=== PATIENT | female | born 1955 | race Native Hawaiian/Other Pacific Islander ===

== ENCOUNTER 2018-07-09 09:29 | Emergency (ER) | payer MEDICARE ==
[2018-07-09 10:05] LABS: Basophils # (Auto) 0.1 K/mm3 (0.0-0.1); Basophils % (Auto) 1.1 % (0.0-1.8); Eosinophils # (Auto) 0.1 K/mm3 (0.0-0.4); Eosinophils % (Auto) 1.4 % (0.0-4.3); Hematocrit 35.3 % (30.3-42.9); Hemoglobin 11.4 gm/dl (10.1-14.3); Lymphocytes # (Auto) 0.9 K/mm3 (1.2-5.4); Lymphocytes % (Auto) 16.8 % (13.4-35.0); Mean Corpuscular HGB Conc 32 % (30-34); Mean Corpuscular Volume 81 fl (79-97); Monocytes # (Auto) 0.3 K/mm3 (0.0-0.8); Monocytes % (Auto) 5.7 % (0.0-7.3); Platelet Count 232 K/mm3 (140-440); Red Blood Count 4.39 M/mm3 (3.65-5.03); Red Cell Distribution Width 15.6 % (13.2-15.2)
[2018-07-09 10:09] LABS: INR 1.03 (0.87-1.13)
[2018-07-09 10:20] LABS: BUN/Creatinine Ratio 25; Blood Urea Nitrogen 15 mg/dL (7-17); Calcium 9.3 mg/dL (8.4-10.2); Hemolysis Index 7
--- NOTE | 2018-07-09 11:08 | Emergency Department Report ---
ED General Adult HPI - General Chief complaint: Dyspnea/Respdistress Stated complaint: SOB/CHEST PAIN Time Seen by Provider: 07/09/18 10:21 Source: patient Mode of arrival: Ambulatory Limitations: No Limitations - History of Present Illness Initial comments: Mrs. Borjas is a 62 yo female with history of insulin-dependent diabetes, CHF, CAD status post CABG and PTCA, hypertension, GERD who presents with 3 days of right lower rib cage pain and epigastric pain. She also has bilateral leg pain especially while walking a few steps. Sharp pain in the right lower rib cage with shortness of breath s9 out of 10 pain gradual Onset of symptoms. Leg pain as been present for 1 week. Chest pain is persistent even at rest. Leg pain is exacerbated by walking. -: Gradual, days(s) (2-3) Location: chest, abdomen, lower extremity Severity scale (0 -10): 9 Quality: aching, sharp Consistency: constant Associated Symptoms: shortness of breath - Related Data Previous Rx's Medication Instructions Recorded Last Taken Type Aspirin [Aspirin BABY CHEW TAB] 81 mg PO QDAY #100 tab.chew 04/25/18 Unknown Rx AtorvaSTATin [Lipitor] 40 mg PO QHS #30 tablet 04/25/18 Unknown Rx Carvedilol [Coreg] 25 mg PO BID #60 tablet 04/25/18 Unknown Rx FLUoxetine [PROzac] 40 mg PO QDAY #30 capsule 04/25/18 Unknown Rx Furosemide [Furosemide ORAL LIQ] 40 mg PO Q12H #60 ml 04/25/18 Unknown Rx Insulin Glargine,Hum.rec.anlog 20 units SQ HS 30 Days #5 pen 04/25/18 Unknown Rx [Lantus] Ipratropium/Albuterol Sulfate 1 ampul IH QIDRT #50 ampul.neb 04/25/18 Unknown Rx [DUONEB *Not for PRN Use*] Lisinopril [Zestril TAB] 5 mg PO QDAY #30 tablet 04/25/18 Unknown Rx Lispro Insulin [Humalog] 6 unit SUB-Q ACHS #1 vial 04/25/18 Unknown Rx Pantoprazole [Protonix TAB] 40 mg PO DAILY #30 tablet 04/25/18 Unknown Rx Potassium Chloride [K-Dur] 20 meq PO Q12HR #60 tablet 04/25/18 Unknown Rx Furosemide [Lasix TAB] 40 mg PO QDAY 30 Days #30 tablet 07/09/18 Unknown Rx HYDROcodone/APAP 5-325 [Marion 1 each PO Q6HR PRN #10 tablet 07/09/18 Unknown Rx 5/325] Allergies Allergy/AdvReac Type Severity Reaction Status Date / Time morphine Allergy Unknown Verified 07/09/18 09:31 ED Review of Systems ROS: Stated complaint: SOB/CHEST PAIN Other details as noted in HPI Comment: All other systems reviewed and negative Constitutional: denies: fever, malaise Respiratory: denies: orthopnea Cardiovascular: chest pain Gastrointestinal: abdominal pain ED Past Medical Hx - Past Medical History Previous Medical History?: Yes Hx Hypertension: Yes Hx Heart Attack/AMI: No Hx Congestive Heart Failure: No Hx Diabetes: Yes Hx Deep Vein Thrombosis: No Hx Asthma: No Hx COPD: No Additional medical history: CAD. High cholesterol - Surgical History Hx Coronary Stent: Yes Hx Open Heart Surgery: Yes (redo CABG) Hx Pacemaker: No Hx Internal Defibrillator: No Additional Surgical History: triple bypass X2 - Social History Smoking Status: Never Smoker Substance Use Type: None - Medications Home Medications: Home Medications Medication Instructions Recorded Confirmed Last Taken Type Aspirin [Aspirin BABY CHEW TAB] 81 mg PO QDAY #100 tab.chew 04/25/18 07/09/18 Unknown Rx AtorvaSTATin [Lipitor] 40 mg PO QHS #30 tablet 04/25/18 07/09/18 Unknown Rx Carvedilol [Coreg] 25 mg PO BID #60 tablet 04/25/18 07/09/18 Unknown Rx FLUoxetine [PROzac] 40 mg PO QDAY #30 capsule 04/25/18 07/09/18 Unknown Rx Furosemide [Furosemide ORAL LIQ] 40 mg PO Q12H #60 ml 04/25/18 07/09/18 Unknown Rx Insulin Glargine,Hum.rec.anlog 20 units SQ HS 30 Days #5 pen 04/25/18 07/09/18 Unknown Rx [Lantus] Ipratropium/Albuterol Sulfate 1 ampul IH QIDRT #50 ampul.neb 04/25/18 07/09/18 Unknown Rx [DUONEB *Not for PRN Use*] Lisinopril [Zestril TAB] 5 mg PO QDAY #30 tablet 04/25/18 07/09/18 Unknown Rx Lispro Insulin [Humalog] 6 unit SUB-Q ACHS #1 vial 04/25/18 07/09/18 Unknown Rx Pantoprazole [Protonix TAB] 40 mg PO DAILY #30 tablet 04/25/18 07/09/18 Unknown Rx Potassium Chloride [K-Dur] 20 meq PO Q12HR #60 tablet 04/25/18 07/09/18 Unknown Rx Furosemide [Lasix TAB] 40 mg PO QDAY 30 Days #30 tablet 07/09/18 Unknown Rx HYDROcodone/APAP 5-325 [Marion 1 each PO Q6HR PRN #10 tablet 07/09/18 Unknown Rx 5/325] ED Physical Exam - General Limitations: No Limitations General appearance: alert, in no apparent distress - Head Head exam: Present: atraumatic, normocephalic - Eye Eye exam: Present: normal appearance - ENT ENT exam: Present: mucous membranes moist - Neck Neck exam: Present: normal inspection - Respiratory Respiratory exam: Present: normal lung sounds bilaterally. Absent: respiratory distress, wheezes, rales, rhonchi - Cardiovascular Cardiovascular Exam: Present: regular rate, normal rhythm, normal heart sounds. Absent: systolic murmur, diastolic murmur, rubs, gallop - GI/Abdominal GI/Abdominal exam: Present: soft, normal bowel sounds. Absent: distended, tenderness, guarding, rebound - Extremities Exam Extremities exam: Present: normal inspection - Back Exam Back exam: Present: normal inspection - Neurological Exam Neurological exam: Present: alert, oriented X3 - Psychiatric Psychiatric exam: Present: normal affect, anxious - Skin Skin exam: Present: warm, dry, intact, normal color. Absent: rash ED Course Vital Signs 07/09/18 07/09/18 07/09/18 09:35 09:58 10:18 Temperature 97.3 F L Pulse Rate 108 H 100 H 101 H Respiratory 22 20 22 Rate Blood Pressure 127/86 [Left] Blood Pressure 132/90 127/86 138/91 [Right] O2 Sat by Pulse 100 100 96 Oximetry 07/09/18 07/09/18 07/09/18 10:27 10:42 12:08 Temperature Pulse Rate 102 H 102 H Respiratory 20 16 Rate Blood Pressure 132/93 [Left] Blood Pressure [Right] O2 Sat by Pulse 98 Oximetry 07/09/18 16:29 Temperature 97.5 F L Pulse Rate 100 H Respiratory 16 Rate Blood Pressure 133/78 [Left] Blood Pressure [Right] O2 Sat by Pulse 100 Oximetry ED Medical Decision Making - Lab Data Result diagrams: 07/09/18 09:46 07/09/18 09:46 - EKG Data 07/09/18 11:07 EKG obtained 932 Sinus tachycardia rate 100 beats a minute normal axis prolonged QT interval no ST elevation left bundle branch block present nonspecific T wave pattern 07/09/18 13:07 Second EKG obtained 1303 Normal sinus rhythm rate 95 beats a minute normal axis prolonged QT interval no ST-T signs of ischemia positive LVH unchanged from previous EKG. - Radiology Data Radiology results: report reviewed, image reviewed - Medical Decision Making Mrs. Borjas presents with several concerns. 1. epigastric pain worse with palpation, no indication of ACS, pancreatitis Possibilties: musculoskeletal pain vs PUD vs biliary colic, will defer to PCP 2. bilateral leg pain, claudification due to PVD vs diabetic neuropathy 3. dyspnea CHF exacerbation, Mrs. Borjas recently ran out of furosemide medication I have made Mrs. Borjas also aware of the CT findings. I also provided paper copies of the reads She has follow up with PCP Dr. Pedroza scheduled, Prescription provided on this encounter: Furosemide, [place] Diagnostics performed in the ED CTA revealed bilateral small pleural effusions right lower lobe lung nodule CT abdomen and pelvis without acute inflammatory process, 2.8 cm aortic abdominal aneurysm, Troponins 3 negative mildly elevated BNP Critical care attestation.: If time is entered above; I have spent that time in minutes in the direct care of this critically ill patient, excluding procedure time. ED Disposition Clinical Impression: Diabetic neuropathy, Lung nodule < 6cm on CT, Abdominal aortic aneurysm, Acute exacerbation of congestive heart failure Disposition: - TO HOME OR SELFCARE Is pt being admited?: No Does the pt Need Aspirin: No Condition: Stable Instructions: Heart Failure (ED), Pulmonary Nodules (ED) Prescriptions: Furosemide [Lasix TAB] 40 mg PO QDAY 30 Days #30 tablet HYDROcodone/APAP 5-325 [Marion 5/325] 1 each PO Q6HR PRN #10 tablet PRN Reason: Pain Referrals: PRIMARY CARE,MD [Primary Care Provider] - 3-5 Days
[2018-07-09] MEDS ORDERED: PEPCID IV ONE (12:26)
[2018-07-09] MEDS ORDERED: TYLENOL PO ONE (12:26)
--- NOTE | 2018-07-09 12:49 | Vascular Lab Report ---
FINAL REPORT EXAM: VL VENOUS DUPLEX LE BILAT HISTORY: leg pain COMPARISON: None. TECHNIQUE: Duplex Doppler imaging of the veins of the bilateral lower extremities was performed. FINDINGS: The veins of the right lower extremity are patent, compressible, and demonstrate normal waveforms and augmentation. The veins of the left lower extremity are patent, compressible, and demonstrate normal waveforms and augmentation. IMPRESSION: No evidence of deep venous thrombosis of bilateral lower extremities
--- NOTE | 2018-07-09 15:15 | Cat Scan Report ---
FINAL REPORT EXAM: CT ANGIO CHEST HISTORY: right lower chest pain COMPARISON: None. TECHNIQUE: Multiple contiguous axial images were obtained through the chest after administration of IV contrast. Reformatted sagittal and coronal images were available for review. 3D maximal intensity projection images were also available for review. FINDINGS: Thyroid: Normal. Lymph nodes: There are enlarged prevascular lymph nodes measuring up to 1.2 centimeters in short axis . There are enlarged subcarinal lymph nodes measuring up to 1.4 centimeters in short axis. Vasculature: No filling defect within the pulmonary artery to suggest pulmonary embolism. Normal reginald sunni of the thoracic aorta without evidence of aneurysm or dissection. Normal branching pattern of the aortic arch. Scattered atherosclerotic calcifications and plaques. Heart: Normal heart size. Moderate to severe coronary artery calcifications. Other mediastinal structures: Normal. Lung parenchyma: Interlobular septal thickening, most prominent at the bilateral lung bases. Nonspeci fic 4 millimeter nodule in the right lower lobe (series 2, image 78) 5 millimeter peripherally based nodule in the right middle lobe (series 2, image 73) Airways: Patent. No bronchiectasis. Pleura: Small right pleural effusion and trace left pleural effusion. Chest wall and spine: No suspicious osseous lesions. No acute fracture or dislocation. Degenerative c hanges of the thoracic spine. Upper Abdomen: No acute abnormality. Some reflux of contrast into the hepatic veins, which suggest ri ght heart dysfunction. IMPRESSION: 1. No evidence of pulmonary embolism. 2. Interstitial edema, most prominent at the bilateral lung bases. Small bilateral pleural effusions right slightly greater than left. 3. Nonspecific 4 millimeter nodule in the right lower lobe and peripherally based nodule in the right middle lobe. Optional CT at 1 year can be obtained for follow-up according to [employer]ischner [employer] cri teria. 4. Some reflux of contrast into the hepatic veins, suggestive of right heart dysfunction.
--- NOTE | 2018-07-09 16:20 | Cat Scan Report ---
FINAL REPORT EXAM: CT ABDOMEN PELVIS W CON HISTORY: epigastric pain COMPARISON: None. TECHNIQUE: Multiple contiguous axial images were obtained from the lung bases to the pubic symphysis after administration of IV contrast. Reformatted sagittal and coronal images were available for revi ew. FINDINGS: Lung bases: Small right pleural effusion. Trace left pleural effusion. Visualized heart and mediastinum: Normal. Liver: Normal. Spleen: Normal. Pancreas: Normal. Gallbladder and Biliary Tree: No calcified gallstones. No biliary ductal dilatation. Adrenal glands: Normal. Kidneys: Symmetric enhancement to both kidneys. No hydronephrosis. Bilateral renal vascular calcifica tions. Mild bilateral renal cortical scarring. Bladder: Normal. Pelvic organs: The uterus is surgically absent. Bowel: No focal wall thickening. No evidence of obstruction. Normal appendix without surrounding infl ammatory change. Diverticulosis of the descending and sigmoid colon without evidence of diverticuliti s. Peritoneum: No significant mesenteric adenopathy. No free air or free fluid. Vasculature: Abdominal aorta is normal in caliber without evidence of aneurysm. Aneurysmal dilatation of the distal abdominal aorta, just above the bifurcation, measuring approximately 2.8 centimeters i n diameter. Scattered atherosclerotic calcifications. Normal appearance of the portal venous system a nd inferior vena cava. Bones and soft tissues: No suspicious osseous lesions. No acute fracture or dislocation. Soft tissues are normal. IMPRESSION: Small right pleural effusion and trace left pleural effusion. No acute intra-abdominal pathology. Diverticulosis of the descending and sigmoid colon without evidence of diverticulitis. Aneurysmal dilatation of the distal abdominal aorta, just above the bifurcation measuring approximate ly 2.8 centimeters in diameter.
[2018-07-09 17:21] VITALS: BP 125/79
== END 2018-07-09 17:21 | disposition home or self-care (01) ==
LOC: ED 09:29
DX: I50.9 Heart failure, unspecified (principal); E11.21 Type 2 diabetes mellitus with diabetic nephropathy; Z79.4 Long term (current) use of insulin; I71.4 Abdominal aortic aneurysm, without rupture; R91.1 Solitary pulmonary nodule; E78.00 Pure hypercholesterolemia, unspecified; Z95.5 Presence of coronary angioplasty implant and graft; Z79.899 Other long term (current) drug therapy; Z88.6 Allergy status to analgesic agent
CPT/HCPCS: 36415; 71275; 74177; 80048; 83880; 84484; 85025; 85610; 93005; 93010; 93970; 96374; 99285; Q9967

== ENCOUNTER 2018-08-04 21:49 | Inpatient (IN) | payer MEDICARE ==
[2018-08-04] MEDS ORDERED: ZOFRAN IV ONE (22:56)
[2018-08-04] MEDS ORDERED: PEPCID IV ONE (22:56)
[2018-08-04 23:18] LABS: Basophils # (Auto) 0.1 K/mm3 (0.0-0.1); Basophils % (Auto) 1.2 % (0.0-1.8); Eosinophils # (Auto) 0.1 K/mm3 (0.0-0.4); Eosinophils % (Auto) 1.7 % (0.0-4.3); Hematocrit 36.8 % (30.3-42.9); Hemoglobin 11.8 gm/dl (10.1-14.3); Lymphocytes # (Auto) 0.9 K/mm3 (1.2-5.4); Lymphocytes % (Auto) 12.2 % (13.4-35.0); Mean Corpuscular HGB Conc 32 % (30-34); Mean Corpuscular Volume 80 fl (79-97); Monocytes # (Auto) 0.4 K/mm3 (0.0-0.8); Platelet Count 288 K/mm3 (140-440); Red Blood Count 4.58 M/mm3 (3.65-5.03); Red Cell Distribution Width 17.5 % (13.2-15.2)
[2018-08-04 23:29] LABS: INR 1.07 (0.87-1.13)
[2018-08-04 23:30] LABS: Partial Thromboplastin Time 24.4 Sec. (24.2-36.6)
--- NOTE | 2018-08-04 23:50 | XRay Report ---
PROCEDURE: XR CHEST ROUTINE 2V TECHNIQUE: PA and lateral chest HISTORY: chest pain COMPARISONS: April 23, 2018 FINDINGS: Cardiac silhouette is enlarged. Status post median sternotomy. Increased interstitial markings with septal lines bilaterally consistent with mild interstitial pulmo nary edema. No airspace consolidation or pleural effusions. Trace fluid along the fissures. IMPRESSION: Cardiomegaly with mild interstitial pulmonary edema. Status post median sternotomy.. This document is electronically signed by Quan Graf MD., August 04 2018 11:48:57 PM ET
[2018-08-04] MEDS ORDERED: LASIX IV ONE (23:54)
--- NOTE | 2018-08-05 00:18 | Ultrasound Report ---
US ABDOMEN LIMITED CLINICAL INDICATION: Female, 62 years of age. RUQ/epigastric pain COMPARISON: CT abdomen and pelvis from June 2018. TECHNIQUE: Several real-time grayscale and color Doppler images were obtained. Permanent images were secured for documentation. FINDINGS: Homogeneous echogenicity visualized portion of the pancreas and liver. Visualized aorta is normal in caliber. Small calcified plaque along the aorta. Right kidney measures 10.6 cm in length. No gross focal renal lesion or hydronephrosis. The common bile duct is dilated measuring 14 mm. No shadowing gallstones. Gallbladder wall thickening measuring 6 mm. IMPRESSION: 1. No shadowing gallstones. Gallbladder wall thickening of uncertain etiology. No pericholecystic flu id. 2. Dilatation of common bile duct measuring 14 mm. No obstructive lesion identified along the visuali zed portions of the common bile duct. Correlation with bilirubin suggested. This document is electronically signed by Nagi Thomas DO., August 05 2018 12:16:05 AM ET
--- NOTE | 2018-08-05 00:56 | Emergency Department Report ---
ED Shortness of Breath HPI - General Chief Complaint: Chest Pain Stated Complaint: CHEST PAIN/RADHA Time Seen by Provider: 08/04/18 22:47 Source: patient, family, EMS Mode of arrival: Stretcher Limitations: No Limitations - History of Present Illness Initial Comments: Patient is a 62-year-old female who has a past history of coronary disease and CABG congestive heart failure and hypertension who is presenting with increased shortness of breath for the past week. Patient's daughter states that with very minimal exertion the patient is very short of breath and fatigued. Patient also for the last 3 months is having issues with her abdomen. Patient has epigastric discomfort which is worse when she eats or drinks. Patient hadn't numerous episodes of nausea and vomiting. Patient feels very weak now. Patient denies any fever nausea vomiting or diarrhea. Patient states she is compliant with medications. - Related Data Previous Rx's Medication Instructions Recorded Last Taken Type Aspirin [Aspirin BABY CHEW TAB] 81 mg PO QDAY #100 tab.chew 04/25/18 08/03/18 Rx AtorvaSTATin [Lipitor] 40 mg PO QHS #30 tablet 04/25/18 08/03/18 Rx Carvedilol [Coreg] 25 mg PO BID #60 tablet 04/25/18 08/03/18 Rx FLUoxetine [PROzac] 40 mg PO QDAY #30 capsule 04/25/18 08/03/18 Rx Furosemide [Furosemide ORAL LIQ] 40 mg PO Q12H #60 ml 04/25/18 08/03/18 Rx Insulin Glargine,Hum.rec.anlog 20 units SQ HS 30 Days #5 pen 04/25/18 08/03/18 Rx [Lantus] Ipratropium/Albuterol Sulfate 1 ampul IH QIDRT #50 ampul.neb 04/25/18 08/03/18 Rx [DUONEB *Not for PRN Use*] Lisinopril [Zestril TAB] 5 mg PO QDAY #30 tablet 04/25/18 08/03/18 Rx Lispro Insulin [Humalog] 6 unit SUB-Q ACHS #1 vial 04/25/18 08/03/18 Rx Pantoprazole [Protonix TAB] 40 mg PO DAILY #30 tablet 04/25/18 08/03/18 Rx Potassium Chloride [K-Dur] 20 meq PO Q12HR #60 tablet 04/25/18 08/03/18 Rx Furosemide [Lasix TAB] 40 mg PO QDAY 30 Days #30 tablet 07/09/18 08/03/18 Rx HYDROcodone/APAP 5-325 [[place] 1 each PO Q6HR PRN #10 tablet 07/09/18 08/03/18 Rx 5/325] Allergies Allergy/AdvReac Type Severity Reaction Status Date / Time morphine Allergy Unknown Verified 07/09/18 09:31 ED Review of Systems ROS: Stated complaint: CHEST PAIN/RADHA Other details as noted in HPI Comment: All other systems reviewed and negative ED Past Medical Hx - Past Medical History Hx Hypertension: Yes Hx Heart Attack/AMI: No Hx Congestive Heart Failure: No Hx Diabetes: Yes Hx Deep Vein Thrombosis: No Hx Asthma: No Hx COPD: No Additional medical history: CAD. High cholesterol - Surgical History Hx Coronary Stent: Yes Hx Open Heart Surgery: Yes (redo CABG) Hx Pacemaker: No Hx Internal Defibrillator: No Additional Surgical History: triple bypass X2 - Social History Smoking Status: Former Smoker Substance Use Type: None - Medications Home Medications: Home Medications Medication Instructions Recorded Confirmed Last Taken Type Aspirin [Aspirin BABY CHEW TAB] 81 mg PO QDAY #100 tab.chew 04/25/18 08/04/18 08/03/18 Rx AtorvaSTATin [Lipitor] 40 mg PO QHS #30 tablet 04/25/18 08/04/18 08/03/18 Rx Carvedilol [Coreg] 25 mg PO BID #60 tablet 04/25/18 08/04/18 08/03/18 Rx FLUoxetine [PROzac] 40 mg PO QDAY #30 capsule 04/25/18 08/04/18 08/03/18 Rx Furosemide [Furosemide ORAL LIQ] 40 mg PO Q12H #60 ml 04/25/18 08/04/18 08/03/18 Rx Insulin Glargine,Hum.rec.anlog 20 units SQ HS 30 Days #5 pen 04/25/18 08/04/18 08/03/18 Rx [Lantus] Ipratropium/Albuterol Sulfate 1 ampul IH QIDRT #50 ampul.neb 04/25/18 08/04/18 08/03/18 Rx [DUONEB *Not for PRN Use*] Lisinopril [Zestril TAB] 5 mg PO QDAY #30 tablet 04/25/18 08/04/18 08/03/18 Rx Lispro Insulin [Humalog] 6 unit SUB-Q ACHS #1 vial 04/25/18 08/04/18 08/03/18 Rx Pantoprazole [Protonix TAB] 40 mg PO DAILY #30 tablet 04/25/18 08/04/18 08/03/18 Rx Potassium Chloride [K-Dur] 20 meq PO Q12HR #60 tablet 04/25/18 08/04/18 08/03/18 Rx Furosemide [Lasix TAB] 40 mg PO QDAY 30 Days #30 tablet 07/09/18 08/04/18 08/03/18 Rx HYDROcodone/APAP 5-325 [[place] 1 each PO Q6HR PRN #10 tablet 07/09/18 08/04/18 08/03/18 Rx 5/325] ED Physical Exam - General Limitations: No Limitations General appearance: alert, in no apparent distress - Head Head exam: Present: atraumatic, normocephalic - Eye Eye exam: Present: normal appearance - ENT ENT exam: Present: normal orophraynx, mucous membranes moist - Neck Neck exam: Present: normal inspection - Respiratory Respiratory exam: Present: normal lung sounds bilaterally, rales. Absent: respiratory distress, wheezes, rhonchi, stridor, chest wall tenderness - Cardiovascular Cardiovascular Exam: Present: regular rate, normal rhythm. Absent: systolic murmur, diastolic murmur, rubs, gallop - GI/Abdominal GI/Abdominal exam: Present: soft, tenderness (epigastric), normal bowel sounds. Absent: distended, guarding, rebound, rigid - Extremities Exam Extremities exam: Present: normal inspection - Back Exam Back exam: Present: normal inspection - Neurological Exam Neurological exam: Present: alert, oriented X3 - Psychiatric Psychiatric exam: Present: normal affect, normal mood - Skin Skin exam: Present: warm, dry, intact, normal color. Absent: rash ED Course Vital Signs 08/04/18 08/05/18 08/05/18 22:46 00:16 00:18 Temperature 97.8 F Pulse Rate 118 H 116 H 117 H Respiratory 18 13 13 Rate Blood Pressure 123/87 Blood Pressure 127/87 [Right] O2 Sat by Pulse 98 98 Oximetry 08/05/18 00:30 Temperature Pulse Rate 118 H Respiratory 12 Rate Blood Pressure 127/87 Blood Pressure [Right] O2 Sat by Pulse Oximetry ED Medical Decision Making - Lab Data Result diagrams: 08/04/18 23:01 08/04/18 23:01 Lab Results 08/04/18 08/04/18 08/04/18 Range/Units 23:01 23:01 23:01 WBC 7.1 (4.5-11.0) K/mm3 RBC 4.58 (3.65-5.03) M/mm3 Hgb 11.8 (10.1-14.3) gm/dl Hct 36.8 (30.3-42.9) % MCV 80 (79-97) fl MCH 26 L (28-32) pg MCHC 32 (30-34) % RDW 17.5 H (13.2-15.2) % Plt Count 288 (140-440) K/mm3 Lymph % (Auto) 12.2 L (13.4-35.0) % [place] % (Auto) 5.0 (0.0-7.3) % Eos % (Auto) 1.7 (0.0-4.3) % Baso % (Auto) 1.2 (0.0-1.8) % Lymph # 0.9 L (1.2-5.4) K/mm3 [place] # 0.4 (0.0-0.8) K/mm3 Eos # 0.1 (0.0-0.4) K/mm3 Baso # 0.1 (0.0-0.1) K/mm3 Seg Neutrophils % 79.9 H (40.0-70.0) % Seg Neutrophils # 5.7 (1.8-7.7) K/mm3 PT 14.6 (12.2-14.9) Sec. INR 1.07 (0.87-1.13) APTT 24.4 (24.2-36.6) Sec. Sodium 140 (137-145) mmol/L Potassium 4.4 (3.6-5.0) mmol/L Chloride 98.5 (98-107) mmol/L Carbon Dioxide 29 (22-30) mmol/L Anion Gap 17 mmol/L BUN 16 (7-17) mg/dL Creatinine 0.9 (0.7-1.2) mg/dL Estimated GFR > 60 ml/min BUN/Creatinine Ratio 18 % Glucose 174 H (65-100) mg/dL Calcium 9.0 (8.4-10.2) mg/dL Total Bilirubin 1.00 (0.1-1.2) mg/dL AST 20 (5-40) units/L ALT 58 H (7-56) units/L Alkaline Phosphatase 208 H (35-129) units/L Troponin T (0.00-0.029) ng/mL NT-Pro-B Natriuret Pep (0-900) pg/mL Total Protein 6.8 (6.3-8.2) g/dL Albumin 3.6 L (3.9-5) g/dL Albumin/Globulin Ratio 1.1 % Lipase (13-60) units/L // Range/Units 23:05 WBC (4.5-11.0) K/mm3 RBC (3.65-5.03) M/mm3 Hgb (10.1-14.3) gm/dl Hct (30.3-42.9) % MCV (79-97) fl MCH (28-32) pg MCHC (30-34) % RDW (13.2-15.2) % Plt Count (140-440) K/mm3 Lymph % (Auto) (13.4-35.0) % [place] % (Auto) (0.0-7.3) % Eos % (Auto) (0.0-4.3) % Baso % (Auto) (0.0-1.8) % Lymph # (1.2-5.4) K/mm3 [place] # (0.0-0.8) K/mm3 Eos # (0.0-0.4) K/mm3 Baso # (0.0-0.1) K/mm3 Seg Neutrophils % (40.0-70.0) % Seg Neutrophils # (1.8-7.7) K/mm3 PT (12.2-14.9) Sec. INR (0.87-1.13) APTT (24.2-36.6) Sec. Sodium (137-145) mmol/L Potassium (3.6-5.0) mmol/L Chloride (98-107) mmol/L Carbon Dioxide (22-30) mmol/L Anion Gap mmol/L BUN (7-17) mg/dL Creatinine (0.7-1.2) mg/dL Estimated GFR ml/min BUN/Creatinine Ratio % Glucose (65-100) mg/dL Calcium (8.4-10.2) mg/dL Total Bilirubin (0.1-1.2) mg/dL AST (5-40) units/L ALT (7-56) units/L Alkaline Phosphatase (35-129) units/L Troponin T 0.014 (0.00-0.029) ng/mL NT-Pro-B Natriuret Pep 2255 H (0-900) pg/mL Total Protein (6.3-8.2) g/dL Albumin (3.9-5) g/dL Albumin/Globulin Ratio % Lipase 55 (13-60) units/L - EKG Data -: EKG Interpreted by Me - EKG Data 08/05/18 02:12 EKG shows a sinus tachycardia with a rate of 113. Axes normal intervals normal. There is occasional PVCs. Patient has T-wave inversions in V5 and V6. There are no ST segment elevations or depressions. Interpretation is 2255 - Radiology Data Chest x-ray shows cardiomegaly with pulmonary vascular congestion and mild edema [facility] [address] [place] [address] Ultrasound Report Signed Patient: KIRA GRANDA MR#: [id number] : 1955 Acct:[id number] Age/Sex: 62 / F ADM Date: 08/04/18 Loc: ED Attending Dr: Ordering Physician: SIMA JEAN MD Date of Service: 08/04/18 Procedure(s): US abdomen limited Accession Number(s): [id number] cc: SIMA JEAN MD US ABDOMEN LIMITED CLINICAL INDICATION: Female, 62 years of age. RUQ/epigastric pain COMPARISON: CT abdomen and pelvis from June 2018. TECHNIQUE: Several real-time grayscale and color Doppler images were obtained. Permanent images were secured for documentation. FINDINGS: Homogeneous echogenicity visualized portion of the pancreas and liver. Visualized aorta is normal in caliber. Small calcified plaque along the aorta. Right kidney measures 10.6 cm in length. No gross focal renal lesion or hydronephrosis. The common bile duct is dilated measuring 14 mm. No shadowing gallstones. Gallbladder wall thickening measuring 6 mm. IMPRESSION: 1. No shadowing gallstones. Gallbladder wall thickening of uncertain etiology. No pericholecystic fluid. 2. Dilatation of common bile duct measuring 14 mm. No obstructive lesion identified along the visualized portions of the common bile duct. Correlation with bilirubin suggested. This document is electronically signed by Nagi Thomas DO., August 05 2018 12:16:05 AM ET Transcribed By: LMA Dictated By: TITO THOMAS MD Electronically Authenticated By: TITO THOMAS MD Signed Date/Time: 08/05/18 0018 DD/ 000 - Medical Decision Making Patient's breathing is much improved with oxygen. Patient was given 40 mg Lasix IV and we're waiting for her to begin diuresing. Regarding the patient's abdominal pain patient may have gallstones that is a calculus. She she does have some thickening of the gallbladder without contrast stomata shadowing. Further investigations may be needed with gastroenterology. Patient be admitted to the hospitalist service at this time. Critical care attestation.: If time is entered above; I have spent that time in minutes in the direct care of this critically ill patient, excluding procedure time. ED Disposition Clinical Impression: CHF exacerbation Qualifiers: Heart failure type: unspecified Qualified Code(s): I50.9 - Heart failure, unspecified Abdominal pain Qualifiers: Abdominal location: epigastric Qualified Code(s): R10.13 - Epigastric pain Disposition: 09 OP ADMIT IP TO THIS HOSP Is pt being admited?: Yes Does the pt Need Aspirin: No Condition: Stable Time of Disposition: 02:26
[2018-08-05 01:06] LABS: Alanine Aminotransferase 58 units/L (7-56); Albumin 3.6 g/dL (3.9-5); BUN/Creatinine Ratio 18; Blood Urea Nitrogen 16 mg/dL (7-17); Hemolysis Index 3
[2018-08-05] MEDS ORDERED: ALUM-MAG HYDROX-SIMETH 200-200-20MG/5ML PO ONE (02:24)
[2018-08-05] MEDS ORDERED: BENTYL IM ONE (02:24)
[2018-08-05] MEDS ORDERED: PERCOCET 5/325 PO PRN (02:44)
[2018-08-05] MEDS ORDERED: TYLENOL PO PRN (02:44)
[2018-08-05] MEDS ORDERED: SODIUM CHLORIDE FLUSH SYRINGE 10 ML IV PRN (02:44)
--- NOTE | 2018-08-05 03:17 | History and Physical Report ---
History of Present Illness Date of examination: 08/05/18 Date of admission: 08/05/2018 Chief complaint: SOB, Abdominal pain, nausea and vomiting History of present illness: Pt is a 62-year-old female with PMHx CAD s/p CABG, CHF, DM type 2 on insulin, hyperlipidemia, HTN who presents to the ER for c/o SOB, epigastric abdominal pain, nausea and vomiting for 2 weeks. According to pt's daughter in room, the patient has been sick for more that 2 weeks, she states that the pt has been complaining of persistent pain in the epigastric area, that radiates to the RUQ, the pain is associated with n/v yellow liquid. Pt and her daughter states that she was seen here in the ER 2 weeks ago for the same complaints, and discharged. Pt states that the pain is getting worse, she reports food stocking in her epigastric area, SOB with minimal exertion and fatigued. In the ER, pt had an US that shows gallbladder wall thickening of uncertain etiology, dilated common bile duck measuring 14mm, he ALT was 58, BNP was 2255, GI is consulted for evaluation and pt is admitted for further evaluation and treatment. Past History Past Medical History: CAD (s/p CABG), diabetes, heart failure, hypertension, hyperlipidemia Past Surgical History: CABG Social history: Lives alone, smoking (quit mqny years ago) Family history: no significant family history Medications and Allergies Allergies Allergy/AdvReac Type Severity Reaction Status Date / Time morphine Allergy Unknown Verified 07/09/18 09:31 Home Medications Medication Instructions Recorded Confirmed Last Taken Type Aspirin [Aspirin BABY CHEW TAB] 81 mg PO QDAY #100 tab.chew 04/25/18 08/04/18 08/03/18 Rx AtorvaSTATin [Lipitor] 40 mg PO QHS #30 tablet 04/25/18 08/04/18 08/03/18 Rx Carvedilol [Coreg] 25 mg PO BID #60 tablet 04/25/18 08/04/18 08/03/18 Rx FLUoxetine [PROzac] 40 mg PO QDAY #30 capsule 04/25/18 08/04/18 08/03/18 Rx Furosemide [Furosemide ORAL LIQ] 40 mg PO Q12H #60 ml 04/25/18 08/04/18 08/03/18 Rx Insulin Glargine,Hum.rec.anlog 20 units SQ HS 30 Days #5 pen 04/25/18 08/04/18 08/03/18 Rx [Lantus] Ipratropium/Albuterol Sulfate 1 ampul IH QIDRT #50 ampul.neb 04/25/18 08/04/18 08/03/18 Rx [DUONEB *Not for PRN Use*] Lisinopril [Zestril TAB] 5 mg PO QDAY #30 tablet 04/25/18 08/04/18 08/03/18 Rx Lispro Insulin [Humalog] 6 unit SUB-Q ACHS #1 vial 04/25/18 08/04/18 08/03/18 Rx Pantoprazole [Protonix TAB] 40 mg PO DAILY #30 tablet 04/25/18 08/04/18 08/03/18 Rx Potassium Chloride [K-Dur] 20 meq PO Q12HR #60 tablet 04/25/18 08/04/18 08/03/18 Rx Furosemide [Lasix TAB] 40 mg PO QDAY 30 Days #30 tablet 07/09/18 08/04/18 08/03/18 Rx HYDROcodone/APAP 5-325 [[place] 1 each PO Q6HR PRN #10 tablet 07/09/18 08/04/18 08/03/18 Rx 5/325] Active Meds: Active Medications Acetaminophen (Tylenol) 650 mg PO Q4H PRN PRN Reason: Pain MILD(1-3)/Fever >100.5/GRIJALVA Furosemide (Lasix) 20 mg IV BID@0600,1800 MALACHI Ondansetron HCl (Zofran) 4 mg IV Q8H PRN PRN Reason: Nausea And Vomiting Oxycodone/Acetaminophen (Percocet 5/325) 1 tab PO Q6H PRN PRN Reason: Pain, Moderate (4-6) Sodium Chloride (Sodium Chloride Flush Syringe 10 Ml) 10 ml IV BID MALACHI Sodium Chloride (Sodium Chloride Flush Syringe 10 Ml) 10 ml IV PRN PRN PRN Reason: LINE FLUSH Review of Systems Respiratory: shortness of breath Gastrointestinal: abdominal pain, nausea, vomiting Exam - Constitutional Vitals: Temp Pulse Resp BP Pulse Ox 97.8 F 128 H 18 138/85 97 08/04/18 22:46 08/05/18 02:38 08/05/18 02:38 08/05/18 02:38 08/05/18 02:38 General appearance: Present: mild distress - EENT Eyes: Present: EOM intact ENT: hearing intact - Neck Neck: Present: normal ROM - Respiratory Respiratory effort: labored Respiratory: bilateral: diminished - Cardiovascular Rhythm: regular - Extremities Extremities: no ischemia, No edema Peripheral Pulses: within normal limits - Abdominal General gastrointestinal: Present: tender (epigastric/RUQ) Localized gastrointestinal: tender: LUQ Female genitourinary: Present: deferred - Rectal Rectal Exam: deferred - Integumentary Integumentary: Present: clear, warm, dry - Musculoskeletal Musculoskeletal: strength equal bilaterally - Psychiatric Psychiatric: appropriate mood/affect - Neurologic Neurologic: moves all extremities Results - Labs CBC & Chem 7: 08/04/18 23:01 08/04/18 23:01 Labs: Laboratory Last Values WBC 7.1 K/mm3 (4.5-11.0) 08/04/18 23: RBC 4.58 M/mm3 (3.65-5.03) 08/04/18 23:01 Hgb 11.8 gm/dl (10.1-14.3) 08/04/18 23:01 Hct 36.8 % (30.3-42.9) 08/04/18 23:01 MCV 80 fl (79-97) 08/04/18 23:01 MCH 26 pg (28-32) L 08/04/18 23:01 MCHC 32 % (30-34) 08/04/18 23:01 RDW 17.5 % (13.2-15.2) H 08/04/18 23:01 Plt Count 288 K/mm3 (140-440) 08/04/18 23:01 Lymph % (Auto) 12.2 % (13.4-35.0) L 08/04/18 23:01 [place] % (Auto) 5.0 % (0.0-7.3) 08/04/18 23:01 Eos % (Auto) 1.7 % (0.0-4.3) 08/04/18 23:01 Baso % (Auto) 1.2 % (0.0-1.8) 08/04/18 23:01 Lymph # 0.9 K/mm3 (1.2-5.4) L 08/04/18 23:01 [place] # 0.4 K/mm3 (0.0-0.8) 08/04/18 23:01 Eos # 0.1 K/mm3 (0.0-0.4) 08/04/18 23:01 Baso # 0.1 K/mm3 (0.0-0.1) 08/04/18 23:01 Seg Neutrophils % 79.9 % (40.0-70.0) H 08/04/18 23:01 Seg Neutrophils # 5.7 K/mm3 (1.8-7.7) 08/04/18 23:01 PT 14.6 Sec. (12.2-14.9) 08/04/18 23:01 INR 1.07 (0.87-1.13) 08/04/18 23:01 APTT 24.4 Sec. (24.2-36.6) 08/04/18 23:01 Sodium 140 mmol/L (137-145) 08/04/18 23:01 Potassium 4.4 mmol/L (3.6-5.0) 08/04/18 23:01 Chloride 98.5 mmol/L (98-107) 08/04/18 23:01 Carbon Dioxide 29 mmol/L (22-30) 08/04/18 23:01 Anion Gap 17 mmol/L 08/04/18 23:01 BUN 16 mg/dL (7-17) 08/04/18 23:01 Creatinine 0.9 mg/dL (0.7-1.2) 08/04/18 23:01 Estimated GFR > 60 ml/min 08/04/18 23:01 BUN/Creatinine Ratio 18 % 08/04/18 23:01 Glucose 174 mg/dL (65-100) H 08/04/18 23:01 Calcium 9.0 mg/dL (8.4-10.2) 08/04/18 23:01 Total Bilirubin 1.00 mg/dL (0.1-1.2) 08/04/18 23:01 AST 20 units/L (5-40) 08/04/18 23:01 ALT 58 units/L (7-56) H 08/04/18 23:01 Alkaline Phosphatase 208 units/L (35-129) H 08/04/18 23:01 Troponin T 0.014 ng/mL (0.00-0.029) 08/04/18 23:05 NT-Pro-B Natriuret Pep 2255 pg/mL (0-900) H 08/04/18 23:05 Total Protein 6.8 g/dL (6.3-8.2) 08/04/18 23:01 Albumin 3.6 g/dL (3.9-5) L 08/04/18 23:01 Albumin/Globulin Ratio 1.1 % 08/04/18 23:01 Lipase 55 units/L (13-60) 08/04/18 23:05 Assessment and Plan Assessment and plan: 1. Epigastric abdominal (Possibly due to gastroperesis) 2. Nausea/vomiting 3. Abnormal US with gallbladder thickening 4. CAD s/p CABG 5. CHF (EF unknown, BNP 2255) 7. DM type 2 on insulin 8. Hyperlipidemia 9. HTN Plan: Admit to [facility] Dilaudid PRN for pain Antiemetic for nausea/vomiting Consult GI for evaluation of abdominal pain Lasix PRN for CHF Resume home meds Accu-Chek before meals and at bedtime DVT prophylaxis Plan of care was discussed with patient and daughter, voiced understanding Patient's condition and plan of care was d/w Dr Gates Advance Directives: Yes VTE prophylaxis?: Chemical Plan of care discussed with patient/family: Yes
[2018-08-05] MEDS ORDERED: DILAUDID ONE (03:37)
[2018-08-05] MEDS: REGLAN IV PRN ×2 (04:01→09:40)
[2018-08-05] MEDS ORDERED: DILAUDID IV ONE (04:02)
[2018-08-05] MEDS: LASIX IV SCH ×2 (06:07→18:55)
[2018-08-05] MEDS ORDERED: LASIX ONE (06:07)
[2018-08-05] MEDS ORDERED: NORCO 5/325 PO PRN (07:23)
[2018-08-05] MEDS ORDERED: FUROSEMIDE 40 MG PO SCH (07:30)
[2018-08-05] MEDS: HumuLIN R SUB-Q SCH ×4 (09:30→21:19)
[2018-08-05] MEDS: HumaLOG SUB-Q SCH ×4 (09:31→21:19)
[2018-08-05] MEDS: K-DUR PO SCH ×2 (09:32→21:24)
[2018-08-05] MEDS: ZESTRIL PO SCH (09:33)
[2018-08-05] MEDS: BABY ASPIRIN PO SCH (09:33)
[2018-08-05] MEDS: COREG PO SCH ×2 (09:33→21:17)
[2018-08-05] MEDS: PROzac PO SCH (09:37)
[2018-08-05] MEDS: PROTONIX PO SCH (09:37)
[2018-08-05] MEDS: SODIUM CHLORIDE FLUSH SYRINGE 10 ML IV SCH (10:00)
[2018-08-05] MEDS ORDERED: LASIX PO SCH (10:00)
--- NOTE | 2018-08-05 11:35 | Event Note ---
Date: 08/05/18 This is a follow-up from an admission earlier this morning. Patient seen and examined. We will continue the plan as outlined in the H & P. Total time equals 25 minutes with greater than 50% spent on coordination of care and counseling
[2018-08-05] MEDS: ZOFRAN IV PRN (11:52)
[2018-08-05] MEDS: DUONEB *Not for PRN Use IH SCH ×4 (13:49→21:58)
--- NOTE | 2018-08-05 14:12 | Gastroenterology Consultation ---
History of Present Illness - Reason for Consult Consult date: 08/05/18 abdominal pain, abnormal U/S Requesting physician: CHELSIE BALDERAS - History of Present Illness Patient is a 62 y/o female with PMH of CAD (s/p CABG), CHF, DM, hyperlipidemeia, and HTN who presented to ED with c/o SOB, abdominal pain, and N/V x 2 weeks. Upon admission, abdominal U/S showed wall thickening of gallbladder and dilation of CBD to which GI has been consulted. This morning patient was resting in bed w/o acute distress but ill appearing with multiple episodes of vomiting upon exam (emesis non-bloody). She reports chronic abdominal pain for years that is located in epigastric area and radiates to RUQ and back with associated N/V. Symptoms are exacerbated with PO intake. Weight is stable. Denies fever, CP, jaundice, signs of bleeding, diarrhea, or constipation. Takes occasional Motrin at home for pain, along with daily ASA and Plavix (last dose 3 weeks ago per pt report). No alcohol use or hx of liver disease. Patient is previously known to our service and is followed by Dr. Landaverde. She has a hx of chronic abdominal pain (since ~2009) with a prior workup in the past with multiple CT scans and an EGD/colonoscopy in 2009 for abd pain unimproved with PPI that showed moderate erosive antral gastritis and mild sigmoid diverticulosis. Past History Past Medical History: CAD (s/p CABG), diabetes, heart failure, hypertension, hyperlipidemia Past Surgical History: CABG Social history: Lives alone, smoking (quit mqny years ago) Family history: cancer (mother (unknown type)) Medications and Allergies Allergies Allergy/AdvReac Type Severity Reaction Status Date / Time morphine Allergy Unknown Verified 07/09/18 09:31 Home Medications Medication Instructions Recorded Confirmed Last Taken Type Aspirin [Aspirin BABY CHEW TAB] 81 mg PO QDAY #100 tab.chew 04/25/18 08/04/18 08/03/18 Rx AtorvaSTATin [Lipitor] 40 mg PO QHS #30 tablet 04/25/18 08/04/18 08/03/18 Rx Carvedilol [Coreg] 25 mg PO BID #60 tablet 04/25/18 08/04/18 08/03/18 Rx FLUoxetine [PROzac] 40 mg PO QDAY #30 capsule 04/25/18 08/04/18 08/03/18 Rx Furosemide [Furosemide ORAL LIQ] 40 mg PO Q12H #60 ml 04/25/18 08/04/18 08/03/18 Rx Insulin Glargine,Hum.rec.anlog 20 units SQ HS 30 Days #5 pen 04/25/18 08/04/18 08/03/18 Rx [Lantus] Ipratropium/Albuterol Sulfate 1 ampul QIDRT #50 ampul.neb 04/25/18 08/04/18 08/03/18 Rx [DUONEB *Not for PRN Use*] Lisinopril [Zestril TAB] 5 mg PO QDAY #30 tablet 04/25/18 08/04/18 08/03/18 Rx Lispro Insulin [Humalog] 6 unit SUB-Q ACHS #1 vial 04/25/18 08/04/18 08/03/18 Rx Pantoprazole [Protonix TAB] 40 mg PO DAILY #30 tablet 04/25/18 08/04/18 08/03/18 Rx Potassium Chloride [K-Dur] 20 meq PO Q12HR #60 tablet 04/25/18 08/04/18 08/03/18 Rx Furosemide [Lasix TAB] 40 mg PO QDAY 30 Days #30 tablet 07/09/18 08/04/18 08/03/18 Rx HYDROcodone/APAP 5-325 [Lynx 1 each PO Q6HR PRN #10 tablet 07/09/18 08/04/18 08/03/18 Rx 5/325] Active Meds: Active Medications Acetaminophen (Tylenol) 650 mg PO Q4H PRN PRN Reason: Pain MILD(1-3)/Fever >100.5/GRIJALVA Albuterol/Ipratropium (Duoneb *Not For Prn Use*) 1 ampul QIDRT [facility] Last Admin: 08/05/18 14:01 Dose: 1 ampul Documented by: Aspirin (Baby Aspirin) 81 mg PO QDAY [facility] Last Admin: 08/05/18 09:33 Dose: 81 mg Documented by: Atorvastatin Calcium (Lipitor) 40 mg PO QHS [facility] Carvedilol (Coreg) 25 mg PO BID [facility] Last Admin: 08/05/18 09:33 Dose: 25 mg Documented by: Fluoxetine HCl (Prozac) 40 mg PO QDAY [facility] Last Admin: 08/05/18 09:37 Dose: 40 mg Documented by: Furosemide (Lasix) 20 mg IV BID@0600,1800 [facility] Last Admin: 08/05/18 06:07 Dose: 20 mg Documented by: Insulin Glargine (Lantus) 20 units SUB-Q [facility] Insulin Human Lispro (Humalog) 6 unit SUB-Q [facility] Last Admin: 08/05/18 12:22 Dose: 6 unit Documented by: Insulin Human Regular (Humulin R) 0 units SUB-Q [facility]; Protocol Last Admin: 08/05/18 12:23 Dose: 4 units Documented by: Lisinopril (Zestril) 5 mg PO QDAY [facility] Last Admin: 08/05/18 09:33 Dose: 5 mg Documented by: Metoclopramide HCl (Reglan) 10 mg IV Q6H PRN PRN Reason: Nausea And Vomiting Last Admin: 08/05/18 09:40 Dose: 10 mg Documented by: Ondansetron HCl (Zofran) 4 mg IV Q8H PRN PRN Reason: Nausea And Vomiting Last Admin: 08/05/18 11:52 Dose: 4 mg Documented by: Oxycodone/Acetaminophen (Percocet 5/325) 1 tab PO Q6H PRN PRN Reason: Pain, Moderate (4-6) Pantoprazole Sodium (Protonix) 40 mg PO DAILY [facility] Last Admin: 08/05/18 09:37 Dose: 40 mg Documented by: Potassium Chloride (K-Dur) 20 meq PO Q12HR [facility] Last Admin: 08/05/18 09:32 Dose: 20 meq Documented by: Sodium Chloride (Sodium Chloride Flush Syringe 10 Ml) 10 ml IV BID [facility] Last Admin: 08/05/18 10:00 Dose: 10 ml Documented by: Sodium Chloride (Sodium Chloride Flush Syringe 10 Ml) 10 ml IV PRN PRN PRN Reason: LINE FLUSH medications reviewed/updated as required Review of Systems - Review of Systems All systems: negative Gastrointestinal: abdominal pain, nausea, vomiting Exam - Constitutional Vital Signs: Temp Pulse Resp BP Pulse Ox 97.4 F L 106 H 18 120/82 96 08/05/18 12:23 08/05/18 12:22 08/05/18 12:22 08/05/18 12:22 08/05/18 12:22 General appearance: no acute distress - EENT Eyes: PERRL, EOM intact ENT: hearing intact - Respiratory Respiratory: bilateral: diminished - Cardiovascular Rhythm: other (tachycardia) - Gastrointestinal General gastrointestinal: Present: soft, tender (epigastric/RUQ), non-distended, normal bowel sounds - Neurologic Neurological: alert and oriented x3 - Labs CBC & Chem 7: 08/04/18 23:01 08/04/18 23:01 Lab Results: Laboratory Results - last 24 hr 08/04/18 08/04/18 08/04/18 23:01 23:01 23:01 WBC 7.1 RBC 4.58 Hgb 11.8 Hct 36.8 MCV 80 MCH 26 L MCHC 32 RDW 17.5 H Plt Count 288 Lymph % (Auto) 12.2 L [place] % (Auto) 5.0 Eos % (Auto) 1.7 Baso % (Auto) 1.2 Lymph # 0.9 L [place] # 0.4 Eos # 0.1 Baso # 0.1 Seg Neutrophils % 79.9 H Seg Neutrophils # 5.7 PT 14.6 INR 1.07 APTT 24.4 Sodium 140 Potassium 4.4 Chloride 98.5 Carbon Dioxide 29 Anion Gap 17 BUN 16 Creatinine 0.9 Estimated GFR > 60 BUN/Creatinine Ratio 18 Glucose 174 H POC Glucose Calcium 9.0 Total Bilirubin 1.00 AST 20 ALT 58 H Alkaline Phosphatase 208 H Troponin T NT-Pro-B Natriuret Pep Total Protein 6.8 Albumin 3.6 L Albumin/Globulin Ratio 1.1 Lipase 08/04/18 08/05/18 08/05/18 23:05 08:24 10:57 WBC RBC Hgb Hct MCV MCH MCHC RDW Plt Count Lymph % (Auto) [place] % (Auto) Eos % (Auto) Baso % (Auto) Lymph # [place] # Eos # Baso # Seg Neutrophils % Seg Neutrophils # PT INR APTT Sodium Potassium Chloride Carbon Dioxide Anion Gap BUN Creatinine Estimated GFR BUN/Creatinine Ratio Glucose POC Glucose 248 H 264 H Calcium Total Bilirubin AST ALT Alkaline Phosphatase Troponin T 0.014 NT-Pro-B Natriuret Pep 2255 H Total Protein Albumin Albumin/Globulin Ratio Lipase 55 Assessment and Plan 1.chronic abdominal pain 2.N/V 3.abnormal abd U/S -afebrile -WBC WNL (7.1) -plt count and INR WNL -lipase WNL -LFTs-T.marilynn 1.00, AST 20, ALT 58, alk phos 208 -abd U/S showed gallbladder wall thickening and dilation of CBD (14mm) -EGD/colonoscopy in 2009 for abd pain showed moderate erosive antral gastritis and mild sigmoid diverticulosis -etiology unclear- possible peptic vs GB vs sphincter dysfunction vs other (gastroparesis?) -no plan for scope at this time -will order MR/MRCP for further evaluation of u/s results as above -consider HIDA scan vs GES based on results/progress -decrease diet to clear liquids as tolerated -continue PPI and antiemetics (consider trial of ativan if N/V persists) -continue to trend labs and supportive care -further recommendations to follow
--- NOTE | 2018-08-05 17:19 | Event Note ---
Date: 08/05/18 Nurse reports 1 minute episode of V. fib. Cardiology consult. Follow EKG and labs.
[2018-08-05 18:31] LABS: BUN/Creatinine Ratio 23; Blood Urea Nitrogen 21 mg/dL (7-17); Calcium 8.8 mg/dL (8.4-10.2); Hemolysis Index 5
[2018-08-06] MEDS: LANTUS SUB-Q SCH ×2 (00:19→22:19)
[2018-08-06] MEDS: SODIUM CHLORIDE FLUSH SYRINGE 10 ML IV SCH ×3 (06:24→22:21)
[2018-08-06] MEDS: LASIX IV SCH ×2 (06:24→17:55)
[2018-08-06 06:37] LABS: Basophils # (Auto) 0.1 K/mm3 (0.0-0.1); Basophils % (Auto) 1.6 % (0.0-1.8); Eosinophils # (Auto) 0.1 K/mm3 (0.0-0.4); Eosinophils % (Auto) 1.4 % (0.0-4.3); Hematocrit 38.2 % (30.3-42.9); Hemoglobin 11.9 gm/dl (10.1-14.3); Lymphocytes # (Auto) 1.5 K/mm3 (1.2-5.4); Lymphocytes % (Auto) 21.2 % (13.4-35.0); Mean Corpuscular HGB Conc 31 % (30-34); Mean Corpuscular Volume 82 fl (79-97); Monocytes # (Auto) 0.5 K/mm3 (0.0-0.8); Monocytes % (Auto) 6.9 % (0.0-7.3); Platelet Count 284 K/mm3 (140-440); Red Blood Count 4.67 M/mm3 (3.65-5.03); Red Cell Distribution Width 17.9 % (13.2-15.2)
[2018-08-06 07:09] LABS: BUN/Creatinine Ratio 23; Blood Urea Nitrogen 21 mg/dL (7-17); Calcium 9.1 mg/dL (8.4-10.2); Hemolysis Index 0
[2018-08-06 07:13] LABS: Albumin 3.3 g/dL (3.9-5); Bilirubin,Direct 0.4 mg/dL (0-0.2)
[2018-08-06] MEDS: HumaLOG SUB-Q SCH ×4 (07:30→22:23)
[2018-08-06] MEDS: HumuLIN R SUB-Q SCH ×4 (07:30→22:23)
[2018-08-06] MEDS: DUONEB *Not for PRN Use IH SCH ×4 (09:15→19:25)
--- NOTE | 2018-08-06 10:59 | Nuclear Medicine Report ---
HEPATOBILIARY SCAN: History: Abnormal bile duct. Dilated common bile duct. Right upper quadrant/epigastric pain. Comparison: Right upper quadrant ultrasound dated 08/04/18. Following the injection of the radionuclide, serial scanning was obtained over the right upper quadrant. Initial imaging of the liver demonstrates a relatively normal activity pattern. Progressive concentration of the radionuclide in the bile ducts, with filling of both the gallbladder and small bowel, is identified within a normal time period. IMPRESSION: Normal biliary system. HIDA scan within normal limits.
[2018-08-06] MEDS: PROzac PO SCH (11:00)
[2018-08-06] MEDS: K-DUR PO SCH ×2 (11:00→22:19)
[2018-08-06] MEDS: ZESTRIL PO SCH (11:00)
[2018-08-06] MEDS: BABY ASPIRIN PO SCH (11:00)
[2018-08-06] MEDS: PROTONIX PO SCH (11:00)
[2018-08-06] MEDS: COREG PO SCH ×2 (11:00→22:20)
--- NOTE | 2018-08-06 12:11 | Gastroenterology Progress Note ---
Assessment and Plan 1.chronic abdominal pain 2.N/V 3.abnormal abd U/S -afebrile -WBC WNL (7.1) -plt count and INR WNL -lipase WNL -LFTs trending down-T.marilynn 1.00, AST 22, ALT 50, alk phos 182 -abd U/S showed gallbladder wall thickening and dilation of CBD (14mm) -EGD/colonoscopy in 2009 for abd pain showed moderate erosive antral gastritis and mild sigmoid diverticulosis -etiology unclear- possible GB vs SOD vs other (gastroparesis?) -no plan for scope at this time -MR/MRCP and HIDA scan pending for today -clear liquids as tolerated -continue PPI and antiemetics -continue to trend labs and supportive care -further recommendations to follow above results (ERCP vs surgery consult for [facility]Y vs other) Subjective Date of service: 08/06/18 Principal diagnosis: abdominal pain, N/v, abnormal U/s Interval history: Patient resting in bed this morning w/o acute distress. Reports feeling better today with abd pain improving and no vomiting since last night. Objective - Constitutional Vitals: Temp Pulse Resp BP Pulse Ox 97.2 F L 109 H 20 107/71 97 08/06/18 03:54 08/06/18 07:58 08/06/18 08:00 08/06/18 03:54 08/06/18 08:00 General appearance: no acute distress - Respiratory Respiratory: bilateral: diminished - Cardiovascular Rhythm: other (tachycardia) - Gastrointestinal General gastrointestinal: Present: soft, tender (slight TTP in epigastric/RUQ), non-distended, normal bowel sounds - Neurologic Neurological: alert and oriented x3 - Labs CBC & Chem 7: 08/06/18 05:51 08/06/18 05:51 Labs: Laboratory Results - last 24 hr 08/05/18 08/05/18 08/05/18 17:17 17:39 19:43 WBC RBC Hgb Hct MCV MCH MCHC RDW Plt Count Lymph % (Auto) [place] % (Auto) Eos % (Auto) Baso % (Auto) Lymph # [place] # Eos # Baso # Seg Neutrophils % Seg Neutrophils # Sodium 137 Potassium 4.1 Chloride 98.9 Carbon Dioxide 28 Anion Gap 14 BUN 21 H Creatinine 0.9 Estimated GFR > 60 BUN/Creatinine Ratio 23 Glucose 160 H POC Glucose 157 H Calcium 8.8 Magnesium 2.00 2.00 Total Bilirubin Direct Bilirubin Indirect Bilirubin AST ALT Alkaline Phosphatase Total Protein Albumin Albumin/Globulin Ratio 08/05/18 08/06/18 08/06/18 20:54 05:51 05:51 WBC 7.1 RBC 4.67 Hgb 11.9 Hct 38.2 MCV 82 MCH 26 L MCHC 31 RDW 17.9 H Plt Count 284 Lymph % (Auto) 21.2 [place] % (Auto) 6.9 Eos % (Auto) 1.4 Baso % (Auto) 1.6 Lymph # 1.5 [place] # 0.5 Eos # 0.1 Baso # 0.1 Seg Neutrophils % 68.9 Seg Neutrophils # 4.9 Sodium 137 Potassium 4.4 Chloride 97.4 L Carbon Dioxide 31 H Anion Gap 13 BUN 21 H Creatinine 0.9 Estimated GFR > 60 BUN/Creatinine Ratio 23 Glucose 143 H POC Glucose 180 H Calcium 9.1 Magnesium Total Bilirubin Direct Bilirubin Indirect Bilirubin AST ALT Alkaline Phosphatase Total Protein Albumin Albumin/Globulin Ratio 08/06/18 05:51 WBC RBC Hgb Hct MCV MCH MCHC RDW Plt Count Lymph % (Auto) [place] % (Auto) Eos % (Auto) Baso % (Auto) Lymph # [place] # Eos # Baso # Seg Neutrophils % Seg Neutrophils # Sodium Potassium Chloride Carbon Dioxide Anion Gap BUN Creatinine Estimated GFR BUN/Creatinine Ratio Glucose POC Glucose Calcium Magnesium Total Bilirubin 1.00 Direct Bilirubin 0.4 H Indirect Bilirubin 0.6 AST 22 ALT 50 Alkaline Phosphatase 182 H Total Protein 6.3 Albumin 3.3 L Albumin/Globulin Ratio 1.1
[2018-08-07] MEDS: LASIX IV SCH ×2 (06:12→17:47)
[2018-08-07] MEDS: DUONEB *Not for PRN Use IH SCH ×4 (07:50→21:27)
[2018-08-07] MEDS: HumuLIN R SUB-Q SCH ×4 (08:16→22:36)
[2018-08-07] MEDS: HumaLOG SUB-Q SCH ×4 (08:16→22:36)
--- NOTE | 2018-08-07 09:20 | Progress Note ---
Assessment and Plan Assessment and plan: Abdominal pain and nausea and vomiting - GI consulted - HIDA scan and CCK and normal - Patient is going to have MRCP - Symptomatic treatment - Follow GI recommendations Diabetes - On long-acting and sliding scale insulin History of CABG, CHF - Continue home medication History of depression - Continue fluoxetine DVT prophylaxis - On Lovenox Disposition - Possible discharge if MRCP is negative History Interval history: Patient was seen and evaluated this morning. Patient's abdominal pain, nausea and vomiting is getting better. Hospitalist Physical - Physical exam Narrative exam: Not in cardiopulmonary distress. The patient is obese. Vital signs as documented. Head exam is unremarkable. No scleral icterus . Neck is without jugular venous distension, thyromegaly, or carotid bruits. Lungs are clear to auscultation. Cardiac exam reveals regular rate and Rhythm. First and second heart sounds normal. No murmurs, rubs or gallops. Abdominal exam reveals normal bowel sounds, no masses, no organomegaly and no aortic enlargement. Extremities are nonedematous and both femoral and pedal pulses are normal. [employer]: Alert and oriented 3. No focal weakness. - Constitutional Vitals: Temp Pulse Resp BP Pulse Ox 97.6 F 90 20 100/64 95 08/07/18 04:18 08/07/18 04:18 08/07/18 04:18 08/07/18 04:18 08/07/18 04:18 General appearance: Present: mild distress Results - Labs CBC & Chem 7: 08/06/18 05:51 08/06/18 05:51 Labs: Laboratory Last Values WBC 7.1 K/mm3 (4.5-11.0) 08/06/18 05:51 RBC 4.67 M/mm3 (3.65-5.03) 08/06/18 05:51 Hgb 11.9 gm/dl (10.1-14.3) 08/06/18 05:51 Hct 38.2 % (30.3-42.9) 08/06/18 05:51 MCV 82 fl (79-97) 08/06/18 05:51 MCH 26 pg (28-32) L 08/06/18 05:51 MCHC 31 % (30-34) 08/06/18 05:51 RDW 17.9 % (13.2-15.2) H 08/06/18 05:51 Plt Count 284 K/mm3 (140-440) 08/06/18 05:51 Lymph % (Auto) 21.2 % (13.4-35.0) 08/06/18 05:51 [place] % (Auto) 6.9 % (0.0-7.3) 08/06/18 05:51 Eos % (Auto) 1.4 % (0.0-4.3) 08/06/18 05:51 Baso % (Auto) 1.6 % (0.0-1.8) 08/06/18 05:51 Lymph # 1.5 K/mm3 (1.2-5.4) 08/06/18 05:51 [place] # 0.5 K/mm3 (0.0-0.8) 08/06/18 05:51 Eos # 0.1 K/mm3 (0.0-0.4) 08/06/18 05:51 Baso # 0.1 K/mm3 (0.0-0.1) 08/06/18 05:51 Seg Neutrophils % 68.9 % (40.0-70.0) 08/06/18 05:51 Seg Neutrophils # 4.9 K/mm3 (1.8-7.7) 08/06/18 05:51 PT 14.6 Sec. (12.2-14.9) 08/04/18 23:01 INR 1.07 (0.87-1.13) 08/04/18 23:01 APTT 24.4 Sec. (24.2-36.6) 08/04/18 23:01 Sodium 137 mmol/L (137-145) 08/06/18 05:51 Potassium 4.4 mmol/L (3.6-5.0) 08/06/18 05:51 Chloride 97.4 mmol/L (98-107) L 08/06/18 05:51 Carbon Dioxide 31 mmol/L (22-30) H 08/06/18 05:51 Anion Gap 13 mmol/L 08/06/18 05:51 BUN 21 mg/dL (7-17) H 08/06/18 05:51 Creatinine 0.9 mg/dL (0.7-1.2) 08/06/18 05:51 Estimated GFR > 60 ml/min 08/06/18 05:51 BUN/Creatinine Ratio 23 % 03/26/19 05:51 Glucose 143 mg/dL (65-100) H 08/06/18 05:51 POC Glucose 118 (70-105) H 08/07/18 08:03 Calcium 9.1 mg/dL (8.4-10.2) 08/06/18 05:51 Magnesium 2.00 mg/dL (1.7-2.3) 08/05/18 19:43 Total Bilirubin 1.00 mg/dL (0.1-1.2) 08/06/18 05:51 Direct Bilirubin 0.4 mg/dL (0-0.2) H 08/06/18 05:51 Indirect Bilirubin 0.6 mg/dL 08/06/18 05:51 AST 22 units/L (5-40) 08/06/18 05:51 ALT 50 units/L (7-56) 08/06/18 05:51 Alkaline Phosphatase 182 units/L (35-129) H 08/06/18 05:51 Troponin T 0.014 ng/mL (0.00-0.029) 08/04/18 23:05 NT-Pro-B Natriuret Pep 2255 pg/mL (0-900) H 08/04/18 23:05 Total Protein 6.3 g/dL (6.3-8.2) 08/06/18 05:51 Albumin 3.3 g/dL (3.9-5) L 08/06/18 05:51 Albumin/Globulin Ratio 1.1 % 08/06/18 05:51 Lipase 55 units/L (13-60) 08/04/18 23:05 Active Medications - Current Medications Current Medications: Generic Name Dose Route Start Last Admin Trade Name Freq PRN Reason Stop Dose Admin Acetaminophen 650 mg 08/05/18 02:44 Tylenol PO Q4H PRN Pain MILD(1-3)/Fever >100.5/GRIJALVA Albuterol/Ipratropium 1 ampul 08/05/18 08:00 08/06/18 19:25 Duoneb *Not For Prn Use* IH Not Given QIDRT [facility] Aspirin 81 mg 08/05/18 10:00 08/06/18 11:00 Baby Aspirin PO 81 mg QDAY [facility] Administration Atorvastatin Calcium 40 mg 08/05/18 22:00 08/06/18 22:19 Lipitor PO 40 mg QHS [facility] Administration Carvedilol 25 mg 08/05/18 10:00 08/06/18 22:20 Coreg PO 25 mg BID [facility] Administration Fluoxetine HCl 40 mg 08/05/18 10:00 08/06/18 11:00 Prozac PO 40 mg QDAY [facility] Administration Furosemide 20 mg 08/05/18 06:00 08/07/18 06:12 Lasix IV 20 mg BID@0600,1800 [facility] Administration Insulin Glargine 20 units 08/05/18 22:00 08/06/18 22:19 Lantus SUB-Q 20 units HS [facility] Administration Insulin Human Lispro 6 unit 08/05/18 07:30 08/07/18 08:16 Humalog SUB-Q Not Given [facility] Insulin Human Regular 0 units 08/05/18 07:30 08/07/18 08:16 Humulin R SUB-Q Not Given [facility] Protocol Lisinopril 5 mg 08/05/18 10:00 08/06/18 11:00 Zestril PO 5 mg QDAY [facility] Administration Metoclopramide HCl 10 mg 08/05/18 03:47 08/05/18 09:40 Reglan IV 10 mg Q6H PRN Administration Nausea And Vomiting Ondansetron HCl 4 mg 08/05/18 02:44 08/05/18 11:52 Zofran IV 4 mg Q8H PRN Administration Nausea And Vomiting Oxycodone/Acetaminophen 1 tab 08/05/18 02:44 Percocet 5/325 PO Q6H PRN Pain, Moderate (4-6) Pantoprazole Sodium 40 mg 08/05/18 10:00 08/06/18 11:00 Protonix PO 40 mg DAILY [facility] Administration Potassium Chloride 20 meq 08/05/18 10:00 08/06/18 22:19 K-Dur PO 20 meq Q12HR [facility] Administration Sodium Chloride 10 ml 08/05/18 10:00 08/06/18 22:21 Sodium Chloride Flush Syringe 10 Ml IV 10 ml BID [facility] Administration Sodium Chloride 10 ml 08/05/18 02:44 Sodium Chloride Flush Syringe 10 Ml IV PRN PRN LINE FLUSH
--- NOTE | 2018-08-07 09:28 | Magnetic Resonance Report ---
MR ABDOMEN MRCP HISTORY: Dilated common bile duct, right upper quadrant pain. TECHNIQUE: Multiple T1 and T2-weighted images were obtained with and without fat suppression. Thick and thin MRCP images. Radial MRCP images. FINDINGS: Correlation is made with the ultrasound abdomen dated 08/04/18, CT dated 07/09/18 and HIDA scan dated 08/06/18. The MRCP images demonstrate an unremarkable pancreaticobiliary tree. The dilated common bile duct seen on recent ultrasound measuring up to 14 mm has apparently resolved. The CBD measures 4 mm on MRCP. No obvious cholelithiasis or choledocholithiasis is appreciated. The gallbladder is unremarkable. There is small perihepatic and perisplenic ascites. A small layering right pleural effusion is also identified. Heart size is borderline. Signal characteristics of the liver, pancreas, spleen, kidneys, adrenal glands and visualized bowel loops are within normal limits. No evidence for acute inflammatory changes or mass/adenopathy. There is a focal eccentric aneurysm projecting from the left lateral border of the infrarenal aorta measuring 1.1 cm in depth and 2.4 cm in length. Maximum diameter of the aorta at this level measures 3 cm. No evidence for stenosis or dissection. IMPRESSION: Unremarkable MRCP. The common bile duct measures 4 mm. Dilatation seen on recent ultrasound has resolved. There is no obvious cholelithiasis or choledocholithiasis. Recently passed stone? Small perihepatic and perisplenic ascites. Small right pleural effusion. 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 A mycotic aneurysm should be considered.
[2018-08-07] MEDS: BABY ASPIRIN PO SCH (10:20)
[2018-08-07] MEDS: K-DUR PO SCH ×2 (10:20→22:34)
[2018-08-07] MEDS: PROTONIX PO SCH (10:20)
[2018-08-07] MEDS: ZESTRIL PO SCH (10:20)
[2018-08-07] MEDS: PROzac PO SCH (10:20)
[2018-08-07] MEDS: COREG PO SCH ×2 (10:20→22:35)
[2018-08-07] MEDS: SODIUM CHLORIDE FLUSH SYRINGE 10 ML IV SCH ×2 (10:21→22:35)
--- NOTE | 2018-08-07 11:47 | Consultation ---
History of Present Illness Consult date: 08/07/18 Consult reason: other (NSVT) History of present illness: Patient is a 62 year old woman with a history of ischemic cardiomyopathy, coronary artery disease with prior coronary artery bypass surgery in 2000, followed by redo coronary bypass in 2013. A cardiac cath October 2017 reports severe grayling CAD, patent BRENDA to LAD, patent SVG to OM and occluded SVG to RCA. Patient was recommended for medical management. Her latest echocardiogram done 3 months ago revealed a decrease left ventricular systolic function, ejection fraction 15-20%. She presents to the hospital at this time with RLQ abdominal pain with nausea vomiting. There is no chest pain, no palpitations and no syncope. There is no lower extremity edema. GI evaluation is currently in process. ECG demonstrates normal sinus rhythm, left ventricular hypertrophy with mild repolarization abnormalities of LVH. A cardiac consultation was requested for Vfib/Vtach. There is no evidence of ventricular fibrillation on review of telemetry strips. However, there was evidence of NSVT on 08/05. Patient remained asymptomatic. Past History Past Medical History: CAD, diabetes, heart failure, hypertension, hyperlipidemia Past Surgical History: CABG Social history: Lives alone, smoking (quit mqny years ago) Family history: cancer (mother (unknown type)) Medications and Allergies Allergies Allergy/AdvReac Type Severity Reaction Status Date / Time morphine Allergy Unknown Verified 07/09/18 09:31 Home Medications Medication Instructions Recorded Confirmed Last Taken Type Aspirin [Aspirin BABY CHEW TAB] 81 mg PO QDAY #100 tab.chew 04/25/18 08/04/18 08/03/18 Rx AtorvaSTATin [Lipitor] 40 mg PO QHS #30 tablet 04/25/18 08/04/18 08/03/18 Rx Carvedilol [Coreg] 25 mg PO BID #60 tablet 04/25/18 08/04/18 08/03/18 Rx FLUoxetine [PROzac] 40 mg PO QDAY #30 capsule 04/25/18 08/04/18 08/03/18 Rx Furosemide [Furosemide ORAL LIQ] 40 mg PO Q12H #60 ml 04/25/18 08/04/18 08/03/18 Rx Insulin Glargine,Hum.rec.anlog 20 units SQ HS 30 Days #5 pen 04/25/18 08/04/18 08/03/18 Rx [Lantus] Ipratropium/Albuterol Sulfate 1 ampul IH QIDRT #50 ampul.neb 04/25/18 08/04/18 08/03/18 Rx [DUONEB *Not for PRN Use*] Lisinopril [Zestril TAB] 5 mg PO QDAY #30 tablet 04/25/18 08/04/18 08/03/18 Rx Lispro Insulin [Humalog] 6 unit SUB-Q ACHS #1 vial 04/25/18 08/04/18 08/03/18 Rx Pantoprazole [Protonix TAB] 40 mg PO DAILY #30 tablet 04/25/18 08/04/18 08/03/18 Rx Potassium Chloride [K-Dur] 20 meq PO Q12HR #60 tablet 04/25/18 08/04/18 08/03/18 Rx Furosemide [Lasix TAB] 40 mg PO QDAY 30 Days #30 tablet 07/09/18 08/04/18 08/03/18 Rx HYDROcodone/APAP 5-325 [Mora 1 each PO Q6HR PRN #10 tablet 07/09/18 08/04/18 08/03/18 Rx 5/325] Active Meds: Active Medications Acetaminophen (Tylenol) 650 mg PO Q4H PRN PRN Reason: Pain MILD(1-3)/Fever >100.5/GRIJALVA Albuterol/Ipratropium (Duoneb *Not For Prn Use*) 1 ampul IH QIDRT [facility] Last Admin: 08/07/18 07:50 Dose: Not Given Documented by: Aspirin (Baby Aspirin) 81 mg PO QDAY [facility] Last Admin: 08/07/18 10:20 Dose: 81 mg Documented by: Atorvastatin Calcium (Lipitor) 40 mg PO QHS [facility] Last Admin: 08/06/18 22:19 Dose: 40 mg Documented by: Carvedilol (Coreg) 25 mg PO BID [facility] Last Admin: 08/07/18 10:20 Dose: 25 mg Documented by: Enoxaparin Sodium (Lovenox) 40 mg SUB-Q QDAY@2200 [facility] Fluoxetine HCl (Prozac) 40 mg PO QDAY [facility] Last Admin: 08/07/18 10:20 Dose: 40 mg Documented by: Furosemide (Lasix) 20 mg IV BID@0600,1800 [facility] Last Admin: 08/07/18 06:12 Dose: 20 mg Documented by: Insulin Glargine (Lantus) 20 units SUB-[address] [facility] Last Admin: 08/06/18 22:19 Dose: 20 units Documented by: Insulin Human Lispro (Humalog) 6 unit SUB-Q [facility] Last Admin: 08/07/18 08:16 Dose: Not Given Documented by: Insulin Human Regular (Humulin R) 0 units SUB-Q [facility]; Protocol Last Admin: 08/07/18 08:16 Dose: Not Given Documented by: Lisinopril (Zestril) 5 mg PO QDAY [facility] Last Admin: 08/07/18 10:20 Dose: 5 mg Documented by: Metoclopramide HCl (Reglan) 10 mg IV Q6H PRN PRN Reason: Nausea And Vomiting Last Admin: 08/05/18 09:40 Dose: 10 mg Documented by: Ondansetron HCl (Zofran) 4 mg IV Q8H PRN PRN Reason: Nausea And Vomiting Last Admin: 08/05/18 11:52 Dose: 4 mg Documented by: Oxycodone/Acetaminophen (Percocet 5/325) 1 tab PO Q6H PRN PRN Reason: Pain, Moderate (4-6) Pantoprazole Sodium (Protonix) 40 mg PO DAILY [facility] Last Admin: 08/07/18 10:20 Dose: 40 mg Documented by: Potassium Chloride (K-Dur) 20 meq PO Q12HR [facility] Last Admin: 08/07/18 10:20 Dose: 20 meq Documented by: Sodium Chloride (Sodium Chloride Flush Syringe 10 Ml) 10 ml IV BID [facility] Last Admin: 08/07/18 10:21 Dose: 10 ml Documented by: Sodium Chloride (Sodium Chloride Flush Syringe 10 Ml) 10 ml IV PRN PRN PRN Reason: LINE FLUSH Physical Examination Vital Signs Temp Pulse Resp BP Pulse Ox 97.8 F 118 H 18 123/87 98 08/04/18 22:46 08/04/18 22:46 08/04/18 22:46 08/04/18 22:46 08/04/18 22:46 General appearance: no acute distress HEENT: Positive: PERRL Neck: Positive: trachea midline Cardiac: Positive: Reg Rate and Rhythm Lungs: Positive: Decreased Breath Sounds Neuro: Positive: Grossly Intact Extremities: Absent: edema Results 08/06/18 05:51 08/06/18 05:51 Assessment and Plan Abdominal pain with nausea vomiting Atypical chest pain History of chronic stable angina Coronary artery disease s/p CABG Cath 10/2017 - severe grayling vessel disease, patent BRENDA to LAD, patent SVG to OM and occluded SVG to RCA Ischemic cardiomyopathy LVEF 15-20% by echo 04/2018 Type II DM Hyperlipidemia NSVT -pt remained asymptomatic Recommend: Check a TSH Lifevest placement before discharge. Continue medical therapy for coronary artery disease, chronic stable angina and ischemic cardiomyopathy.
--- NOTE | 2018-08-07 13:24 | Gastroenterology Progress Note ---
Assessment and Plan - Patient Problems (1) Ischemic cardiomyopathy Current Visit: Yes Status: Acute Plan to address problem: - Severe disease (Cards note appreciated) that likely explains some of abnormal LFTs, and could be cause of some of abdominal pain. - Even if HIDA tomorrow floridly abnormal, the patient would be considered a very high risk candidate for surgery for cardiac complications. (2) Abdominal pain Current Visit: Yes Status: Acute Qualifiers: Abdominal location: epigastric Qualified Code(s): R10.13 - Epigastric pain Plan to address problem: - EGD/colon (-) by Dr Landaverde over last few years. Severe atherosclerosis but no evidence of mesenteric ischemia on CT or by history. US read as dilated CBD, but MRCP shows CBD is normal. - Will get repeat HIDA with CCK to assess for acalculous cholecystitis, but as noted above would be high risk for surgery. (3) Abnormal liver enzymes Current Visit: Yes Status: Acute Plan to address problem: - Elevated alk phos probably due to ischemic cardiomyopathy. - Will monitor; hepatitis serologies negative. Subjective Date of service: 08/07/18 Principal diagnosis: Abdominal Pain Interval history: The patient continues to be intolerant of food with little pain but N/V after most meals. She had a NSVT run (see Cards note) but no current CP or SOB. Objective - Constitutional Vitals: Temp Pulse Resp BP Pulse Ox 97.7 F 96 H 14 95/58 95 08/07/18 09:15 08/07/18 09:58 08/07/18 09:15 08/07/18 09:15 08/07/18 09:15 General appearance: no acute distress - Respiratory Respiratory effort: normal Respiratory: bilateral: CTA - Cardiovascular Rhythm: regular Heart Sounds: Present: S1 & S2 - Gastrointestinal General gastrointestinal: Present: soft, tender (Mild in RUQ), non-distended - Labs CBC & Chem 7: 08/06/18 05:51 08/06/18 05:51 Labs: Laboratory Results - last 24 hr 08/06/18 08/06/18 08/06/18 12:57 16:58 21:05 POC Glucose 255 H 239 H 101 08/07/18 08/07/18 08:03 11:54 POC Glucose 118 H 154 H
--- NOTE | 2018-08-07 13:30 | Progress Note ---
Assessment and Plan Assessment and plan: Abdominal pain and nausea and vomiting - GI consulted - HIDA scan and CCK and normal - Patient is going to have MRCP - Symptomatic treatment - Follow GI recommendations Diabetes - On long-acting and sliding scale insulin History of CABG, CHF - Ejection fraction 15-20%, patient has non sustained V. tach - Continue home medication - Cardiology consulted and recommend life vest History of depression - Continue fluoxetine DVT prophylaxis - On Lovenox Disposition - Possible discharge if MRCP is negative History Interval history: Patient was seen and evaluated this morning. Patient's abdominal pain, nausea and vomiting is getting better. Hospitalist Physical - Physical exam Narrative exam: Not in cardiopulmonary distress. The patient is obese. Vital signs as documented. Head exam is unremarkable. No scleral icterus . Neck is without jugular venous distension, thyromegaly, or carotid bruits. Lungs are clear to auscultation. Cardiac exam reveals regular rate and Rhythm. First and second heart sounds normal. No murmurs, rubs or gallops. Abdominal exam reveals normal bowel sounds, no masses, no organomegaly and no aortic enlargement. Extremities are nonedematous and both femoral and pedal pulses are normal. NO BAKE MOLDER: Alert and oriented 3. No focal weakness. - Constitutional Vitals: Temp Pulse Resp BP Pulse Ox 97.7 F 96 H 14 95/58 95 08/07/18 09:15 08/07/18 09:58 08/07/18 09:15 08/07/18 09:15 08/07/18 09:15 General appearance: Present: no acute distress Results - Labs CBC & Chem 7: 08/06/18 05:51 08/06/18 05:51 Labs: Laboratory Last Values WBC 7.1 K/mm3 (4.5-11.0) 08/06/18 05:51 RBC 4.67 M/mm3 (3.65-5.03) 08/06/18 05:51 Hgb 11.9 gm/dl (10.1-14.3) 08/06/18 05:51 Hct 38.2 % (30.3-42.9) 08/06/18 05:51 MCV 82 fl (79-97) 08/06/18 05:51 MCH 26 pg (28-32) L 08/06/18 05:51 MCHC 31 % (30-34) 08/06/18 05:51 RDW 17.9 % (13.2-15.2) H 08/06/18 05:51 Plt Count 284 K/mm3 (140-440) 08/06/18 05:51 Lymph % (Auto) 21.2 % (13.4-35.0) 08/06/18 05:51 [place] % (Auto) 6.9 % (0.0-7.3) 08/06/18 05:51 Eos % (Auto) 1.4 % (0.0-4.3) 08/06/18 05:51 Baso % (Auto) 1.6 % (0.0-1.8) 08/06/18 05:51 Lymph # 1.5 K/mm3 (1.2-5.4) 08/06/18 05:51 [place] # 0.5 K/mm3 (0.0-0.8) 08/06/18 05:51 Eos # 0.1 K/mm3 (0.0-0.4) 08/06/18 05:51 Baso # 0.1 K/mm3 (0.0-0.1) 08/06/18 05:51 Seg Neutrophils % 68.9 % (40.0-70.0) 08/06/18 05:51 Seg Neutrophils # 4.9 K/mm3 (1.8-7.7) 08/06/18 05:51 PT 14.6 Sec. (12.2-14.9) 08/04/18 23:01 INR 1.07 (0.87-1.13) 08/04/18 23:01 APTT 24.4 Sec. (24.2-36.6) 08/04/18 23:01 Sodium 137 mmol/L (137-145) 08/06/18 05:51 Potassium 4.4 mmol/L (3.6-5.0) 08/06/18 05:51 Chloride 97.4 mmol/L (98-107) L 08/06/18 05:51 Carbon Dioxide 31 mmol/L (22-30) H 08/06/18 05:51 Anion Gap 13 mmol/L 08/06/18 05:51 BUN 21 mg/dL (7-17) H 08/06/18 05:51 Creatinine 0.9 mg/dL (0.7-1.2) 08/06/18 05:51 Estimated GFR > 60 ml/min 08/06/18 05:51 BUN/Creatinine Ratio 23 % 08/06/18 05:51 Glucose 143 mg/dL (65-100) H 08/06/18 05:51 POC Glucose 154 (70-105) H 08/07/18 11:54 Calcium 9.1 mg/dL (8.4-10.2) 08/06/18 05:51 Magnesium 2.00 mg/dL (1.7-2.3) 08/05/18 19:43 Total Bilirubin 1.00 mg/dL (0.1-1.2) 08/06/18 05:51 Direct Bilirubin 0.4 mg/dL (0-0.2) H 08/06/18 05:51 Indirect Bilirubin 0.6 mg/dL 08/06/18 05:51 AST 22 units/L (5-40) 08/06/18 05:51 ALT 50 units/L (7-56) 08/06/18 05:51 Alkaline Phosphatase 182 units/L (35-129) H 08/06/18 05:51 Troponin T 0.014 ng/mL (0.00-0.029) 08/04/18 23:05 NT-Pro-B Natriuret Pep 2255 pg/mL (0-900) H 08/04/18 23:05 Total Protein 6.3 g/dL (6.3-8.2) 08/06/18 05:51 Albumin 3.3 g/dL (3.9-5) L 08/06/18 05:51 Albumin/Globulin Ratio 1.1 % 08/06/18 05:51 Lipase 55 units/L (13-60) 08/04/18 23:05 Active Medications - Current Medications Current Medications: Generic Name Dose Route Start Last Admin Trade Name Freq PRN Reason Stop Dose Admin Acetaminophen 650 mg 08/05/18 02:44 Tylenol PO Q4H PRN Pain MILD(1-3)/Fever >100.5/GRIJALVA Albuterol/Ipratropium 1 ampul 08/05/18 08:00 08/07/18 12:53 Duoneb *Not For Prn Use* IH Not Given QIDRT [facility] Aspirin 81 mg 08/05/18 10:00 08/07/18 10:20 Baby Aspirin PO 81 mg QDAY [facility] Administration Atorvastatin Calcium 40 mg 08/05/18 22:00 08/06/18 22:19 Lipitor PO 40 mg QHS [facility] Administration Carvedilol 25 mg 08/05/18 10:00 08/07/18 10:20 Coreg PO 25 mg BID [facility] Administration Enoxaparin Sodium 40 mg 08/07/18 22:00 Lovenox SUB-Q QDAY@2200 [facility] Fluoxetine HCl 40 mg 08/05/18 10:00 08/07/18 10:20 Prozac PO 40 mg QDAY [facility] Administration Furosemide 20 mg 08/05/18 06:00 08/07/18 06:12 Lasix IV 20 mg BID@0600,1800 [facility] Administration Insulin Glargine 20 units 08/05/18 22:00 08/06/18 22:19 Lantus SUB-Q 20 units HS [facility] Administration Insulin Human Lispro 6 unit 08/05/18 07:30 08/07/18 12:48 Humalog SUB-Q 6 unit [facility] Administration Insulin Human Regular 0 units 08/05/18 07:30 08/07/18 12:48 Humulin R SUB-Q 2 units ACHS [facility] Administration Protocol Lisinopril 5 mg 08/05/18 10:00 08/07/18 10:20 Zestril PO 5 mg QDAY [facility] Administration Metoclopramide HCl 10 mg 08/05/18 03:47 08/05/18 09:40 Reglan IV 10 mg Q6H PRN Administration Nausea And Vomiting Ondansetron HCl 4 mg 08/05/18 02:44 08/05/18 11:52 Zofran IV 4 mg Q8H PRN Administration Nausea And Vomiting Oxycodone/Acetaminophen 1 tab 08/05/18 02:44 Percocet 5/325 PO Q6H PRN Pain, Moderate (4-6) Pantoprazole Sodium 40 mg 08/05/18 10:00 08/07/18 10:20 Protonix PO 40 mg DAILY [facility] Administration Potassium Chloride 20 meq 08/05/18 10:00 08/07/18 10:20 K-Dur PO 20 meq Q12HR [facility] Administration Sodium Chloride 10 ml 08/05/18 10:00 08/07/18 10:21 Sodium Chloride Flush Syringe 10 Ml IV 10 ml BID [facility] Administration Sodium Chloride 10 ml 08/05/18 02:44 Sodium Chloride Flush Syringe 10 Ml IV PRN PRN LINE FLUSH
[2018-08-07] MEDS: LOVENOX SUB-Q SCH (22:33)
[2018-08-07] MEDS: LANTUS SUB-Q SCH (22:35)
[2018-08-08] MEDS: LASIX IV SCH ×2 (05:38→18:38)
[2018-08-08 06:18] LABS: BUN/Creatinine Ratio 28; Blood Urea Nitrogen 25 mg/dL (7-17); Calcium 8.4 mg/dL (8.4-10.2); Hemolysis Index 0
[2018-08-08] MEDS ORDERED: KINEVAC IV ONE ×2 (08:32→08:33)
[2018-08-08] MEDS ORDERED: WATER FOR INJ (PF) IV SCH (09:00)
--- NOTE | 2018-08-08 10:11 | Event Note ---
Date: 08/08/18 Patient off the floor for HIDA scan. Further recommendations to follow results.
--- NOTE | 2018-08-08 12:11 | Nuclear Medicine Report ---
HEPATOBILIARY SCAN: History: Abdominal pain, nausea and vomiting. Following the injection of the radionuclide, serial scanning was obtained over the right upper quadrant. Initial imaging of the liver demonstrates a relatively normal activity pattern. Progressive concentration of the radionuclide in the bile ducts, with filling of both the gallbladder and small bowel, is identified within a normal time period. The gallbladder ejection fraction is severely decreased measuring 8%. The patient reports abdominal pain with nausea and vomiting during the infusion of CCK. IMPRESSION: Normal biliary system. Severely decreased gallbladder ejection fraction suggesting biliary dyskinesia.
[2018-08-08] MEDS: HumaLOG SUB-Q SCH ×4 (12:19→22:25)
[2018-08-08] MEDS: HumuLIN R SUB-Q SCH ×4 (12:19→22:22)
[2018-08-08] MEDS: BABY ASPIRIN PO SCH (12:22)
[2018-08-08] MEDS: COREG PO SCH ×2 (12:22→22:21)
[2018-08-08] MEDS: PROzac PO SCH (12:23)
[2018-08-08] MEDS: ZESTRIL PO SCH (12:23)
[2018-08-08] MEDS: SODIUM CHLORIDE FLUSH SYRINGE 10 ML IV SCH ×2 (12:23→22:22)
[2018-08-08] MEDS: K-DUR PO SCH ×2 (12:30→22:21)
[2018-08-08] MEDS: PROTONIX PO SCH (12:30)
[2018-08-08] MEDS: DUONEB *Not for PRN Use IH SCH ×3 (14:00→20:22)
--- NOTE | 2018-08-08 14:12 | Gastroenterology Progress Note ---
Assessment and Plan 1.chronic abdominal pain 2.N/V 3.abnormal abd U/S 4.elevated LFTs -afebrile -WBC, H/H, plt, INR, and lipase WNL -LFTs trending down-T.marilynn 1.00, AST 22, ALT 50, alk phos 182 -EGD/colonoscopy in 2009 for abd pain showed moderate erosive antral gastritis and mild sigmoid diverticulosis -Severe atherosclerosis but no evidence of mesenteric ischemia on CT or by history -abd U/S showed gallbladder wall thickening and dilation of CBD (14mm) -MRCP unremarkable with CBD normal -etiology unclear- possible GB vs SOD vs other (gastroparesis?) -HIDA scan today with results c/w biliary dyskinesia (EF 8% and symptoms reproduced with CCK infusion) -recommend surgery consult for possible CCY, however patient is a high risk candidate given cardiac complications -full liquids as tolerated -continue PPI and antiemetics -continue to trend labs and supportive care -further management per surgery -will sign off, please call if needed 5.ischemic cardiomyopathy - Severe disease (Cards note appreciated) that likely explains some of abnormal LFTs (elevated alk phos), and could be cause of some of abdominal pain. Subjective Date of service: 08/08/18 Principal diagnosis: Abdominal Pain Interval history: Patient resting in bed this afternoon w/o acute distress. Reports continued abd pain with N/V today. Objective - Constitutional Vitals: Temp Pulse Resp BP Pulse Ox 97.4 F L 90 20 112/80 93 08/08/18 11:39 08/08/18 12:23 08/08/18 11:38 08/08/18 12:23 08/08/18 14:02 General appearance: no acute distress, other (ill appearing) - EENT Eyes: PERRL, EOM intact ENT: hearing intact - Respiratory Respiratory: bilateral: CTA (anterior) - Cardiovascular Rhythm: regular - Gastrointestinal General gastrointestinal: Present: soft, tender (slight TTP in epigastric/RUQ), non-distended, normal bowel sounds - Neurologic Neurological: alert and oriented x3 - Labs CBC & Chem 7: 08/06/18 05:51 08/08/18 05:02 Labs: Laboratory Results - last 24 hr 08/07/18 08/07/18 08/08/18 16:36 22:11 05:02 Sodium 137 Potassium 4.1 Chloride 97.5 L Carbon Dioxide 26 Anion Gap 18 BUN 25 H Creatinine 0.9 Estimated GFR > 60 BUN/Creatinine Ratio 28 Glucose 127 H POC Glucose 100 130 H Calcium 8.4 08/08/18 08/08/18 07:27 11:30 Sodium Potassium Chloride Carbon Dioxide Anion Gap BUN Creatinine Estimated GFR BUN/Creatinine Ratio Glucose POC Glucose 159 H 140 H Calcium
--- NOTE | 2018-08-08 14:46 | Progress Note ---
Assessment and Plan Assessment and plan: Abdominal pain and nausea and vomiting - GI consulted - HIDA scan with CCK showed EF of 3% - MRCP normal - General surgery consulted Diabetes - On long-acting and sliding scale insulin - Blood glucose is on target History of CABG, CHF - Ejection fraction 15-20%, patient has non sustained V. tach - Continue home medication - Cardiology consulted and recommend life vest History of depression - Continue fluoxetine DVT prophylaxis - On Lovenox Disposition - pending General surgery recommendations. History Interval history: Patient was seen and evaluated this morning. Patient's abdominal pain, nausea and vomiting. Hospitalist Physical - Physical exam Narrative exam: Not in cardiopulmonary distress. The patient is obese. Vital signs as documented. Head exam is unremarkable. No scleral icterus . Neck is without jugular venous distension, thyromegaly, or carotid bruits. Lungs are clear to auscultation. Cardiac exam reveals regular rate and Rhythm. First and second heart sounds normal. No murmurs, rubs or gallops. Abdominal exam reveals normal bowel sounds, no masses, no organomegaly and no aortic enlargement. Extremities are nonedematous and both femoral and pedal pulses are normal. WEB SITE ADMIN: Alert and oriented 3. No focal weakness. - Constitutional Vitals: Temp Pulse Resp BP Pulse Ox 97.4 F L 90 20 112/80 93 08/08/18 11:39 08/08/18 12:23 08/08/18 11:38 08/08/18 12:23 08/08/18 14:02 General appearance: Present: no acute distress Results - Labs CBC & Chem 7: 08/06/18 05:51 08/08/18 05:02 Labs: Laboratory Last Values WBC 7.1 K/mm3 (4.5-11.0) 08/06/18 05:51 RBC 4.67 M/mm3 (3.65-5.03) 08/06/18 05:51 Hgb 11.9 gm/dl (10.1-14.3) 08/06/18 05:51 Hct 38.2 % (30.3-42.9) 08/06/18 05:51 MCV 82 fl (79-97) 08/06/18 05:51 MCH 26 pg (28-32) L 08/06/18 05:51 MCHC 31 % (30-34) 08/06/18 05:51 RDW 17.9 % (13.2-15.2) H 08/06/18 05:51 Plt Count 284 K/mm3 (140-440) 08/06/18 05:51 Lymph % (Auto) 21.2 % (13.4-35.0) 08/06/18 05:51 [place] % (Auto) 6.9 % (0.0-7.3) 08/06/18 05:51 Eos % (Auto) 1.4 % (0.0-4.3) 08/06/18 05:51 Baso % (Auto) 1.6 % (0.0-1.8) 08/06/18 05:51 Lymph # 1.5 K/mm3 (1.2-5.4) 08/06/18 05:51 [place] # 0.5 K/mm3 (0.0-0.8) 08/06/18 05:51 Eos # 0.1 K/mm3 (0.0-0.4) 08/06/18 05:51 Baso # 0.1 K/mm3 (0.0-0.1) 08/06/18 05:51 Seg Neutrophils % 68.9 % (40.0-70.0) 08/06/18 05:51 Seg Neutrophils # 4.9 K/mm3 (1.8-7.7) 08/06/18 05:51 PT 14.6 Sec. (12.2-14.9) 08/04/18 23:01 INR 1.07 (0.87-1.13) 08/04/18 23:01 APTT 24.4 Sec. (24.2-36.6) 08/04/18 23:01 Sodium 137 mmol/L (137-145) 08/08/18 05:02 Potassium 4.1 mmol/L (3.6-5.0) 08/08/18 05:02 Chloride 97.5 mmol/L (98-107) L 08/08/18 05:02 Carbon Dioxide 26 mmol/L (22-30) 08/08/18 05:02 Anion Gap 18 mmol/L 08/08/18 05:02 BUN 25 mg/dL (7-17) H 08/08/18 05:02 Creatinine 0.9 mg/dL (0.7-1.2) 08/08/18 05:02 Estimated GFR > 60 ml/min 08/08/18 05:02 BUN/Creatinine Ratio 28 % 08/08/18 05:02 Glucose 127 mg/dL (65-100) H 08/08/18 05:02 POC Glucose 140 (70-105) H 08/08/18 11:30 Calcium 8.4 mg/dL (8.4-10.2) 08/08/18 05:02 Magnesium 2.00 mg/dL (1.7-2.3) 08/05/18 19:43 Total Bilirubin 1.00 mg/dL (0.1-1.2) 08/06/18 05:51 Direct Bilirubin 0.4 mg/dL (0-0.2) H 08/06/18 05:51 Indirect Bilirubin 0.6 mg/dL 08/06/18 05:51 AST 22 units/L (5-40) 08/06/18 05:51 ALT 50 units/L (7-56) 08/06/18 05:51 Alkaline Phosphatase 182 units/L (35-129) H 08/06/18 05:51 Troponin T 0.014 ng/mL (0.00-0.029) 08/04/18 23:05 NT-Pro-B Natriuret Pep 2255 pg/mL (0-900) H 08/04/18 23:05 Total Protein 6.3 g/dL (6.3-8.2) 08/06/18 05:51 Albumin 3.3 g/dL (3.9-5) L 08/06/18 05:51 Albumin/Globulin Ratio 1.1 % 08/06/18 05:51 Lipase 55 units/L (13-60) 08/04/18 23:05 Active Medications - Current Medications Current Medications: Generic Name Dose Route Start Last Admin Trade Name Freq PRN Reason Stop Dose Admin Acetaminophen 650 mg 08/05/18 02:44 Tylenol PO Q4H PRN Pain MILD(1-3)/Fever >100.5/GRIJALVA Albuterol/Ipratropium 1 ampul 08/08/18 14:30 08/08/18 14:33 Duoneb *Not For Prn Use* IH Not Given TIDRT [facility] Aspirin 81 mg 08/05/18 10:00 08/08/18 12:22 Baby Aspirin PO 81 mg QDAY [facility] Administration Atorvastatin Calcium 40 mg 08/05/18 22:00 08/07/18 22:34 Lipitor PO 40 mg QHS [facility] Administration Carvedilol 25 mg 08/05/18 10:00 08/08/18 12:22 Coreg PO 25 mg BID [facility] Administration Enoxaparin Sodium 40 mg 08/07/18 22:00 08/07/18 22:33 Lovenox SUB-Q 40 mg QDAY@2200 [facility] Administration Fluoxetine HCl 40 mg 08/05/18 10:00 08/08/18 12:23 Prozac PO 40 mg QDAY [facility] Administration Furosemide 20 mg 08/05/18 06:00 08/08/18 05:38 Lasix IV 20 mg BID@0600,1800 [facility] Administration Insulin Glargine 20 units 08/05/18 22:00 08/07/18 22:35 Lantus SUB-Q 20 units HS [facility] Administration Insulin Human Lispro 6 unit 08/05/18 07:30 08/08/18 12:30 Humalog SUB-Q 6 unit [facility] Administration Insulin Human Regular 0 units 08/05/18 07:30 08/08/18 12:21 Humulin R SUB-Q Not Given [facility] Protocol Lisinopril 5 mg 08/05/18 10:00 08/08/18 12:23 Zestril PO Not Given QDAY [facility] Metoclopramide HCl 10 mg 08/05/18 03:47 08/05/18 09:40 Reglan IV 10 mg Q6H PRN Administration Nausea And Vomiting Ondansetron HCl 4 mg 08/05/18 02:44 08/05/18 11:52 Zofran IV 4 mg Q8H PRN Administration Nausea And Vomiting Oxycodone/Acetaminophen 1 tab 08/05/18 02:44 Percocet 5/325 PO Q6H PRN Pain, Moderate (4-6) Pantoprazole Sodium 40 mg 08/05/18 10:00 08/08/18 12:30 Protonix PO 40 mg DAILY [facility] Administration Potassium Chloride 20 meq 08/05/18 10:00 08/08/18 12:30 K-Dur PO 20 meq Q12HR [facility] Administration Sodium Chloride 10 ml 08/05/18 10:00 08/08/18 12:23 Sodium Chloride Flush Syringe 10 Ml IV 10 ml BID [facility] Administration Sodium Chloride 10 ml 08/05/18 02:44 Sodium Chloride Flush Syringe 10 Ml IV PRN PRN LINE FLUSH
--- NOTE | 2018-08-08 14:49 | Progress Note ---
Assessment and Plan Abdominal pain with nausea vomiting Atypical chest pain History of chronic stable angina Coronary artery disease s/p CABG Cath 10/2017 - severe [place] vessel disease, patent BRENDA to LAD, patent SVG to OM and occluded SVG to RCA Ischemic cardiomyopathy LVEF 15-20% by echo 04/2018 Type II DM Hyperlipidemia NSVT -pt remained asymptomatic no further events all the remaining strips are all artifact; there is no evidence of Vfib or sustained VT Recommendations: Lifevest placement before discharge. Continue medical therapy for coronary artery disease, chronic stable angina and ischemic cardiomyopathy. As an outpatient, patient will follow up with her primary graphics specialist for future prophylactic ICD. Subjective Date of service: 08/08/18 Principal diagnosis: Abdominal Pain Interval history: Patient is resting in bed comfortably. No events on telemetry monitoring. Objective Vital Signs Temp Pulse Pulse Resp BP Pulse Ox 08/08/18 14:02 93 08/08/18 12:23 90 112/80 08/08/18 12:22 90 112/80 08/08/18 11:39 97.4 F L 08/08/18 11:38 90 20 112/80 93 08/08/18 10:00 93 08/08/18 07:34 97.6 F 101 H 16 127/85 98 08/08/18 04:38 97.8 F 93 H 20 116/73 96 08/08/18 00:20 98.1 F 94 H 20 103/70 93 08/07/18 22:45 84 18 97 08/07/18 22:35 84 86/60 08/07/18 20:48 97.4 F L 87 20 86/60 97 08/07/18 19:29 90 08/07/18 15:59 97.5 F L 80 16 101/66 99 - Physical Examination General: No Apparent Distress HEENT: Positive: PERRL Neck: Positive: trachea midline Cardiac: Positive: Reg Rate and Rhythm Lungs: Positive: Decreased Breath Sounds Neuro: Positive: Grossly Intact Extremities: Absent: edema - Labs and Meds Comprehensive Metabolic Panel 08/08/18 Range/Units 05:02 Sodium 137 (137-145) mmol/L Potassium 4.1 (3.6-5.0) mmol/L Chloride 97.5 L (98-107) mmol/L Carbon Dioxide 26 (22-30) mmol/L BUN 25 H (7-17) mg/dL Creatinine 0.9 (0.7-1.2) mg/dL Glucose 127 H (65-100) mg/dL Calcium 8.4 (8.4-10.2) mg/dL
[2018-08-08] MEDS: ZOFRAN IV PRN (16:31)
--- NOTE | 2018-08-08 17:11 | Consultation ---
History of Present Illness Consult date: 08/08/18 Reason for consult: abdominal pain Chief complaint: abdominal pain - History of present illness History of present illness: 62 yo F with hx of CAD, multiple heart surgeries, CHF presents to hospital with ongoing RUQ abdominal pain, n/v. The patient's daughter provided most of the history. Apparently the patient has been having constant RUQ abdominal pain for the last several months. There are no exacerbating or alleviating factors. She has associated nonbilious/nonbloody emesis. This is regardless of whether she eats or not. She is not tolerating liquids or solids. No f/c, cp, sob. In the past, the patient has been told that she may need her gallbladder removed but this was never pursued for unknown reasons. Past History Past Medical History: CAD, diabetes, heart failure, hypertension, hyperlipidemia Past Surgical History: CABG Social history: Lives alone, smoking (quit mqny years ago) Family history: cancer (mother (unknown type)) Medications and Allergies Allergies Allergy/AdvReac Type Severity Reaction Status Date / Time morphine Allergy Unknown Verified 07/09/18 09:31 Home Medications Medication Instructions Recorded Confirmed Last Taken Type Aspirin [Aspirin BABY CHEW TAB] 81 mg PO QDAY #100 tab.chew 04/25/18 08/04/18 08/03/18 Rx AtorvaSTATin [Lipitor] 40 mg PO QHS #30 tablet 04/25/18 08/04/18 08/03/18 Rx Carvedilol [Coreg] 25 mg PO BID #60 tablet 04/25/18 08/04/18 08/03/18 Rx FLUoxetine [PROzac] 40 mg PO QDAY #30 capsule 04/25/18 08/04/18 08/03/18 Rx Furosemide [Furosemide ORAL LIQ] 40 mg PO Q12H #60 ml 04/25/18 08/04/18 08/03/18 Rx Insulin Glargine,Hum.rec.anlog 20 units SQ HS 30 Days #5 pen 04/25/18 08/04/18 08/03/18 Rx [Lantus] Ipratropium/Albuterol Sulfate 1 ampul IH QIDRT #50 ampul.neb 04/25/18 08/04/18 08/03/18 Rx [DUONEB *Not for PRN Use*] Lisinopril [Zestril TAB] 5 mg PO QDAY #30 tablet 04/25/18 08/04/18 08/03/18 Rx Lispro Insulin [Humalog] 6 unit SUB-Q ACHS #1 vial 04/25/18 08/04/18 08/03/18 Rx Pantoprazole [Protonix TAB] 40 mg PO DAILY #30 tablet 04/25/18 08/04/18 08/03/18 Rx Potassium Chloride [K-Dur] 20 meq PO Q12HR #60 tablet 04/25/18 08/04/18 08/03/18 Rx Furosemide [Lasix TAB] 40 mg PO QDAY 30 Days #30 tablet 07/09/18 08/04/18 08/03/18 Rx HYDROcodone/APAP 5-325 [[place] 1 each PO Q6HR PRN #10 tablet 07/09/18 08/04/18 08/03/18 Rx 5/325] Active Meds: Active Medications Acetaminophen (Tylenol) 650 mg PO Q4H PRN PRN Reason: Pain MILD(1-3)/Fever >100.5/GRIJALVA Albuterol/Ipratropium (Duoneb *Not For Prn Use*) 1 ampul IH TIDRT [facility] Last Admin: 08/08/18 14:33 Dose: Not Given Documented by: Aspirin (Baby Aspirin) 81 mg PO QDAY [facility] Last Admin: 08/08/18 12:22 Dose: 81 mg Documented by: Atorvastatin Calcium (Lipitor) 40 mg PO QHS [facility] Last Admin: 08/07/18 22:34 Dose: 40 mg Documented by: Carvedilol (Coreg) 25 mg PO BID [facility] Last Admin: 08/08/18 12:22 Dose: 25 mg Documented by: Enoxaparin Sodium (Lovenox) 40 mg SUB-Q QDAY@2200 [facility] Last Admin: 08/07/18 22:33 Dose: 40 mg Documented by: Fluoxetine HCl (Prozac) 40 mg PO QDAY [facility] Last Admin: 08/08/18 12:23 Dose: 40 mg Documented by: Furosemide (Lasix) 20 mg IV BID@0600,1800 [facility] Last Admin: 08/08/18 05:38 Dose: 20 mg Documented by: Insulin Glargine (Lantus) 20 units SUB-Q HS [facility] Last Admin: 08/07/18 22:35 Dose: 20 units Documented by: Insulin Human Lispro (Humalog) 6 unit SUB-Q [facility] Last Admin: 08/08/18 12:30 Dose: 6 unit Documented by: Insulin Human Regular (Humulin R) 0 units SUB-Q [facility]; Protocol Last Admin: 08/08/18 12:21 Dose: Not Given Documented by: Lisinopril (Zestril) 5 mg PO QDAY [facility] Last Admin: 08/08/18 12:23 Dose: Not Given Documented by: Metoclopramide HCl (Reglan) 10 mg IV Q6H PRN PRN Reason: Nausea And Vomiting Last Admin: 08/05/18 09:40 Dose: 10 mg Documented by: Ondansetron HCl (Zofran) 4 mg IV Q8H PRN PRN Reason: Nausea And Vomiting Last Admin: 08/08/18 16:31 Dose: 4 mg Documented by: Oxycodone/Acetaminophen (Percocet 5/325) 1 tab PO Q6H PRN PRN Reason: Pain, Moderate (4-6) Pantoprazole Sodium (Protonix) 40 mg PO DAILY [facility] Last Admin: 08/08/18 12:30 Dose: 40 mg Documented by: Potassium Chloride (K-Dur) 20 meq PO Q12HR [facility] Last Admin: 08/08/18 12:30 Dose: 20 meq Documented by: Sodium Chloride (Sodium Chloride Flush Syringe 10 Ml) 10 ml IV BID [facility] Last Admin: 08/08/18 12:23 Dose: 10 ml Documented by: Sodium Chloride (Sodium Chloride Flush Syringe 10 Ml) 10 ml IV PRN PRN PRN Reason: LINE FLUSH Review of Systems All systems: negative (10 pt ROS performed and negative except for that listed in HPI) Exam Vital Signs Temp Pulse Resp BP Pulse Ox 97.8 F 118 H 18 123/87 98 08/04/18 22:46 08/04/18 22:46 08/04/18 22:46 08/04/18 22:46 08/04/18 22:46 Narrative exam: Gen: AAOx3. moderate distress due to n/v. Ill appearing ENT: no scleral icterus or conjunctival pallor CV: s1, s2+ resp: even and unlabored Abd: soft, ND, +RUQ TTP. no r/r/g Ext: no c/c/e Results - Labs 08/06/18 05:51 08/08/18 05:02 Abnormal lab results 08/07/18 08/08/18 08/08/18 Range/Units 22:11 05:02 07:27 Chloride 97.5 L (98-107) mmol/L BUN 25 H (7-17) mg/dL Glucose 127 H (65-100) mg/dL POC Glucose 130 H 159 H (70-105) 08/08/18 Range/Units 11:30 Chloride (98-107) mmol/L BUN (7-17) mg/dL Glucose (65-100) mg/dL POC Glucose 140 H (70-105) Diabetes panel 08/08/18 Range/Units 05:02 Sodium 137 (137-145) mmol/L Potassium 4.1 (3.6-5.0) mmol/L Chloride 97.5 L (98-107) mmol/L Carbon Dioxide 26 (22-30) mmol/L BUN 25 H (7-17) mg/dL Creatinine 0.9 (0.7-1.2) mg/dL Glucose 127 H (65-100) mg/dL Calcium 8.4 (8.4-10.2) mg/dL Calcium panel 08/08/18 Range/Units 05:02 Calcium 8.4 (8.4-10.2) mg/dL Pituitary panel 08/08/18 Range/Units 05:02 Sodium 137 (137-145) mmol/L Potassium 4.1 (3.6-5.0) mmol/L Chloride 97.5 L (98-107) mmol/L Carbon Dioxide 26 (22-30) mmol/L BUN 25 H (7-17) mg/dL Creatinine 0.9 (0.7-1.2) mg/dL Glucose 127 H (65-100) mg/dL Calcium 8.4 (8.4-10.2) mg/dL Adrenal panel 08/08/18 Range/Units 05:02 Sodium 137 (137-145) mmol/L Potassium 4.1 (3.6-5.0) mmol/L Chloride 97.5 L (98-107) mmol/L Carbon Dioxide 26 (22-30) mmol/L BUN 25 H (7-17) mg/dL Creatinine 0.9 (0.7-1.2) mg/dL Glucose 127 H (65-100) mg/dL Calcium 8.4 (8.4-10.2) mg/dL - Imaging US - abdomen: report reviewed, image reviewed Additional studies: HIDA scan HIDA scan with cck MRCP Assessment and Plan 62 yo F with biliary dyskinesia All imaging reviewed. Pt with Gallbladder EF of 8% and reproduction of RUQ pain with injection of CCK. No gallstones. No choledocolithiasis Plan: The patient has severe cardiac comorbidities including EF of 15-20%, hx of CABG. Per cardiology recommendations: "Lifevest placement before discharge. Continue medical therapy for coronary artery disease, chronic stable angina and ischemic cardiomyopathy. As an outpatient, patient will follow up with her primary intensive care unit registered nurse for future prophylactic ICD." Patient with persistent abdominal pain, vomiting, inability to tolerate PO - symptomatic from gallbladder disease and I recommend cholecystectomy. However, due to her cardiac status this should be performed at a facility with cardiac critical care capabilities. I recommend transfer to [facility] to the medical service with consultation to surgery. I explained this to the patient and her daughter Angelic over the telephone. They understand and are agreeable. D/W Dr. Rowell. Thank you, please call with questions
[2018-08-08] MEDS: LANTUS SUB-Q SCH (22:21)
[2018-08-08] MEDS: LOVENOX SUB-Q SCH (22:21)
[2018-08-09] MEDS: LASIX IV SCH ×2 (05:47→18:01)
[2018-08-09] MEDS: DUONEB *Not for PRN Use IH SCH ×3 (08:56→20:43)
[2018-08-09] MEDS: HumaLOG SUB-Q SCH ×4 (09:19→21:37)
[2018-08-09] MEDS: HumuLIN R SUB-Q SCH ×4 (09:19→21:40)
--- NOTE | 2018-08-09 09:51 | Event Note ---
Date: 08/09/18 Spoke with general surgeon at [facility] at the request of [facility] hospitalist who would possibly accept transfer. Discussed reason for transfer, imaging and lab results. She feels patient may have a component of chronic cholecystitis. Due to the extensive cardiac history, heart failure, and need for ICD, she recommends temporizing measures and cardiac optimization. She does not feel the patient will tolerate surgery at this time. She recommends percutaneous cholecystostomy and if symptoms do not improve to proceed with NPO, TPN. Once she has her ICD placed, she may follow up at [facility] General Surgery clinic with Dr. Palumbo or her partners for further evaluation. Phone number: [phone]. Will order IR consult for placement of perc cholecystostomy tube and coremaker experimental consult for possible TPN. D/W Dr. Rowell
--- NOTE | 2018-08-09 10:00 | Progress Note ---
Assessment and Plan Abdominal pain with nausea vomiting Atypical chest pain History of chronic stable angina Coronary artery disease s/p CABG Cath 10/2017 - severe [place] vessel disease, patent BRENDA to LAD, patent SVG to OM and occluded SVG to RCA Ischemic cardiomyopathy LVEF 15-20% by echo 04/2018 Type II DM Hyperlipidemia NSVT - pt remained asymptomatic no further events all the remaining strips are all artifact; there is no evidence of Vfib or sustained VT Recommendations: Lifevest placement before discharge. Continue medical therapy for coronary artery disease, chronic stable angina and ischemic cardiomyopathy. As an outpatient, patient will follow up with her primary costume designer for future prophylactic ICD. Subjective Date of service: 08/09/18 Principal diagnosis: Abdominal Pain Interval history: Patient has no cardiac complaints this morning No sustained arrhythmias on tele overnight Objective Vital Signs Temp Pulse Resp BP BP Pulse Ox 08/09/18 04:01 97.3 F L 72 16 106/69 96 08/08/18 23:25 97.9 F 91 H 12 114/72 97 08/08/18 22:00 96 08/08/18 19:30 98.4 F 75 16 149/93 90 08/08/18 19:27 97.5 F L 87 18 118/83 96 08/08/18 18:01 97.5 F L 08/08/18 18:00 83 18 103/74 96 08/08/18 14:02 93 08/08/18 12:23 90 112/80 08/08/18 12:22 90 112/80 08/08/18 11:39 97.4 F L 08/08/18 11:38 90 20 112/80 93 08/08/18 10:00 93 - Physical Examination General: No Apparent Distress HEENT: Positive: PERRL Neck: Positive: trachea midline Cardiac: Positive: Reg Rate and Rhythm Lungs: Positive: Normal Exam Neuro: Positive: Grossly Intact Extremities: Absent: edema
[2018-08-09] MEDS: ZESTRIL PO SCH (11:18)
[2018-08-09] MEDS: K-DUR PO SCH ×2 (11:19→21:14)
[2018-08-09] MEDS: COREG PO SCH ×2 (11:19→21:14)
[2018-08-09] MEDS: PROTONIX PO SCH (11:19)
[2018-08-09] MEDS: BABY ASPIRIN PO SCH (11:19)
[2018-08-09] MEDS: PROzac PO SCH (11:19)
[2018-08-09] MEDS: SODIUM CHLORIDE FLUSH SYRINGE 10 ML IV SCH ×2 (11:20→21:15)
--- NOTE | 2018-08-09 11:35 | Progress Note ---
Assessment and Plan Assessment and plan: Abdominal pain and nausea and vomiting - GI consulted - HIDA scan with CCK showed EF of 8% - MRCP normal - General surgery consulted and the plan was to transfer the patient to [place] [facility] was called and recommended to put percutaneous tube, TPN, ICD and will see the patient for elective cholecystectomy - Interventional radiology, nutrition consulted Diabetes - On long-acting and sliding scale insulin - Blood glucose is on target History of CABG, CHF - Ejection fraction 15-20%, patient has non sustained V. tach - Continue home medication - Cardiology consulted and recommend life vest at discharge History of depression - Continue fluoxetine DVT prophylaxis - On Lovenox Disposition -Continue inpatient care History Interval history: Patient was seen and evaluated this morning. Patient still complaining abdominal pain, nausea and vomiting. Not able to keep anything down. Patient had 4 episodes of vomiting overnight. Hospitalist Physical - Physical exam Narrative exam: Not in cardiopulmonary distress. The patient is obese. Vital signs as documented. Head exam is unremarkable. No scleral icterus . Neck is without jugular venous distension, thyromegaly, or carotid bruits. Lungs are clear to auscultation. Cardiac exam reveals regular rate and Rhythm. First and second heart sounds normal. No murmurs, rubs or gallops. Abdominal exam reveals normal bowel sounds, no masses, no organomegaly and no aortic enlargement. Extremities are nonedematous and both femoral and pedal pulses are normal. 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 No focal weakness. - Constitutional Vitals: Temp Pulse Resp BP Pulse Ox 97.7 F 89 18 120/81 98 08/09/18 10:46 08/09/18 10:46 08/09/18 10:46 08/09/18 10:46 08/09/18 10:46 General appearance: Present: no acute distress Results - Labs CBC & Chem 7: 08/06/18 05:51 08/08/18 05:02 Labs: Laboratory Last Values WBC 7.1 K/mm3 (4.5-11.0) 08/06/18 05:51 RBC 4.67 M/mm3 (3.65-5.03) 08/06/18 05:51 Hgb 11.9 gm/dl (10.1-14.3) 08/06/18 05:51 Hct 38.2 % (30.3-42.9) 08/06/18 05:51 MCV 82 fl (79-97) 08/06/18 05:51 MCH 26 pg (28-32) L 08/06/18 05:51 MCHC 31 % (30-34) 08/06/18 05:51 RDW 17.9 % (13.2-15.2) H 08/06/18 05:51 Plt Count 284 K/mm3 (140-440) 08/06/18 05:51 Lymph % (Auto) 21.2 % (13.4-35.0) 08/06/18 05:51 [place] % (Auto) 6.9 % (0.0-7.3) 08/06/18 05:51 Eos % (Auto) 1.4 % (0.0-4.3) 08/06/18 05:51 Baso % (Auto) 1.6 % (0.0-1.8) 08/06/18 05:51 Lymph # 1.5 K/mm3 (1.2-5.4) 08/06/18 05:51 [place] # 0.5 K/mm3 (0.0-0.8) 08/06/18 05:51 Eos # 0.1 K/mm3 (0.0-0.4) 08/06/18 05:51 Baso # 0.1 K/mm3 (0.0-0.1) 08/06/18 05:51 Seg Neutrophils % 68.9 % (40.0-70.0) 08/06/18 05:51 Seg Neutrophils # 4.9 K/mm3 (1.8-7.7) 08/06/18 05:51 PT 14.6 Sec. (12.2-14.9) 08/04/18 23:01 INR 1.07 (0.87-1.13) 08/04/18 23:01 APTT 24.4 Sec. (24.2-36.6) 08/04/18 23:01 Sodium 137 mmol/L (137-145) 08/08/18 05:02 Potassium 4.1 mmol/L (3.6-5.0) 08/08/18 05:02 Chloride 97.5 mmol/L (98-107) L 08/08/18 05:02 Carbon Dioxide 26 mmol/L (22-30) 08/08/18 05:02 Anion Gap 18 mmol/L 08/08/18 05:02 BUN 25 mg/dL (7-17) H 08/08/18 05:02 Creatinine 0.9 mg/dL (0.7-1.2) 08/08/18 05:02 Estimated GFR > 60 ml/min 08/08/18 05:02 BUN/Creatinine Ratio 28 % 08/08/18 05:02 Glucose 127 mg/dL (65-100) H 08/08/18 05:02 POC Glucose 220 (70-105) H 08/09/18 10:45 Calcium 8.4 mg/dL (8.4-10.2) 08/08/18 05:02 Magnesium 2.00 mg/dL (1.7-2.3) 08/05/18 19:43 Total Bilirubin 1.00 mg/dL (0.1-1.2) 08/06/18 05:51 Direct Bilirubin 0.4 mg/dL (0-0.2) H 08/06/18 05:51 Indirect Bilirubin 0.6 mg/dL 08/06/18 05:51 AST 22 units/L (5-40) 08/06/18 05:51 ALT 50 units/L (7-56) 08/06/18 05:51 Alkaline Phosphatase 182 units/L (35-129) H 08/06/18 05:51 Troponin T 0.014 ng/mL (0.00-0.029) 08/04/18 23:05 NT-Pro-B Natriuret Pep 2255 pg/mL (0-900) H 08/04/18 23:05 Total Protein 6.3 g/dL (6.3-8.2) 08/06/18 05:51 Albumin 3.3 g/dL (3.9-5) L 08/06/18 05:51 Albumin/Globulin Ratio 1.1 % 08/06/18 05:51 Lipase 55 units/L (13-60) 08/04/18 23:05 Active Medications - Current Medications Current Medications: Generic Name Dose Route Start Last Admin Trade Name Freq PRN Reason Stop Dose Admin Acetaminophen 650 mg 08/05/18 02:44 Tylenol PO Q4H PRN Pain MILD(1-3)/Fever >100.5/GRIJALVA Albuterol/Ipratropium 1 ampul 08/08/18 14:30 08/09/18 08:56 Duoneb *Not For Prn Use* IH Not Given TIDRT [facility] Aspirin 81 mg 08/05/18 10:00 08/09/18 11:19 Baby Aspirin PO 81 mg QDAY [facility] Administration Atorvastatin Calcium 40 mg 08/05/18 22:00 08/08/18 22:21 Lipitor PO 40 mg QHS [facility] Administration Carvedilol 25 mg 08/05/18 10:00 08/09/18 11:19 Coreg PO 25 mg BID [facility] Administration Enoxaparin Sodium 40 mg 08/07/18 22:00 08/08/18 22:21 Lovenox SUB-Q 40 mg QDAY@2200 [facility] Administration Fluoxetine HCl 40 mg 08/05/18 10:00 08/09/18 11:19 Prozac PO 40 mg QDAY [facility] Administration Furosemide 20 mg 08/05/18 06:00 08/09/18 05:47 Lasix IV 20 mg BID@0600,1800 [facility] Administration Insulin Glargine 20 units 08/05/18 22:00 08/08/18 22:21 Lantus SUB-Q 20 units [facility] Administration Insulin Human Lispro 6 unit 08/05/18 07:30 08/09/18 09:19 Humalog SUB-Q Not Given [facility] Insulin Human Regular 0 units 08/05/18 07:30 08/09/18 09:19 Humulin R SUB-Q Not Given [facility] Protocol Lisinopril 5 mg 08/05/18 10:00 08/09/18 11:18 Zestril PO Not Given QDAY [facility] Metoclopramide HCl 10 mg 08/05/18 03:47 08/05/18 09:40 Reglan IV 10 mg Q6H PRN Administration Nausea And Vomiting Ondansetron HCl 4 mg 08/05/18 02:44 08/08/18 16:31 Zofran IV 4 mg Q8H PRN Administration Nausea And Vomiting Oxycodone/Acetaminophen 1 tab 08/05/18 02:44 Percocet 5/325 PO Q6H PRN Pain, Moderate (4-6) Pantoprazole Sodium 40 mg 08/05/18 10:00 08/09/18 11:19 Protonix PO 40 mg DAILY [facility] Administration Potassium Chloride 20 meq 08/05/18 10:00 08/09/18 11:19 K-Dur PO 20 meq Q12HR [facility] Administration Sodium Chloride 10 ml 08/05/18 10:00 08/09/18 11:20 Sodium Chloride Flush Syringe 10 Ml IV 10 ml BID [facility] Administration Sodium Chloride 10 ml 08/05/18 02:44 Sodium Chloride Flush Syringe 10 Ml IV PRN PRN LINE FLUSH
[2018-08-09 14:07] LABS: Alanine Aminotransferase 217 units/L (7-56); BUN/Creatinine Ratio 23; Blood Urea Nitrogen 21 mg/dL (7-17); Calcium 8.3 mg/dL (8.4-10.2); Hemolysis Index 12
--- NOTE | 2018-08-09 14:08 | XRay Report ---
AP CHEST: HISTORY: Right arm PICC placement A right arm PICC has been inserted which terminates near the cavoatrial junction. Status post CABG. Moderate cardiomegaly and mild pulmonary venous congestion appears stable since 08/04/18. The lungs are adequately aerated. No evidence for infiltrate, large pleural effusion or pneumothorax. IMPRESSION: The right arm PICC terminates near the cavoatrial junction.
--- NOTE | 2018-08-09 16:44 | Consultation ---
History of Present Illness - Reason for Consult Consult date: 08/09/18 abdominal pain with biliary dyskinesia - History of Present Illness 62 yo F with hx of CAD, multiple heart surgeries, CHF presents to hospital with ongoing RUQ abdominal pain, n/v. The patient reports she has had this issue for years, which has worsened over the last few months and consists of constant RUQ abdominal pain with n/v. There are no exacerbating or alleviating factors. She has associated nonbilious/nonbloody emesis. This is regardless of whether she eats or not. She is not tolerating liquids or solids. No f/c, cp, sob. In the past, the patient has been told that she may need her gallbladder removed but this was never pursued for unknown reasons. Interventional radiology was consult today for possible cholecystostomy tube. HIDA scan demonstrates patent common bile duct and cystic duct. There is bili benito dyskinesia with a gallbladder ejection fraction of 8%. Past History Past Medical History: CAD, diabetes, heart failure, hypertension, hyperlipidemia Past Surgical History: CABG Social history: Lives alone, smoking (quit mqny years ago) Family history: cancer (mother (unknown type)) Medications and Allergies Allergies Allergy/AdvReac Type Severity Reaction Status Date / Time morphine Allergy Unknown Verified 07/09/18 09:31 Home Medications Medication Instructions Recorded Confirmed Last Taken Type Aspirin [Aspirin BABY CHEW TAB] 81 mg PO QDAY #100 tab.chew 04/25/18 08/04/18 08/03/18 Rx AtorvaSTATin [Lipitor] 40 mg PO QHS #30 tablet 04/25/18 08/04/18 08/03/18 Rx Carvedilol [Coreg] 25 mg PO BID #60 tablet 04/25/18 08/04/18 08/03/18 Rx FLUoxetine [PROzac] 40 mg PO QDAY #30 capsule 04/25/18 08/04/18 08/03/18 Rx Furosemide [Furosemide ORAL LIQ] 40 mg PO Q12H #60 ml 04/25/18 08/04/18 08/03/18 Rx Insulin Glargine,Hum.rec.anlog 20 units SQ HS 30 Days #5 pen 04/25/18 08/04/18 08/03/18 Rx [Lantus] Ipratropium/Albuterol Sulfate 1 ampul IH QIDRT #50 ampul.neb 04/25/18 08/04/18 08/03/18 Rx [DUONEB *Not for PRN Use*] Lisinopril [Zestril TAB] 5 mg PO QDAY #30 tablet 04/25/18 08/04/18 08/03/18 Rx Lispro Insulin [Humalog] 6 unit SUB-Q ACHS #1 vial 04/25/18 08/04/18 08/03/18 Rx Pantoprazole [Protonix TAB] 40 mg PO DAILY #30 tablet 04/25/18 08/04/18 08/03/18 Rx Potassium Chloride [K-Dur] 20 meq PO Q12HR #60 tablet 04/25/18 08/04/18 08/03/18 Rx Furosemide [Lasix TAB] 40 mg PO QDAY 30 Days #30 tablet 07/09/18 08/04/18 08/03/18 Rx HYDROcodone/APAP 5-325 [[place] 1 each PO Q6HR PRN #10 tablet 07/09/18 08/04/18 08/03/18 Rx 5/325] Active Meds: Active Medications Acetaminophen (Tylenol) 650 mg PO Q4H PRN PRN Reason: Pain MILD(1-3)/Fever >100.5/GRIJALVA Albuterol/Ipratropium (Duoneb *Not For Prn Use*) 1 ampul IH [facility]IDRT [facility] Last Admin: 08/09/18 15:25 Dose: Not Given Documented by: Aspirin (Baby Aspirin) 81 mg PO QDAY [facility] Last Admin: 08/09/18 11:19 Dose: 81 mg Documented by: Atorvastatin Calcium (Lipitor) 40 mg PO QHS [facility] Last Admin: 08/08/18 22:21 Dose: 40 mg Documented by: Carvedilol (Coreg) 25 mg PO BID [facility] Last Admin: 08/09/18 11:19 Dose: 25 mg Documented by: Enoxaparin Sodium (Lovenox) 40 mg SUB-Q QDAY@2200 [facility] Last Admin: 08/08/18 22:21 Dose: 40 mg Documented by: Fluoxetine HCl (Prozac) 40 mg PO QDAY [facility] Last Admin: 08/09/18 11:19 Dose: 40 mg Documented by: Furosemide (Lasix) 20 mg IV BID@0600,1800 [facility] Last Admin: 08/09/18 05:47 Dose: 20 mg Documented by: Amino Acids/Electrolytes/Dextrose (Tpn Adult) 1,800 mls @ 75 mls/hr IV DAILY@1999 [facility]; Protocol Stop: 08/10/18 19:59 Insulin Glargine (Lantus) 20 units SUB-Q [facility] Last Admin: 08/08/18 22:21 Dose: 20 units Documented by: Insulin Human Lispro (Humalog) 6 unit SUB-Q [facility] Last Admin: 08/09/18 16:10 Dose: Not Given Documented by: Insulin Human Regular (Humulin R) 0 units SUB-Q [facility]; Protocol Last Admin: 08/09/18 16:10 Dose: Not Given Documented by: Lisinopril (Zestril) 5 mg PO QDAY [facility] Last Admin: 08/09/18 11:18 Dose: Not Given Documented by: Metoclopramide HCl (Reglan) 10 mg IV Q6H PRN PRN Reason: Nausea And Vomiting Last Admin: 08/05/18 09:40 Dose: 10 mg Documented by: Ondansetron HCl (Zofran) 4 mg IV Q8H PRN PRN Reason: Nausea And Vomiting Last Admin: 08/08/18 16:31 Dose: 4 mg Documented by: Oxycodone/Acetaminophen (Percocet 5/325) 1 tab PO Q6H PRN PRN Reason: Pain, Moderate (4-6) Pantoprazole Sodium (Protonix) 40 mg PO DAILY [facility] Last Admin: 08/09/18 11:19 Dose: 40 mg Documented by: Potassium Chloride (K-Dur) 20 meq PO Q12HR [facility] Last Admin: 08/09/18 11:19 Dose: 20 meq Documented by: Sodium Chloride (Sodium Chloride Flush Syringe 10 Ml) 10 ml IV BID [facility] Last Admin: 08/09/18 11:20 Dose: 10 ml Documented by: Sodium Chloride (Sodium Chloride Flush Syringe 10 Ml) 10 ml IV PRN PRN PRN Reason: LINE FLUSH Review of Systems All systems: negative (see HPI) Exam - Constitutional Vitals: Temp Pulse Resp BP Pulse Ox 97.7 F 76 18 96/56 93 08/09/18 16:13 08/09/18 16:12 08/09/18 16:12 08/09/18 16:12 08/09/18 16:12 General appearance: Present: no acute distress - EENT Eyes: Present: EOM intact ENT: hearing intact - Respiratory Respiratory effort: normal - Abdominal General gastrointestinal: Present: tender (RUQ pain) - Psychiatric Psychiatric: appropriate mood/affect, cooperative Results - Labs CBC & Chem 7: 08/06/18 05:51 08/09/18 12:33 Labs: Abnormal lab results 08/08/18 08/08/18 08/09/18 Range/Units 17:59 20:59 10:45 Sodium (137-145) mmol/L Chloride (98-107) mmol/L BUN (7-17) mg/dL Glucose (65-100) mg/dL POC Glucose 149 H 170 H 220 H (70-105) Calcium (8.4-10.2) mg/dL AST (5-40) units/L ALT (7-56) units/L Alkaline Phosphatase (35-129) units/L Total Protein (6.3-8.2) g/dL Albumin (3.9-5) g/dL 08/09/18 08/09/18 08/09/18 Range/Units 12:33 12:33 15:59 Sodium 135 L (137-145) mmol/L Chloride 95.4 L (98-107) mmol/L BUN 21 H (7-17) mg/dL Glucose 223 H (65-100) mg/dL POC Glucose 200 H 152 H (70-105) Calcium 8.3 L (8.4-10.2) mg/dL AST 157 H (5-40) units/L ALT 217 H (7-56) units/L Alkaline Phosphatase 264 H (35-129) units/L Total Protein 5.9 L (6.3-8.2) g/dL Albumin 3.0 L (3.9-5) g/dL - Imaging and Cardiology MRI - abdomen: report reviewed, image reviewed Venous US: report reviewed, image reviewed (hida scan ) Assessment and Plan 62-year-old female with chronic right upper quadrant pain and nausea and vomiting with no evidence of acute cholecystitis. No abnormalities of the common bile duct on MRI. HIDA scan demonstrates biliary dyskinesia with normal filling of the bile duct. Patient has cardiac contraindications which are quite severe for any procedure at this time. Cholecystostomy tube placement is not indicated for biliary dyskinesia. Cholecystostomy tube placement is for acute cholecystitis which this patient does not have. Discussed with Dr. Pichardo who agrees. Dr. Pichardo wants the patient to be cardiac optimized, and afterwards see general surgery at a tertiary care center for cholecystectomy. I agree with this plan.
[2018-08-09] MEDS ORDERED: TPN ADULT 1,800 ML IV SCH (20:00)
[2018-08-09] MEDS: ZOFRAN IV PRN (20:58)
[2018-08-09] MEDS: LOVENOX SUB-Q SCH (21:13)
[2018-08-09] MEDS: LANTUS SUB-Q SCH (21:40)
[2018-08-10] MEDS: LASIX IV SCH ×2 (05:49→19:10)
[2018-08-10] MEDS: REGLAN IV PRN ×2 (05:53→14:12)
[2018-08-10] MEDS: HumaLOG SUB-Q SCH ×4 (07:39→21:22)
[2018-08-10] MEDS: HumuLIN R SUB-Q SCH ×4 (07:40→21:22)
[2018-08-10] MEDS: DUONEB *Not for PRN Use IH SCH ×3 (08:59→21:12)
[2018-08-10] MEDS: BABY ASPIRIN PO SCH (09:41)
[2018-08-10] MEDS: COREG PO SCH ×2 (09:41→21:22)
[2018-08-10] MEDS: PROzac PO SCH (09:42)
[2018-08-10] MEDS: SODIUM CHLORIDE FLUSH SYRINGE 10 ML IV SCH ×2 (09:42→21:25)
[2018-08-10] MEDS: PROTONIX PO SCH (09:42)
[2018-08-10] MEDS: K-DUR PO SCH ×2 (09:42→21:22)
[2018-08-10] MEDS: ZESTRIL PO SCH (09:42)
[2018-08-10] MEDS ORDERED: MORPHINE IV ONE (10:00)
[2018-08-10 10:26] LABS: Calcium 8.7 mg/dL (8.4-10.2)
[2018-08-10] MEDS ORDERED: DILAUDID IV ONE (11:00)
--- NOTE | 2018-08-10 12:03 | Progress Note ---
Assessment and Plan Assessment and plan: Abdominal pain and nausea and vomiting - GI consulted - HIDA scan with CCK showed EF of 8% - MRCP normal - [place] surgery was called and recommended to put percutaneous tube, TPN, ICD and will see the patient for elective cholecystectomy - PICC line was placed and patient is on TPN - still complaining abdominal pain Diabetes - On long-acting and sliding scale insulin - Blood glucose is on target History of CABG, CHF - Ejection fraction 15-20%, patient has non sustained V. tach - Continue home medication - Cardiology consulted and recommend life vest at discharge History of depression - Continue fluoxetine DVT prophylaxis - On Lovenox Disposition -Continue inpatient care -Patient need TPN arrangement as an O/P History Interval history: Patient was seen and evaluated this morning. Patient is complaining epigastric pain. Patient is on TPN but she is asking something to eat to alleviate the epigastric pain. Hospitalist Physical - Physical exam Narrative exam: Not in cardiopulmonary distress. The patient is obese. Vital signs as documented. Head exam is unremarkable. No scleral icterus . Neck is without jugular venous distension, thyromegaly, or carotid bruits. Lungs are clear to auscultation. Cardiac exam reveals regular rate and Rhythm. Abdominal exam reveals normal bowel sounds, no masses, no organomegaly and no aortic enlargement. Extremities are nonedematous and both femoral and pedal pulses are normal. [employer]: Alert and oriented 3. No focal weakness. - Constitutional Vitals: Temp Pulse Resp BP Pulse Ox 97.8 F 95 H 20 123/75 97 08/10/18 08:59 08/10/18 09:10 08/10/18 09:10 08/10/18 08:59 08/10/18 08:59 General appearance: Present: no acute distress Results - Labs CBC & Chem 7: 08/06/18 05:51 08/10/18 09:32 Labs: Laboratory Last Values WBC 7.1 K/mm3 (4.5-11.0) 08/06/18 05:51 RBC 4.67 M/mm3 (3.65-5.03) 08/06/18 05:51 Hgb 11.9 gm/dl (10.1-14.3) 08/06/18 05:51 Hct 38.2 % (30.3-42.9) 08/06/18 05:51 MCV 82 fl (79-97) 08/06/18 05:51 MCH 26 pg (28-32) L 08/06/18 05:51 MCHC 31 % (30-34) 08/06/18 05:51 RDW 17.9 % (13.2-15.2) H 08/06/18 05:51 Plt Count 284 K/mm3 (140-440) 08/06/18 05:51 Lymph % (Auto) 21.2 % (13.4-35.0) 08/06/18 05:51 Ocean % (Auto) 6.9 % (0.0-7.3) 08/06/18 05:51 Eos % (Auto) 1.4 % (0.0-4.3) 08/06/18 05:51 Baso % (Auto) 1.6 % (0.0-1.8) 08/06/18 05:51 Lymph # 1.5 K/mm3 (1.2-5.4) 08/06/18 05:51 Ocean # 0.5 K/mm3 (0.0-0.8) 08/06/18 05:51 Eos # 0.1 K/mm3 (0.0-0.4) 08/06/18 05:51 Baso # 0.1 K/mm3 (0.0-0.1) 08/06/18 05:51 Seg Neutrophils % 68.9 % (40.0-70.0) 08/06/18 05:51 Seg Neutrophils # 4.9 K/mm3 (1.8-7.7) 08/06/18 05:51 PT 14.6 Sec. (12.2-14.9) 08/04/18 23:01 INR 1.07 (0.87-1.13) 08/04/18 23:01 APTT 24.4 Sec. (24.2-36.6) 08/04/18 23:01 Sodium 134 mmol/L (137-145) L 08/10/18 09:32 Potassium 4.3 mmol/L (3.6-5.0) 08/10/18 09:32 Chloride 93.9 mmol/L (98-107) L 08/10/18 09:32 Carbon Dioxide 27 mmol/L (22-30) 08/10/18 09:32 Anion Gap 17 mmol/L 08/10/18 09:32 BUN 22 mg/dL (7-17) H 08/10/18 09:32 Creatinine 1.0 mg/dL (0.7-1.2) 08/10/18 09:32 Estimated GFR 56 ml/min 08/10/18 09:32 BUN/Creatinine Ratio 22 % 08/10/18 09:32 Glucose 267 mg/dL (65-100) H 08/10/18 09:32 POC Glucose 178 (70-105) H 08/10/18 07:49 Calcium 8.7 mg/dL (8.4-10.2) 08/10/18 09:32 Phosphorus 3.30 mg/dL (2.5-4.5) 08/10/18 09:32 Magnesium 2.10 mg/dL (1.7-2.3) 08/10/18 09:32 Total Bilirubin 1.00 mg/dL (0.1-1.2) 08/09/18 12:33 Direct Bilirubin 0.4 mg/dL (0-0.2) H 08/06/18 05:51 Indirect Bilirubin 0.6 mg/dL 08/06/18 05:51 AST 157 units/L (5-40) H 08/09/18 12:33 ALT 217 units/L (7-56) H 08/09/18 12:33 Alkaline Phosphatase 264 units/L (35-129) H 08/09/18 12:33 Troponin T < 0.010 ng/mL (0.00-0.029) 08/10/18 09:18 NT-Pro-B Natriuret Pep 2255 pg/mL (0-900) H 08/04/18 23:05 Total Protein 5.9 g/dL (6.3-8.2) L 08/09/18 12:33 Albumin 3.0 g/dL (3.9-5) L 08/09/18 12:33 Albumin/Globulin Ratio 1.0 % 08/09/18 12:33 Lipase 55 units/L (13-60) 08/04/18 23:05 Active Medications - Current Medications Current Medications: Generic Name Dose Route Start Last Admin Trade Name Freq PRN Reason Stop Dose Admin Acetaminophen 650 mg 08/05/18 02:44 Tylenol PO Q4H PRN Pain MILD(1-3)/Fever >100.5/GRIJALVA Albuterol/Ipratropium 1 ampul 08/08/18 14:30 08/10/18 08:59 Duoneb *Not For Prn Use* IH 1 ampul TIDRT [facility] Administration Aspirin 81 mg 08/05/18 10:00 08/10/18 09:41 Baby Aspirin PO Not Given QDAY [facility] Atorvastatin Calcium 40 mg 08/05/18 22:00 08/09/18 21:14 Lipitor PO Not Given QHS [facility] Carvedilol 25 mg 08/05/18 10:00 08/10/18 09:41 Coreg PO Not Given BID [facility] Enoxaparin Sodium 40 mg 08/07/18 22:00 08/09/18 21:13 Lovenox SUB-Q 40 mg QDAY@2200 [facility] Administration Fluoxetine HCl 40 mg 08/05/18 10:00 08/10/18 09:42 Prozac PO Not Given QDAY [facility] Furosemide 20 mg 08/05/18 06:00 08/10/18 05:49 Lasix IV 20 mg BID@0600,1800 [facility] Administration Amino Acids/Electrolytes/Dextrose 1,800 mls @ 75 mls/hr 08/09/18 20:00 08/09/18 20:27 Tpn Adult IV 08/10/18 19:59 75 mls/hr DAILY@2000 [facility] Administration Protocol Insulin Glargine 20 units 08/05/18 22:00 08/09/18 21:40 Lantus SUB-Q 20 units HS [facility] Administration Insulin Human Lispro 6 unit 08/05/18 07:30 08/10/18 07:39 Humalog SUB-Q Not Given [facility] Insulin Human Regular 0 units 08/05/18 07:30 08/10/18 07:40 Humulin R SUB-Q [facility] Protocol Lisinopril 5 mg 08/05/18 10:00 08/10/18 09:42 Zestril PO Not Given QDAY [facility] Metoclopramide HCl 10 mg 08/05/18 03:47 08/10/18 05:53 Reglan IV 10 mg Q6H PRN Administration Nausea And Vomiting Ondansetron HCl 4 mg 08/05/18 02:44 08/09/18 20:58 Zofran IV 4 mg Q8H PRN Administration Nausea And Vomiting Oxycodone/Acetaminophen 1 tab 08/05/18 02:44 Percocet 5/325 PO Q6H PRN Pain, Moderate (4-6) Pantoprazole Sodium 40 mg 08/05/18 10:00 08/10/18 09:42 Protonix PO Not Given DAILY [facility] Potassium Chloride 20 meq 08/05/18 10:00 08/10/18 09:42 K-Dur PO Not Given Q12HR [facility] Sodium Chloride 10 ml 08/05/18 10:00 08/10/18 09:42 Sodium Chloride Flush Syringe 10 Ml IV Not Given BID [facility] Sodium Chloride 10 ml 08/05/18 02:44 Sodium Chloride Flush Syringe 10 Ml IV PRN PRN LINE FLUSH Nutrition/Malnutrition Assess - Dietary Evaluation Nutrition/Malnutrition Findings: Nutrition Notes Start: 08/09/18 11:17 Freq: Status: Active Protocol: Document 08/09/18 12:41 CT (Rec: 08/09/18 12:48 CT [id number]) Co-Sign 08/09/18 12:41 LP Nutrition Notes Need for Assessment generated from: MD Order Current Diagnosis Coronary Artery Disease, Diabetes,Hypertension,Heart Failure,Hyperlipidemia Other Pertinent Diagnosis cholecystitis, cardiomyopathy Current Diet NPO Labs/Tests Reviewed. Pertinent Medications Lasix Insulin Reglan Zofran Height 5 ft 5 in Weight 79.6 kg [place] Body Weight (kg) 56.81 BMI 29.2 Subjective/Other Information RD consulted for TPN/PPN management. Pt reported a hx of reccurent gallbladder issues that resulted in hospitalization over the last several years. Pt stated she has experienced frequent n/v and abdominal pain for the past month and has been unable to eat without vomiting during that time. No reported wt. loss. Per MD pt. will have cholecystectomy following stabilization of heart conditions. Burn Absent Trauma Absent GI Symptoms Nausea,Vomiting Current % PO Negligible #1 Nutrition Diagnosis Inadequate oral intake Etiology cholecystitis As Evidenced by Signs and Symptoms abdominal pain, nausea and vomiting Is patient on ventilator? No Is Patient Ambulatory and/or Out of Bed Yes REE-([facility]-amb[facility]/OOB) [ [id number] [id number]] Calculation Used for Recommendations [facility] Additional Notes PRO: 80 - 96g PRO/d (1.0 -1.2g /kg) fluid: < 2.0L Nutrition Intervention Change Diet Order: PPN at 75mL/hr Nutrition Support: PPN: 75 mL/hr 3.3% AA, 5.6 % dextrose 150mEq Na, 60mEq K, 16mEq Mg, 10mEq Ca, 16mmol P Kcal 580 Protein (gm) 60 Carbohydrates (gm) 100 Fat (gm) 0 Fluid (mL) 1,800 Fiber (gm) 0 Goal #1 Meet needs as best as possible via PPN. Anticipated Discharge Needs: unable to determine at this time. Follow-Up By: 08/10/18 Additional Comments Labs in a.m. CMP, Mg, Phos
--- NOTE | 2018-08-10 13:01 | Progress Note ---
Assessment and Plan - Patient Problems (1) Abdominal pain Current Visit: Yes Status: Acute Qualifiers: Abdominal location: epigastric Qualified Code(s): R10.13 - Epigastric pain Plan to address problem: Patient very nauseated this morning. Having multiple episodes of heaving and some clear emesis. Will order scheduled Phenergan [place]. Ultimate plan is for patient to see general surgery at [place] for elective cholecystectomy. Time=10min Subjective Date of service: 08/10/18 Patient Reports: Positive: nausea, vomiting Objective Vital Signs - 12hr 08/10/18 08/10/18 08/10/18 03:17 08:59 09:10 Temperature 97.7 F 97.8 F Pulse Rate 79 92 H Pulse Rate [ 92 H 95 H Anterior Bilateral Throughout] Respiratory 16 16 Rate Respiratory 20 20 Rate [Anterior Bilateral Throughout] Blood Pressure 109/77 Blood Pressure 123/75 [Right] O2 Sat by Pulse 94 97 Oximetry 08/10/18 12:20 Temperature Pulse Rate Pulse Rate [ Anterior Bilateral Throughout] Respiratory 20 Rate Respiratory Rate [Anterior Bilateral Throughout] Blood Pressure Blood Pressure [Right] O2 Sat by Pulse Oximetry - General physical appearance moderate distress, other (sitting on edge of bed heaving) - Respiratory normal expansion, normal respiratory effort - Abdomen soft - Integumentary no rash, no growths, no abnormal pigmentation - Labs 08/06/18 05:51 08/10/18 09:32 Diabetes panel 08/09/18 08/10/18 Range/Units 12:33 09:32 Sodium 135 L 134 L (137-145) mmol/L Potassium 3.8 4.3 (3.6-5.0) mmol/L Chloride 95.4 L 93.9 L (98-107) mmol/L Carbon Dioxide 27 27 (22-30) mmol/L BUN 21 H 22 H (7-17) mg/dL Creatinine 0.9 1.0 (0.7-1.2) mg/dL Glucose 223 H 267 H (65-100) mg/dL Calcium 8.3 L 8.7 (8.4-10.2) mg/dL AST 157 H (5-40) units/L ALT 217 H (7-56) units/L Alkaline Phosphatase 264 H (35-129) units/L Total Protein 5.9 L (6.3-8.2) g/dL Albumin 3.0 L (3.9-5) g/dL Calcium panel 08/09/18 08/10/18 Range/Units 12:33 09:32 Calcium 8.3 L 8.7 (8.4-10.2) mg/dL Phosphorus 3.10 3.30 (2.5-4.5) mg/dL Albumin 3.0 L (3.9-5) g/dL Pituitary panel 08/09/18 08/10/18 Range/Units 12:33 09:32 Sodium 135 L 134 L (137-145) mmol/L Potassium 3.8 4.3 (3.6-5.0) mmol/L Chloride 95.4 L 93.9 L (98-107) mmol/L Carbon Dioxide 27 27 (22-30) mmol/L BUN 21 H 22 H (7-17) mg/dL Creatinine 0.9 1.0 (0.7-1.2) mg/dL Glucose 223 H 267 H (65-100) mg/dL Calcium 8.3 L 8.7 (8.4-10.2) mg/dL Adrenal panel 08/09/18 08/10/18 Range/Units 12:33 09:32 Sodium 135 L 134 L (137-145) mmol/L Potassium 3.8 4.3 (3.6-5.0) mmol/L Chloride 95.4 L 93.9 L (98-107) mmol/L Carbon Dioxide 27 27 (22-30) mmol/L BUN 21 H 22 H (7-17) mg/dL Creatinine 0.9 1.0 (0.7-1.2) mg/dL Glucose 223 H 267 H (65-100) mg/dL Calcium 8.3 L 8.7 (8.4-10.2) mg/dL Total Bilirubin 1.00 (0.1-1.2) mg/dL AST 157 H (5-40) units/L ALT 217 H (7-56) units/L Alkaline Phosphatase 264 H (35-129) units/L Total Protein 5.9 L (6.3-8.2) g/dL Albumin 3.0 L (3.9-5) g/dL
--- NOTE | 2018-08-10 13:25 | Progress Note ---
Assessment and Plan - Patient Problems (1) Dilated cardiomyopathy Current Visit: Yes Status: Acute Plan to address problem: Medical therapy for dilated cardiomyopathy and chronic systolic heart failure. LifeVest is fitted for the finding of asymptomatic burst of nonsustained ventricular tachycardia. Patient is stable for cardiac discharge after LifeVest fitting. Subjective Date of service: 08/10/18 Principal diagnosis: Abdominal Pain Interval history: Patient is comfortable, in no acute distress, the [employer] LifeVest is to be fitted today. Objective Vital Signs Temp Pulse Pulse Resp Resp BP BP 08/10/18 12:20 20 08/10/18 09:10 95 H 20 08/10/18 08:59 97.8 F 92 H 92 H 16 20 123/75 08/10/18 03:17 97.7 F 79 16 109/77 08/09/18 23:47 98.0 F 87 15 121/84 08/09/18 20:00 69 08/09/18 19:58 83 08/09/18 19:23 97.4 F L 12 115/72 08/09/18 16:13 97.7 F 08/09/18 16:12 76 18 96/56 Pulse Ox 08/10/18 12:20 08/10/18 09:10 08/10/18 08:59 97 08/10/18 03:17 94 08/09/18 23:47 98 08/09/18 20:00 92 08/09/18 19:58 08/09/18 19:23 78 L 08/09/18 16:13 08/09/18 16:12 93 - Physical Examination General: No Apparent Distress HEENT: Positive: PERRL Neck: Positive: trachea midline Cardiac: Positive: Reg Rate and Rhythm Lungs: Positive: Decreased Breath Sounds Neuro: Positive: Grossly Intact Abdomen: Positive: Soft Skin: Positive: Clear Extremities: Absent: edema - Labs and Meds Cardiac Enzymes 08/09/18 Range/Units 12:33 AST 157 H (5-40) units/L Comprehensive Metabolic Panel 08/09/18 08/10/18 Range/Units 12:33 09:32 Sodium 135 L 134 L (137-145) mmol/L Potassium 3.8 4.3 (3.6-5.0) mmol/L Chloride 95.4 L 93.9 L (98-107) mmol/L Carbon Dioxide 27 27 (22-30) mmol/L BUN 21 H 22 H (7-17) mg/dL Creatinine 0.9 1.0 (0.7-1.2) mg/dL Glucose 223 H 267 H (65-100) mg/dL Calcium 8.3 L 8.7 (8.4-10.2) mg/dL AST 157 H (5-40) units/L ALT 217 H (7-56) units/L Alkaline Phosphatase 264 H (35-129) units/L Total Protein 5.9 L (6.3-8.2) g/dL Albumin 3.0 L (3.9-5) g/dL
[2018-08-10] MEDS: PHENERGAN PR SCH ×2 (15:10→21:27)
[2018-08-10] MEDS ORDERED: TPN ADULT 1,800 ML IV SCH (20:00)
[2018-08-10] MEDS: LOVENOX SUB-Q SCH (21:22)
[2018-08-10] MEDS: LANTUS SUB-Q SCH (21:23)
[2018-08-11] MEDS: PHENERGAN PR SCH ×5 (02:58→18:52)
[2018-08-11] MEDS: LASIX IV SCH ×2 (05:51→18:35)
[2018-08-11 08:05] LABS: BUN/Creatinine Ratio 30; Blood Urea Nitrogen 21 mg/dL (7-17); Calcium 8.3 mg/dL (8.4-10.2); Hemolysis Index 14
[2018-08-11] MEDS: HumuLIN R SUB-Q SCH ×4 (08:06→22:31)
[2018-08-11] MEDS: HumaLOG SUB-Q SCH ×4 (08:07→22:30)
[2018-08-11] MEDS: DUONEB *Not for PRN Use IH SCH (08:40)
[2018-08-11] MEDS: PROTONIX PO SCH (10:14)
[2018-08-11] MEDS: PROzac PO SCH (10:14)
[2018-08-11] MEDS: K-DUR PO SCH ×2 (10:14→22:27)
[2018-08-11] MEDS: BABY ASPIRIN PO SCH (10:14)
[2018-08-11] MEDS: COREG PO SCH ×2 (10:14→22:29)
[2018-08-11] MEDS: SODIUM CHLORIDE FLUSH SYRINGE 10 ML IV SCH ×2 (10:15→22:27)
[2018-08-11] MEDS: ZESTRIL PO SCH (10:15)
--- NOTE | 2018-08-11 12:03 | Progress Note ---
Assessment and Plan - Patient Problems (1) Abdominal pain Current Visit: Yes Status: Acute Qualifiers: Abdominal location: epigastric Qualified Code(s): R10.13 - Epigastric pain Plan to address problem: Patient much improved today. She reports the Phenergan has helped significantly. She is not feeling sleepy as a result of the medicine. Nausea has resolved. She would like to continue with the CO Phenergan. Will try a clear liquid diet today. 1) Please continue CO phenergan and send patient home with CO script. 2) Advance diet as tolerated. Clears today 3) May d/c when nausea/vomiting confirmed to be under control Please call with questions. Time=10min Subjective Date of service: 08/11/18 Patient Reports: Positive: feels better (after the phenergan was started. Would like to drink something), pain is less. Negative: nausea, vomiting Objective Vital Signs - 12hr 08/11/18 08/11/18 08/11/18 01:16 04:51 09:50 Temperature 98.2 F 97.4 F L 97.7 F Pulse Rate 76 75 71 Respiratory 20 20 16 Rate Blood Pressure 104/76 117/69 Blood Pressure 92/58 [Left] O2 Sat by Pulse 98 73 L 94 Oximetry 08/11/18 08/11/18 10:14 10:15 Temperature Pulse Rate 71 71 Respiratory Rate Blood Pressure 92/58 92/58 Blood Pressure [Left] O2 Sat by Pulse Oximetry - General physical appearance no distress, no pain, other (looks much better) - Respiratory normal expansion, normal respiratory effort - Abdomen soft, not tender, not distended, not guarding, not rigid - Psychiatric speech is normal - Labs 08/06/18 05:51 08/11/18 07:23 Diabetes panel 08/11/18 Range/Units 07:23 Sodium 138 (137-145) mmol/L Potassium 3.5 L (3.6-5.0) mmol/L Chloride 95.2 L (98-107) mmol/L Carbon Dioxide 32 H (22-30) mmol/L BUN 21 H (7-17) mg/dL Creatinine 0.7 (0.7-1.2) mg/dL Glucose 192 H (65-100) mg/dL Calcium 8.3 L (8.4-10.2) mg/dL Calcium panel 08/11/18 Range/Units 07:23 Calcium 8.3 L (8.4-10.2) mg/dL Phosphorus 2.70 (2.5-4.5) mg/dL Pituitary panel 08/11/18 Range/Units 07:23 Sodium 138 (137-145) mmol/L Potassium 3.5 L (3.6-5.0) mmol/L Chloride 95.2 L (98-107) mmol/L Carbon Dioxide 32 H (22-30) mmol/L BUN 21 H (7-17) mg/dL Creatinine 0.7 (0.7-1.2) mg/dL Glucose 192 H (65-100) mg/dL Calcium 8.3 L (8.4-10.2) mg/dL Adrenal panel 08/11/18 Range/Units 07:23 Sodium 138 (137-145) mmol/L Potassium 3.5 L (3.6-5.0) mmol/L Chloride 95.2 L (98-107) mmol/L Carbon Dioxide 32 H (22-30) mmol/L BUN 21 H (7-17) mg/dL Creatinine 0.7 (0.7-1.2) mg/dL Glucose 192 H (65-100) mg/dL Calcium 8.3 L (8.4-10.2) mg/dL
--- NOTE | 2018-08-11 12:05 | Progress Note ---
Assessment and Plan Assessment and plan: Abdominal pain and nausea and vomiting - GI consulted - HIDA scan with CCK showed EF of 8% - MRCP normal - [facility] was called and recommended to put percutaneous tube, TPN, ICD and will see the patient for elective cholecystectomy - PICC line was placed and patient is on TPN - abdominal pain is controlled Diabetes - On long-acting and sliding scale insulin - Blood glucose is on target History of CABG, CHF - Ejection fraction 15-20%, patient has non sustained V. tach - Continue home medication - Cardiology consulted and recommend life vest at discharge History of depression - Continue fluoxetine DVT prophylaxis - On Lovenox Disposition -Continue inpatient care -Patient need TPN arrangement as an O/P -Chest management consult for TPN and life vest History Interval history: Patient was seen and evaluated this morning. Patient sleeping well over night. No pain. Hospitalist Physical - Physical exam Narrative exam: Not in cardiopulmonary distress. The patient is obese. Vital signs as documented. Head exam is unremarkable. No scleral icterus . Neck is without jugular venous distension, thyromegaly, or carotid bruits. Lungs are clear to auscultation. Cardiac exam reveals regular rate and Rhythm. Abdominal exam reveals normal bowel sounds, no masses, no organomegaly and no aortic enlargement. Extremities are nonedematous and both femoral and pedal pulses are normal. SWATCHER: Alert and oriented 3. No focal weakness. - Constitutional Vitals: Temp Pulse Resp BP Pulse Ox 97.7 F 71 16 92/58 94 08/11/18 09:50 08/11/18 10:15 08/11/18 09:50 08/11/18 10:15 08/11/18 09:50 General appearance: Present: no acute distress Results - Labs CBC & Chem 7: 08/06/18 05:51 08/11/18 07:23 Labs: Laboratory Last Values WBC 7.1 K/mm3 (4.5-11.0) 08/06/18 05:51 RBC 4.67 M/mm3 (3.65-5.03) 08/06/18 05:51 Hgb 11.9 gm/dl (10.1-14.3) 08/06/18 05:51 Hct 38.2 % (30.3-42.9) 08/06/18 05:51 MCV 82 fl (79-97) 08/06/18 05:51 MCH 26 pg (28-32) L 08/06/18 05:51 MCHC 31 % (30-34) 08/06/18 05:51 RDW 17.9 % (13.2-15.2) H 08/06/18 05:51 Plt Count 284 K/mm3 (140-440) 08/06/18 05:51 Lymph % (Auto) 21.2 % (13.4-35.0) 08/06/18 05:51 [place] % (Auto) 6.9 % (0.0-7.3) 08/06/18 05:51 Eos % (Auto) 1.4 % (0.0-4.3) 08/06/18 05:51 Baso % (Auto) 1.6 % (0.0-1.8) 08/06/18 05:51 Lymph # 1.5 K/mm3 (1.2-5.4) 08/06/18 05:51 [place] # 0.5 K/mm3 (0.0-0.8) 08/06/18 05:51 Eos # 0.1 K/mm3 (0.0-0.4) 08/06/18 05:51 Baso # 0.1 K/mm3 (0.0-0.1) 08/06/18 05:51 Seg Neutrophils % 68.9 % (40.0-70.0) 08/06/18 05:51 Seg Neutrophils # 4.9 K/mm3 (1.8-7.7) 08/06/18 05:51 PT 14.6 Sec. (12.2-14.9) 08/04/18 23:01 INR 1.07 (0.87-1.13) 08/04/18 23:01 APTT 24.4 Sec. (24.2-36.6) 08/04/18 23:01 Sodium 138 mmol/L (137-145) 08/11/18 07:23 Potassium 3.5 mmol/L (3.6-5.0) L 08/11/18 07:23 Chloride 95.2 mmol/L (98-107) L 08/11/18 07:23 Carbon Dioxide 32 mmol/L (22-30) H 08/11/18 07:23 Anion Gap 14 mmol/L 08/11/18 07:23 BUN 21 mg/dL (7-17) H 08/11/18 07:23 Creatinine 0.7 mg/dL (0.7-1.2) 08/11/18 07:23 Estimated GFR > 60 ml/min 08/11/18 07:23 BUN/Creatinine Ratio 30 % 08/11/18 07:23 Glucose 192 mg/dL (65-100) H 08/11/18 07:23 POC Glucose 173 (70-105) H 08/11/18 07:39 Calcium 8.3 mg/dL (8.4-10.2) L 08/11/18 07:23 Phosphorus 2.70 mg/dL (2.5-4.5) 08/11/18 07:23 Magnesium 2.00 mg/dL (1.7-2.3) 08/11/18 07:23 Total Bilirubin 1.00 mg/dL (0.1-1.2) 08/09/18 12:33 Direct Bilirubin 0.4 mg/dL (0-0.2) H 08/06/18 05:51 Indirect Bilirubin 0.6 mg/dL 08/06/18 05:51 AST 157 units/L (5-40) H 08/09/18 12:33 ALT 217 units/L (7-56) H 08/09/18 12:33 Alkaline Phosphatase 264 units/L (35-129) H 08/09/18 12:33 Troponin T < 0.010 ng/mL (0.00-0.029) 08/10/18 09:18 NT-Pro-B Natriuret Pep 2255 pg/mL (0-900) H 08/04/18 23:05 Total Protein 5.9 g/dL (6.3-8.2) L 08/09/18 12:33 Albumin 3.0 g/dL (3.9-5) L 08/09/18 12:33 Albumin/Globulin Ratio 1.0 % 08/09/18 12:33 Lipase 55 units/L (13-60) 08/04/18 23:05 Active Medications - Current Medications Current Medications: Generic Name Dose Route Start Last Admin Trade Name Freq PRN Reason Stop Dose Admin Acetaminophen 650 mg 08/05/18 02:44 Tylenol PO Q4H PRN Pain MILD(1-3)/Fever >100.5/GRIJALVA Albuterol/Ipratropium 1 ampul 08/08/18 14:30 08/11/18 08:40 Duoneb *Not For Prn Use* IH Not Given TIDRT [facility] Aspirin 81 mg 08/05/18 10:00 08/11/18 10:14 Baby Aspirin PO 81 mg QDAY [facility] Administration Atorvastatin Calcium 40 mg 08/05/18 22:00 08/10/18 21:22 Lipitor PO 40 mg QHS [facility] Administration Carvedilol 25 mg 08/05/18 10:00 08/11/18 10:14 Coreg PO Not Given BID [facility] Enoxaparin Sodium 40 mg 08/07/18 22:00 08/10/18 21:22 Lovenox SUB-Q 40 mg QDAY@2200 [facility] Administration Fluoxetine HCl 40 mg 08/05/18 10:00 08/11/18 10:14 Prozac PO 40 mg QDAY [facility] Administration Furosemide 20 mg 08/05/18 06:00 08/11/18 05:51 Lasix IV 20 mg BID@0600,1800 [facility] Administration Amino Acids/Electrolytes/Dextrose 1,800 mls @ 75 mls/hr 08/10/18 20:00 08/10/18 20:26 Tpn Adult IV 08/11/18 19:59 75 mls/hr DAILY@2000 [facility] Administration Protocol Insulin Glargine 20 units 08/05/18 22:00 08/10/18 21:23 Lantus SUB-Q 20 units HS [facility] Administration Insulin Human Lispro 6 unit 08/05/18 07:30 08/11/18 08:07 Humalog SUB-Q Not Given [facility] Insulin Human Regular 0 units 08/05/18 07:30 08/11/18 08:06 Humulin R SUB-Q 2 units [facility] Administration Protocol Lisinopril 5 mg 08/05/18 10:00 08/11/18 10:15 Zestril PO Not Given QDAY [facility] Metoclopramide HCl 10 mg 08/05/18 03:47 08/10/18 14:12 Reglan IV 10 mg Q6H PRN Administration Nausea And Vomiting Ondansetron HCl 4 mg 08/05/18 02:44 08/09/18 20:58 Zofran IV 4 mg Q8H PRN Administration Nausea And Vomiting Oxycodone/Acetaminophen 1 tab 08/05/18 02:44 Percocet 5/325 PO Q6H PRN Pain, Moderate (4-6) Pantoprazole Sodium 40 mg 08/05/18 10:00 08/11/18 10:14 Protonix PO 40 mg DAILY [facility] Administration Potassium Chloride 20 meq 08/05/18 10:00 08/11/18 10:14 K-Dur PO 20 meq Q12HR [facility] Administration Promethazine HCl 12.5 mg 08/10/18 14:00 08/11/18 06:24 Phenergan RI Not Given Q6H [facility] Sodium Chloride 10 ml 08/05/18 10:00 08/11/18 10:15 Sodium Chloride Flush Syringe 10 Ml IV 10 ml BID [facility] Administration Sodium Chloride 10 ml 08/05/18 02:44 Sodium Chloride Flush Syringe 10 Ml IV PRN PRN LINE FLUSH Nutrition/Malnutrition Assess - Dietary Evaluation Nutrition/Malnutrition Findings: Nutrition Notes Start: 08/09/18 11:17 Freq: Status: Active Protocol: Document 08/11/18 11:00 OL (Rec: 08/11/18 11:12 OL [id number]) Nutrition Notes Initial or Follow up Reassessment Current Diagnosis Coronary Artery Disease, Diabetes,Hypertension,Heart Failure,Hyperlipidemia Other Pertinent Diagnosis cholecystitis, cardiomyopathy Current Diet CPN at 75mL/hr Labs/Tests K 3.5 Cl 95.2 CO2 32 Pertinent Medications Reviewed Height 5 ft 5 in Weight 82.7 kg [place] Body Weight (kg) 56.81 BMI 30.3 Subjective/Other Information Day 3 CPN. CPN infusing at 75mL/hr. Pt. with complains of nausea. Phenergan ordered. Nausea improved. Pt. to have surgery at [facility]. Percent of energy/protein needs met: 47% energy 100% protein Burn Absent Trauma Absent #1 Nutrition Diagnosis Inadequate oral intake Diagnosis Progress(for reassessment Continues documentation) Is patient on ventilator? No Is Patient Ambulatory and/or Out of Bed Yes REE-([facility]-ambulatory/OOB) [ 1797.744 NUTR.MSJOOB] Calculation Used for Recommendations [facility] Additional Notes PRO: 80 - 96g PRO/d (1.0 -1.2g /kg) fluid: < 2.0L Nutrition Intervention Change Diet Order: CPN at 75mL/hr Nutrition Support: CPN at 75mL/hr: 11.1% dextrose , 90mEq K, 20mmol Phos, chloride:acetate 100:0, MVI, thiamine Osmolarity 1351 Kcal 1,000 Protein (gm) 80 Carbohydrates (gm) 200 Fat (gm) 0 Fluid (mL) 1,800 Fiber (gm) 0 Goal #1 CPN to meet needs as best as possible Anticipated Discharge Needs: TPN Follow-Up By: 08/12/18 Additional Comments Labs in AM: BMP, Mg, Phos
--- NOTE | 2018-08-11 13:46 | Progress Note ---
Assessment and Plan - Patient Problems (1) Dilated cardiomyopathy Current Visit: Yes Status: Acute Plan to address problem: Coronary artery disease and ischemic cardiomyopathy, on medical therapy. Nonsustained ventricular tachycardia for LifeVest monitoring. Subjective Date of service: 08/11/18 Principal diagnosis: Abdominal Pain Interval history: Patient has no cardiac complaints, workup and options for management of symptomatic gallbladder disease is ongoing. Objective Vital Signs Temp Pulse Pulse Resp BP BP Pulse Ox 08/11/18 10:15 71 92/58 08/11/18 10:14 71 92/58 08/11/18 10:00 71 16 94 08/11/18 09:50 97.7 F 71 16 92/58 94 08/11/18 04:51 97.4 F L 75 20 117/69 73 L 08/11/18 01:16 98.2 F 76 20 104/76 98 08/10/18 22:00 90 08/10/18 20:48 98 H 18 122/91 93 08/10/18 16:56 98.0 F 93 H 18 125/77 93 - Physical Examination General: No Apparent Distress HEENT: Positive: PERRL Neck: Positive: trachea midline Cardiac: Positive: Reg Rate and Rhythm Lungs: Positive: Decreased Breath Sounds Neuro: Positive: Grossly Intact Abdomen: Positive: Soft Skin: Positive: Clear Extremities: Absent: edema - Labs and Meds Comprehensive Metabolic Panel 08/11/18 Range/Units 07:23 Sodium 138 (137-145) mmol/L Potassium 3.5 L (3.6-5.0) mmol/L Chloride 95.2 L (98-107) mmol/L Carbon Dioxide 32 H (22-30) mmol/L BUN 21 H (7-17) mg/dL Creatinine 0.7 (0.7-1.2) mg/dL Glucose 192 H (65-100) mg/dL Calcium 8.3 L (8.4-10.2) mg/dL
[2018-08-11] MEDS ORDERED: TPN ADULT 1,800 ML IV SCH (20:00)
[2018-08-11] MEDS: LOVENOX SUB-Q SCH (22:31)
[2018-08-11] MEDS: LANTUS SUB-Q SCH (22:31)
[2018-08-12] MEDS: PHENERGAN PR SCH ×5 (00:17→23:03)
[2018-08-12] MEDS: LASIX IV SCH ×2 (06:17→19:03)
[2018-08-12 07:29] LABS: BUN/Creatinine Ratio 31; Blood Urea Nitrogen 25 mg/dL (7-17); Calcium 8.2 mg/dL (8.4-10.2); Hemolysis Index 4
[2018-08-12] MEDS: HumuLIN R SUB-Q SCH ×4 (10:26→23:04)
[2018-08-12] MEDS: HumaLOG SUB-Q SCH ×4 (10:27→21:51)
[2018-08-12] MEDS: ZESTRIL PO SCH (10:31)
[2018-08-12] MEDS: SODIUM CHLORIDE FLUSH SYRINGE 10 ML IV SCH ×2 (10:32→23:05)
[2018-08-12] MEDS: K-DUR PO SCH ×2 (10:32→23:05)
[2018-08-12] MEDS: PROzac PO SCH (10:32)
[2018-08-12] MEDS: COREG PO SCH ×2 (10:33→23:05)
[2018-08-12] MEDS: BABY ASPIRIN PO SCH (10:33)
--- NOTE | 2018-08-12 12:04 | Event Note ---
Date: 08/12/18 Discussed with surgery. Patient apparently has symptomatic gallbladder disease, and needs cholecystectomy. Overall, with a history of coronary disease and ischemic cardiomyopathy, high perioperative risk is high regards to postoperative heart failure and postoperative ventricular arrhythmias. Cardiac recommendation will be to proceed with surgery, using the most conservative laparoscopic approach for gallbladder removal. Although perioperative risk is elevated, this coming Fausto with judicious use of fluids and transfusions, ICU monitoring, daily EKGs and optimal medical management of any postoperative arrhythmias. I believe the alternative proposal of a cholecystostomy tube drainage will lead to a more sustained cardiac stress over a longer period in terms of pain, infection and prolonged recovery time.
--- NOTE | 2018-08-12 16:37 | Progress Note ---
Assessment and Plan Assessment and plan: Abdominal pain and nausea and vomiting - GI consulted - HIDA scan with CCK showed EF of 8% - MRCP normal - [facility] was called and recommended to put percutaneous tube, TPN, ICD and will see the patient for elective cholecystectomy will be outpatient -Patient will need TPN for 90 days or more due to clinically condition - patient not a candidate for Enterall feeding due to persistent nasusea and vomiting and increased risk for aspiration - PICC line was placed and patient is on TPN - abdominal pain is controlled Diabetes - On long-acting and sliding scale insulin - Blood glucose is on target History of CABG, CHF - Ejection fraction 15-20%, patient has non sustained V. tach - Continue home medication - Cardiology consulted and recommend life vest at discharge History of depression - Continue fluoxetine DVT prophylaxis - On Lovenox Disposition -Continue inpatient care -Patient need TPN arrangement as an O/P -Chest management consult for TPN and life vest History Interval history: Patient seen and examined, remains with intermittent epigastric pain. some nausea and vomiting still present. Hospitalist Physical - Physical exam Narrative exam: Not in cardiopulmonary distress. The patient is obese. Vital signs as documented. Head exam is unremarkable. No scleral icterus . Neck is without jugular venous distension, thyromegaly, or carotid bruits. Lungs are clear to auscultation. Cardiac exam reveals regular rate and Rhythm. Abdominal exam reveals normal bowel sounds, no masses, no organomegaly and no aortic enlargement, Some tenderness upper quad Extremities are nonedematous and both femoral and pedal pulses are normal. BROKERAGE MANAGER: Alert and oriented 3. No focal weakness. - Constitutional Vitals: Temp Pulse Resp BP Pulse Ox 97.4 F L 68 18 100/58 96 08/12/18 09:20 08/12/18 12:20 08/12/18 09:20 08/12/18 12:20 08/12/18 12:20 General appearance: Present: no acute distress Results - Labs CBC & Chem 7: 08/06/18 05:51 08/12/18 05:57 Labs: Laboratory Last Values WBC 7.1 K/mm3 (4.5-11.0) 08/06/18 05:51 RBC 4.67 M/mm3 (3.65-5.03) 08/06/18 05:51 Hgb 11.9 gm/dl (10.1-14.3) 08/06/18 05:51 Hct 38.2 % (30.3-42.9) 08/06/18 05:51 MCV 82 fl (79-97) 08/06/18 05:51 MCH 26 pg (28-32) L 08/06/18 05:51 MCHC 31 % (30-34) 08/06/18 05:51 RDW 17.9 % (13.2-15.2) H 08/06/18 05:51 Plt Count 284 K/mm3 (140-440) 08/06/18 05:51 Lymph % (Auto) 21.2 % (13.4-35.0) 08/06/18 05:51 [place] % (Auto) 6.9 % (0.0-7.3) 08/06/18 05:51 Eos % (Auto) 1.4 % (0.0-4.3) 08/06/18 05:51 Baso % (Auto) 1.6 % (0.0-1.8) 08/06/18 05:51 Lymph # 1.5 K/mm3 (1.2-5.4) 08/06/18 05:51 [place] # 0.5 K/mm3 (0.0-0.8) 08/06/18 05:51 Eos # 0.1 K/mm3 (0.0-0.4) 08/06/18 05:51 Baso # 0.1 K/mm3 (0.0-0.1) 08/06/18 05:51 Seg Neutrophils % 68.9 % (40.0-70.0) 08/06/18 05:51 Seg Neutrophils # 4.9 K/mm3 (1.8-7.7) 08/06/18 05:51 PT 14.6 Sec. (12.2-14.9) 08/04/18 23:01 INR 1.07 (0.87-1.13) 08/04/18 23:01 APTT 24.4 Sec. (24.2-36.6) 08/04/18 23:01 Sodium 139 mmol/L (137-145) 08/12/18 05:57 Potassium 4.0 mmol/L (3.6-5.0) 08/12/18 05:57 Chloride 99.2 mmol/L (98-107) 08/12/18 05:57 Carbon Dioxide 30 mmol/L (22-30) 08/12/18 05:57 Anion Gap 14 mmol/L 08/12/18 05:57 BUN 25 mg/dL (7-17) H 08/12/18 05:57 Creatinine 0.8 mg/dL (0.7-1.2) 08/12/18 05:57 Estimated GFR > 60 ml/min 08/12/18 05:57 BUN/Creatinine Ratio 31 % 08/12/18 05:57 Glucose 206 mg/dL (65-100) H 08/12/18 05:57 POC Glucose 212 (70-105) H 08/12/18 09:29 Calcium 8.2 mg/dL (8.4-10.2) L 08/12/18 05:57 Phosphorus 2.70 mg/dL (2.5-4.5) 08/12/18 05:57 Magnesium 2.30 mg/dL (1.7-2.3) 08/12/18 05:57 Total Bilirubin 1.00 mg/dL (0.1-1.2) 08/09/18 12:33 Direct Bilirubin 0.4 mg/dL (0-0.2) H 08/06/18 05:51 Indirect Bilirubin 0.6 mg/dL 08/06/18 05:51 AST 157 units/L (5-40) H 08/09/18 12:33 ALT 217 units/L (7-56) H 08/09/18 12:33 Alkaline Phosphatase 264 units/L (35-129) H 08/09/18 12:33 Troponin T < 0.010 ng/mL (0.00-0.029) 08/10/18 09:18 NT-Pro-B Natriuret Pep 2255 pg/mL (0-900) H 08/04/18 23:05 Total Protein 5.9 g/dL (6.3-8.2) L 08/09/18 12:33 Albumin 3.0 g/dL (3.9-5) L 08/09/18 12:33 Albumin/Globulin Ratio 1.0 % 08/09/18 12:33 Lipase 55 units/L (13-60) 08/04/18 23:05 Active Medications - Current Medications Current Medications: Generic Name Dose Route Start Last Admin Trade Name Diegoq PRN Reason Stop Dose Admin Acetaminophen 650 mg 08/05/18 02:44 08/12/18 04:28 Tylenol PO 650 mg Q4H PRN Administration Pain MILD(1-3)/Fever >100.5/GRIJALVA Aspirin 81 mg 08/05/18 10:00 08/12/18 10:33 Baby Aspirin PO 81 mg QDAY [facility] Administration Atorvastatin Calcium 40 mg 08/05/18 22:00 08/11/18 22:27 Lipitor PO 40 mg QHS [facility] Administration Carvedilol 25 mg 08/05/18 10:00 08/12/18 10:33 Coreg PO 25 mg BID [facility] Administration Enoxaparin Sodium 40 mg 08/07/18 22:00 08/11/18 22:31 Lovenox SUB-Q 40 mg QDAY@2200 [facility] Administration Fluoxetine HCl 40 mg 08/05/18 10:00 08/12/18 10:32 Prozac PO 40 mg QDAY [facility] Administration Furosemide 20 mg 08/05/18 06:00 08/12/18 06:17 Lasix IV 20 mg BID@0600,1800 [facility] Administration Amino Acids/Electrolytes/Dextrose 1,800 mls @ 75 mls/hr 08/11/18 20:00 08/11/18 20:45 Tpn Adult IV 08/12/18 19:59 75 mls/hr DAILY@1999 [facility] Administration Protocol Amino Acids/Electrolytes/Dextrose 1,800 mls @ 75 mls/hr 08/12/18 20:00 Tpn Adult IV 08/13/18 19:59 DAILY@1999 [facility] Protocol Insulin Glargine 20 units 08/05/18 22:00 08/11/18 22:31 Lantus SUB-Q 20 units HS [facility] Administration Insulin Human Lispro 6 unit 08/05/18 07:30 08/12/18 10:27 Humalog SUB-Q 6 unit ACHS [facility] Administration Insulin Human Regular 0 units 08/05/18 07:30 08/12/18 10:26 Humulin R SUB-Q 3 units [facility] Administration Protocol Lisinopril 5 mg 08/05/18 10:00 08/12/18 10:31 Zestril PO 5 mg QDAY [facility] Administration Metoclopramide HCl 10 mg 08/05/18 03:47 08/10/18 14:12 Reglan IV 10 mg Q6H PRN Administration Nausea And Vomiting Ondansetron HCl 4 mg 08/05/18 02:44 08/09/18 20:58 Zofran IV 4 mg Q8H PRN Administration Nausea And Vomiting Oxycodone/Acetaminophen 1 tab 08/05/18 02:44 Percocet 5/325 PO Q6H PRN Pain, Moderate (4-6) Pantoprazole Sodium 40 mg 08/05/18 10:00 08/11/18 10:14 Protonix PO 40 mg DAILY [facility] Administration Potassium Chloride 20 meq 08/05/18 10:00 08/12/18 10:32 K-Dur PO 20 meq Q12HR [facility] Administration Promethazine HCl 12.5 mg 08/10/18 14:00 08/12/18 06:17 Phenergan NE 12.5 mg Q6H [facility] Administration Sodium Chloride 10 ml 08/05/18 10:00 08/12/18 10:32 Sodium Chloride Flush Syringe 10 Ml IV 10 ml BID [facility] Administration Sodium Chloride 10 ml 08/05/18 02:44 Sodium Chloride Flush Syringe 10 Ml IV PRN PRN LINE FLUSH Nutrition/Malnutrition Assess - Dietary Evaluation Nutrition/Malnutrition Findings: Nutrition Notes Start: 08/09/18 11:17 Freq: Status: Active Protocol: Document 08/12/18 10:52 OL (Rec: 08/12/18 10:55 OL [id number]) Nutrition Notes Initial or Follow up Reassessment Current Diagnosis Coronary Artery Disease, Diabetes,Hypertension,Heart Failure,Hyperlipidemia Other Pertinent Diagnosis cholecystitis, cardiomyopathy Current Diet Clear liquid + TPN Labs/Tests Reviewed Pertinent Medications Reviewed Height 5 ft 5 in Weight 82.7 kg [place] Body Weight (kg) 56.81 BMI 30.3 Subjective/Other Information Day 4 CPN. Pt. tolerating well . Nausea greatly improved. Pt. will need TPN upon d/c. Percent of energy/protein needs met: 57% energy/100% protein Burn Absent Trauma Absent #1 Nutrition Diagnosis Inadequate oral intake Diagnosis Progress(for reassessment Continues documentation) Is patient on ventilator? No Is Patient Ambulatory and/or Out of Bed Yes REE-([facility]-ambulatory/OOB) [ 1797.744 NUTR.MSJOOB] Calculation Used for Recommendations [facility] Additional Notes PRO: 80 - 96g PRO/d (1 -1.2g/ kg) fluid: < 2.0L Nutrition Intervention Change Diet Order: CPN at 75mL/hr. Nutrition Support: CPN at 75mL/hr: 13.9% dextrose , 25mmol Phos, MVI Osmolarity: 1490 Kcal 1,170 Protein (gm) 80 Carbohydrates (gm) 250 Fat (gm) 0 Fluid (mL) 1,800 Fiber (gm) 0 Add Supplement/Snack (indicate name/kcal Ensure Clear daily /protein ) Provides kCal: 240 Provides Protein (gm) 8 Goal #1 CPN to meet needs as best as possible Anticipated Discharge Needs: TPN Follow-Up By: 08/13/18 Additional Comments Labs in AM: BMP, Mg, Phos, triglycerides
--- NOTE | 2018-08-12 17:07 | Progress Note ---
Assessment and Plan 62 yo F with biliary dyskinesia Plan: 1. adv to full liquids 2. TPN 3. discharge if tolerating liquids 4. follow up with [facility] as outpatient for elective cholecystectomy. Discussed case with Dr. Vidal today. I discussed case with anesthesia upon initial consult and recommendation was for patient to have surgery at higher level of care facility. Subjective Date of service: 08/12/18 Narrative: Pt seen and examined. Feels better overall. Has tolerated clear liquids. No n/v. Abdominal pain is better controlled. Objective Vital Signs - 12hr 08/12/18 08/12/18 08/12/18 09:20 10:31 10:33 Temperature 97.4 F L Pulse Rate 79 76 76 Respiratory 18 Rate Blood Pressure 117/81 O2 Sat by Pulse 100 Oximetry 08/12/18 12:20 Temperature Pulse Rate 68 Respiratory Rate Blood Pressure 100/58 O2 Sat by Pulse 96 Oximetry - General physical appearance Narrative Exam: Gen: AAOx3. NAD CV: s1, S2+ Resp: even and unlabored Abd: soft ext: no c/c/e - Labs 08/06/18 05:51 08/12/18 05:57 Diabetes panel 08/12/18 Range/Units 05:57 Sodium 139 (137-145) mmol/L Potassium 4.0 (3.6-5.0) mmol/L Chloride 99.2 (98-107) mmol/L Carbon Dioxide 30 (22-30) mmol/L BUN 25 H (7-17) mg/dL Creatinine 0.8 (0.7-1.2) mg/dL Glucose 206 H (65-100) mg/dL Calcium 8.2 L (8.4-10.2) mg/dL Calcium panel 08/12/18 Range/Units 05:57 Calcium 8.2 L (8.4-10.2) mg/dL Phosphorus 2.70 (2.5-4.5) mg/dL Pituitary panel 08/12/18 Range/Units 05:57 Sodium 139 (137-145) mmol/L Potassium 4.0 (3.6-5.0) mmol/L Chloride 99.2 (98-107) mmol/L Carbon Dioxide 30 (22-30) mmol/L BUN 25 H (7-17) mg/dL Creatinine 0.8 (0.7-1.2) mg/dL Glucose 206 H (65-100) mg/dL Calcium 8.2 L (8.4-10.2) mg/dL Adrenal panel 08/12/18 Range/Units 05:57 Sodium 139 (137-145) mmol/L Potassium 4.0 (3.6-5.0) mmol/L Chloride 99.2 (98-107) mmol/L Carbon Dioxide 30 (22-30) mmol/L BUN 25 H (7-17) mg/dL Creatinine 0.8 (0.7-1.2) mg/dL Glucose 206 H (65-100) mg/dL Calcium 8.2 L (8.4-10.2) mg/dL
[2018-08-12] MEDS: PROTONIX PO SCH (19:04)
[2018-08-12] MEDS ORDERED: TPN ADULT 1,800 ML IV SCH (20:00)
[2018-08-12] MEDS: LANTUS SUB-Q SCH (21:51)
[2018-08-12] MEDS: LOVENOX SUB-Q SCH (23:04)
[2018-08-13] MEDS: LASIX IV SCH (05:12)
[2018-08-13] MEDS: PHENERGAN PR SCH ×2 (05:17→11:39)
[2018-08-13 06:04] LABS: BUN/Creatinine Ratio 34; Blood Urea Nitrogen 27 mg/dL (7-17); Calcium 8.4 mg/dL (8.4-10.2); Hemolysis Index 0
--- NOTE | 2018-08-13 07:11 | Discharge Summary ---
Providers - Providers Date of Admission: 08/05/18 04:45 Attending physician: MADELINE KOENIG MD 08/05/18 04:52 Consult to Physician [CONS] Routine Comment: Consulting Provider: MARY EVANS Physician Instructions: Reason For Exam: abdominal pain, abnormal US 08/05/18 20:10 Consult to Physician [CONS] Routine Comment: Consulting Provider: JHONY FELTON Physician Instructions: for vtach/vfib Reason For Exam: Vfib/vtach 08/08/18 13:43 Consult to Physician [CONS] Routine Comment: Consulting Provider: TRISTA FRY Physician Instructions: consult surgery Reason For Exam: biliary dyskinesia 08/09/18 09:51 Consult to Interventional Radiology [CONS] Routine Consulting Provider: ALEX MAYFIELD Reason For Exam: percutaneous cholecystostomy tube Place consult to:: Dr. Mayfield Notified:: Radha SANCHEZ Phone number called:: Was contact made?: Yes If yes, spoke with:: Sue-office Time called:: 11:00 PICC Line Insertion [Consult to PICC Line RN] [CONS] Routine Reason For Exam: needs TPN Type Line:: PICC 08/09/18 09:55 Consult to Dietitian/Nutrition [CONS] Routine Physician Instructions: Reason For Exam: Reason for Consult: Write/Manage TPN/PPN Primary care physician: LIANNA LUDWIG Hospitalization Reason for admission: chest pain Condition: Stable Hospital course: Pt is a 62-year-old female with PMHx CAD s/p CABG, CHF, DM type 2 on insulin, hyperlipidemia, HTN who presents to the ER for c/o SOB, epigastric abdominal pain, nausea and vomiting for 2 weeks. According to pt's daughter in room, the patient has been sick for more that 2 weeks, she states that the pt has been complaining of persistent pain in the epigastric area, that radiates to the RUQ, the pain is associated with n/v yellow liquid. Pt and her daughter states that she was seen here in the ER 2 weeks ago for the same complaints, and discharged. Pt states that the pain is getting worse, she reports food stocking in her epigastric area, SOB with minimal exertion and fatigued. In the ER, pt had an US that shows gallbladder wall thickening of uncertain etiology, dilated common bile duck measuring 14mm, he ALT was 58, BNP was 2255, GI is consulted for evaluation and pt is admitted for further evaluation and treatment. it was quickly noted that the patient has significant biliary disease and GI r ecommended cardiac evaluation prior to any procedure. Per cardiology evaluation Recommendations: Lifevest placement before discharge DUE TO NON SUSTATINED VTACH. this was obtained and patient is wearing currently. Continue medical therapy for coronary artery disease, chronic stable angina and ischemic cardiomyopathy. 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 mrcp WAS DONE AND NORMAL Cath 10/2017 - severe [place] vessel disease, patent BRENDA to LAD, patent SVG to OM and occluded SVG to RCA Surgery also evalutated the patient and started the patient on TPN, although now tolerating Clear liquids it is still recommended to continue TPN and follow with Surgeon at [facility] and also cardiology outpatient. The lifevest was arranged and PICC was placed for the TPN Patient will need TPN for 90 days or more due to clinically condition AND she is not a candidate for Enterall feeding due to persistent nasusea and vomiting and increased risk for aspiration Acute Gastroenteritis secondary to biliary dyskinesia Peritoneal Irritation Type 2 DM with hyperglycemia Coronary artery disease s/p CABG Dialated Cardiomyopathy NSVT Atypical chest pain secondary to bilary dyskinesia Ischemic DISEASE LVEF 15-20% by [facility] 04/2018 depression Disposition: [id number] HOME UNDER HOME [facility] Time spent for discharge: 35 mins Core Measure Documentation - Palliative Care Palliative Care/ Comfort Measures: Not Applicable - Core Measures Any of the following diagnoses?: none Exam - Physical Exam Narrative exam: Not in cardiopulmonary distress. The patient is obese. Vital signs as documented. Head exam is unremarkable. No scleral icterus . Neck is without jugular venous distension, thyromegaly, or carotid bruits. Lungs are clear to auscultation. Cardiac exam reveals regular rate and Rhythm. Abdominal exam reveals normal bowel sounds, no masses, no organomegaly and no aortic enlargement, Extremities are nonedematous and both femoral and pedal pulses are normal. 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 No focal weakness. - Constitutional Vitals: Temp Pulse Resp BP Pulse Ox 97.2 F L 74 20 103/66 98 08/13/18 00:01 08/13/18 05:19 08/13/18 05:19 08/13/18 05:19 08/13/18 05:19 Plan Activity: advance as tolerated, fall precautions Diet: low salt, diabetic Special Instructions: record blood sugar diary Additional Instructions: follow with her primary production drilling machine operator in 3-5 days. follow with general surgery at [facility] for evaluation 3-5 days Follow up with: LIANNA LUDWIG MD [Primary Care Provider] - 7 Days Prescriptions: Furosemide [Lasix TAB] 40 mg PO QDAY #30 tablet oxyCODONE /ACETAMINOPHEN [Percocet 5/325 mg] 1 tab PO Q6H PRN #14 tablet PRN Reason: Pain, Moderate (4-6) Promethazine [Phenergan SUPPOS] 12.5 mg [place] Q6H #30 supp.rect
[2018-08-13] MEDS: BABY ASPIRIN PO SCH (09:29)
[2018-08-13] MEDS: K-DUR PO SCH (09:29)
[2018-08-13] MEDS: COREG PO SCH (09:29)
[2018-08-13] MEDS: ZESTRIL PO SCH (09:29)
[2018-08-13] MEDS: PROTONIX PO SCH (09:29)
[2018-08-13] MEDS: PROzac PO SCH (09:29)
[2018-08-13] MEDS: SODIUM CHLORIDE FLUSH SYRINGE 10 ML IV SCH (09:30)
[2018-08-13] MEDS: HumuLIN R SUB-Q SCH ×2 (09:30→11:39)
[2018-08-13] MEDS: HumaLOG SUB-Q SCH ×2 (09:30→11:40)
--- NOTE | 2018-08-13 13:52 | Progress Note ---
Assessment and Plan - Patient Problems (1) Dilated cardiomyopathy Current Visit: Yes Status: Acute Plan to address problem: History of complex three-vessel coronary artery disease, most recent cardiac catheterization shows coronary lesions stable with 2 patent grafts, and patient on medical therapy for residual small vessel disease. Most significant risk for noncardiac surgery is this severe dilated cardiomyopathy, which can be managed with careful perioperative fluid administration, and ICU monitoring for any tachyarrhythmias. Stable for cardiac discharge on guideline directed medical therapy and LifeVest monitoring. Subjective Date of service: 08/13/18 Principal diagnosis: Abdominal Pain Interval history: Patient is comfortable, no cardiac complaints. Her planned gallbladder surgery has been rescheduled to be done some outpatient at [facility]. Objective Vital Signs Temp Pulse Resp BP Pulse Ox 08/13/18 10:00 69 18 94 08/13/18 09:29 108/58 08/13/18 07:19 98.0 F 18 104/63 08/13/18 05:19 74 20 103/66 98 08/13/18 00:43 61 08/13/18 00:01 97.2 F L 79 20 90/55 93 08/12/18 20:18 97.5 F L 65 18 91/59 90 - Physical Examination General: No Apparent Distress HEENT: Positive: PERRL Neck: Positive: trachea midline Cardiac: Positive: Reg Rate and Rhythm Lungs: Positive: Decreased Breath Sounds Neuro: Positive: Grossly Intact Abdomen: Positive: Soft Skin: Positive: Clear Extremities: Absent: edema - Labs and Meds Lipids 08/13/18 Range/Units 05:23 Triglycerides 53 (2-149) mg/dL Comprehensive Metabolic Panel 08/13/18 Range/Units 05:23 Sodium 139 (137-145) mmol/L Potassium 4.8 (3.6-5.0) mmol/L Chloride 101.0 (98-107) mmol/L Carbon Dioxide 28 (22-30) mmol/L BUN 27 H (7-17) mg/dL Creatinine 0.8 (0.7-1.2) mg/dL Glucose 244 H (65-100) mg/dL Calcium 8.4 (8.4-10.2) mg/dL
[2018-08-13 15:53] VITALS: BP 98/64
[2018-08-13] MEDS ORDERED: TPN ADULT 1,800 ML IV SCH (20:00)
== END 2018-08-13 19:00 | disposition home health service (06) | DRG 444 ==
LOC: ED 21:49 → 4A 08-05 04:45
PROVIDERS: ADMIT Internal Medicine; ATTEND Internal Medicine
PROC: 3E0436Z Introduction of Nutritional Substance into Central Vein, Percutaneous Approach (ICD-10-PCS; principal; 2018-08-09)
PROC: 02HV33Z Insertion of Infusion Device into Superior Vena Cava, Percutaneous Approach (ICD-10-PCS; 2018-08-09)
DX: K82.8 Other specified diseases of gallbladder (principal); K65.9 Peritonitis, unspecified; I50.22 Chronic systolic (congestive) heart failure; I42.0 Dilated cardiomyopathy; I47.2 Ventricular tachycardia; K52.9 Noninfective gastroenteritis and colitis, unspecified; I25.10 Atherosclerotic heart disease of native coronary artery without angina pectoris; I11.0 Hypertensive heart disease with heart failure; E78.5 Hyperlipidemia, unspecified; G89.29 Other chronic pain; F32.9 Major depressive disorder, single episode, unspecified; I25.119 Atherosclerotic heart disease of native coronary artery with unspecified angina pectoris; I47.9 Paroxysmal tachycardia, unspecified; E11.65 Type 2 diabetes mellitus with hyperglycemia; Z79.82 Long term (current) use of aspirin; Z79.4 Long term (current) use of insulin; Z95.5 Presence of coronary angioplasty implant and graft; Z87.891 Personal history of nicotine dependence; Z88.5 Allergy status to narcotic agent; Z95.1 Presence of aortocoronary bypass graft
CPT/HCPCS: 36415; 71045; 71046; 74181; 76705; 78226; 78227; 80048; 80053; 80076; 82962; 83690; 83735; 83880; 84100; 84478; 84484; 85025; 85610; 85730; 93005; 93010; 93308; 93321; 93325; 94640; 94760; G0378; A9270-GY; A9537; J0500; J1170; J1650; J1815; J1940; J2405; J2765; J2805

== ENCOUNTER 2019-05-03 23:14 | Inpatient (IN) | payer MEDICARE ==
[2019-05-06 04:33] VITALS: BP 112/65
== END 2019-05-06 17:44 | disposition home or self-care (01) | DRG 293 ==
LOC: ED 23:14 → 4A 05-04 03:36
PROVIDERS: ADMIT Internal Medicine; ATTEND Internal Medicine
DX: I11.0 Hypertensive heart disease with heart failure (principal); I25.708 Atherosclerosis of coronary artery bypass graft(s), unspecified, with other forms of angina pectoris; I50.43 Acute on chronic combined systolic (congestive) and diastolic (congestive) heart failure; I42.0 Dilated cardiomyopathy; I25.5 Ischemic cardiomyopathy; F32.9 Major depressive disorder, single episode, unspecified; E78.5 Hyperlipidemia, unspecified; E11.65 Type 2 diabetes mellitus with hyperglycemia; Z88.6 Allergy status to analgesic agent; Z79.82 Long term (current) use of aspirin; Z79.4 Long term (current) use of insulin; Z79.899 Other long term (current) drug therapy; Z87.891 Personal history of nicotine dependence; Z95.1 Presence of aortocoronary bypass graft; Z82.49 Family history of ischemic heart disease and other diseases of the circulatory system; Z83.3 Family history of diabetes mellitus; Z95.810 Presence of automatic (implantable) cardiac defibrillator; K82.8 Other specified diseases of gallbladder; Z91.19 Patient's noncompliance with other medical treatment and regimen
CPT/HCPCS: 36415; 71045; 71275; 76705; 78452; 80048; 80061; 80076; 82550; 82962; 83690; 83735; 83880; 84484; 85025; 85379; 85610; 85730; 93005; 93010; 93017; 94640; G0378; A9270-GY; A9502; J1650; J1815; J1940; J2405; J2785; J3010; Q9967